=== PATIENT | male | born 1965 | race Caucasian/White ===

== ENCOUNTER → 2017-10-17 14:41 | Outpatient (CLI) | payer MEDICARE, MEDICAID, SELFPAY ==
[2017-10-17 17:22] LABS: Absolute Lymphocyte Count 1.72 X10^3/ul (0.83-4.51); Absolute Neutrophil Count 3.6 X10^3/uL (2.0-7.7); Basophil# 0.04 X10^3/uL; Basophil% 0.7 % (0-1); Eosinophil# 0.09 X10^3/uL; Eosinophils% 1.5 % (0-5); Hematocrit 40.8 % (40-54); Hemoglobin 14.2 g/dl (13.0-16.5); Lymphocyte # 1.72 X10^3/ul (4.0); Mean Corp Hgb Conc 34.8 g/gl (32-36); Mean Corpuscular Hgb 31.7 pg (27.0-32.0); Mean Corpuscular Volume 91.1 fL (80-94); Mean Platelet Vol. 12.2 fl (6.2-12.0); Monocyte# 0.65 X10^3/uL; Monocyte% 10.6 % (0-10); Neutrophil # 3.63 X10^3/uL (2.7-7.7); Platelet Count 167 K/mm3 (150-450); RBC Distribution Width CV 13.5 % (11.6-14.6); RBC Distribution Width SD 44.5 fl (35.1-43.9); Red Blood Count 4.48 M/mm3 (4.6-6.2); White Blood Count 6.1 K/mm3 (4.4-11.0)
[2017-10-17 17:31] LABS: POSITIVE COUNT NO; POSITIVE DIFFERENTIAL NO; POSITIVE MORPHOLOGY NO
[2017-10-17 17:39] LABS: ALB/GLOB Ratio 0.9 RATIO (0.9-2.4); AST(SGOT) 14 U/L (15-37); Alanine Aminotransfer ALT/SGPT 32 U/L (16-61); Albumin, Serum 3.5 g/dL (3.2-5.0); Alkaline Phosphatase 57 U/L (45-117); Anion Gap 9 (5-15); BUN 15 mg/dL (7-18); BUN/Creat Ratio 18.2 RATIO (10-20); Calcium,Total 8.7 mg/dL (8.5-10.1); Chloride 104 mmol/L (98-107); Creatinine, Serum 0.82 mg/dL (0.70-1.30); EST Glomerular Filtration Rate 104 mL/min (>60); Est Glom Filt Rate - Afr Amer 126 mL/min (>60); Globulin 3.9 g/dL (2.2-4.2); Glucose 127 mg/dL (74-106); Potassium 3.9 mmol/L (3.5-5.1); Protein, Total 7.4 g/dL (6.4-8.2); Sodium Level 139 mmol/L (136-145)
== END ==
PROVIDERS: Family Provider Family Medicine Geriatric Medicine; PCP Family Medicine Geriatric Medicine; Visit Provider Family Medicine Geriatric Medicine
DX: E11.9 Type 2 diabetes mellitus without complications (principal); I10 Essential (primary) hypertension
CPT/HCPCS: 36415; 80053; 84443; 85025

== ENCOUNTER → 2017-12-27 08:46 | Outpatient (CLI) | payer MEDICARE, MEDICAID, SELFPAY ==
[2017-12-27 12:10] LABS: Absolute Lymphocyte Count 1.61 X10^3/ul (0.83-4.51); Absolute Neutrophil Count 4.6 X10^3/uL (2.0-7.7); Basophil# 0.04 X10^3/uL; Basophil% 0.6 % (0-1); Eosinophil# 0.09 X10^3/uL; Eosinophils% 1.3 % (0-5); Hematocrit 40.6 % (40-54); Hemoglobin 14.1 g/dl (13.0-16.5); Lymphocyte # 1.61 X10^3/ul (4.0); Lymphocyte % 22.7 % (19-41); Mean Corp Hgb Conc 34.7 g/gl (32-36); Mean Corpuscular Hgb 31.5 pg (27.0-32.0); Mean Corpuscular Volume 90.6 fL (80-94); Mean Platelet Vol. 12.1 fl (6.2-12.0); Monocyte# 0.74 X10^3/uL; Monocyte% 10.4 % (0-10); Neutrophil # 4.61 X10^3/uL (2.7-7.7); Neutrophil % 64.9 % (47-70); Platelet Count 178 K/mm3 (150-450); RBC Distribution Width CV 13.1 % (11.6-14.6); RBC Distribution Width SD 43.4 fl (35.1-43.9); Red Blood Count 4.48 M/mm3 (4.6-6.2); White Blood Count 7.1 K/mm3 (4.4-11.0)
[2017-12-27 12:11] LABS: POSITIVE COUNT NO; POSITIVE DIFFERENTIAL NO; POSITIVE MORPHOLOGY NO
[2017-12-27 12:23] LABS: ALB/GLOB Ratio 0.9 RATIO (0.9-2.4); AST(SGOT) 11 U/L (15-37); Alanine Aminotransfer ALT/SGPT 28 U/L (16-61); Albumin, Serum 3.5 g/dL (3.2-5.0); Alkaline Phosphatase 68 U/L (45-117); Anion Gap 11 (5-15); BUN 14 mg/dL (7-18); BUN/Creat Ratio 14.8 RATIO (10-20); Calcium,Total 8.6 mg/dL (8.5-10.1); Chloride 103 mmol/L (98-107); Creatinine, Serum 0.95 mg/dL (0.70-1.30); EST Glomerular Filtration Rate 89 mL/min (>60); Est Glom Filt Rate - Afr Amer 107 mL/min (>60); Globulin 3.9 g/dL (2.2-4.2); Glucose 193 mg/dL (74-106); Protein, Total 7.4 g/dL (6.4-8.2); Sodium Level 138 mmol/L (136-145); Thyroid Stim Hormone (TSH) 1.34 uIU/mL (0.358-3.74)
[2017-12-28 08:40] LABS: Vitamin D,25 Hydroxy 15.7 ng/mL (29.95-100.01)
== END ==
PROVIDERS: Family Provider Family Medicine Geriatric Medicine; PCP Family Medicine Geriatric Medicine; Visit Provider Family Medicine Geriatric Medicine
DX: I10 Essential (primary) hypertension (principal); E11.9 Type 2 diabetes mellitus without complications; E55.9 Vitamin D deficiency, unspecified
CPT/HCPCS: 36415; 80053; 82306; 84443; 85025

== ENCOUNTER → 2018-04-17 14:27 | Outpatient (CLI) | payer MEDICARE, MEDICAID, SELFPAY ==
[2018-04-17 16:15] LABS: Absolute Lymphocyte Count 1.75 X10^3/ul (0.83-4.51); Absolute Neutrophil Count 4.8 X10^3/uL (2.0-7.7); Basophil# 0.04 X10^3/uL; Basophil% 0.5 % (0-1); Eosinophils% 1.3 % (0-5); Hematocrit 42.8 % (40-54); Hemoglobin 14.7 g/dl (13.0-16.5); Lymphocyte # 1.75 X10^3/ul (4.0); Lymphocyte % 22.7 % (19-41); Mean Corp Hgb Conc 34.3 g/gl (32-36); Mean Corpuscular Hgb 31.3 pg (27.0-32.0); Mean Corpuscular Volume 91.3 fL (80-94); Mean Platelet Vol. 11.8 fl (6.2-12.0); Monocyte# 0.97 X10^3/uL; Monocyte% 12.6 % (0-10); Neutrophil # 4.83 X10^3/uL (2.7-7.7); Neutrophil % 62.6 % (47-70); POSITIVE COUNT NO; POSITIVE DIFFERENTIAL NO; POSITIVE MORPHOLOGY NO; Platelet Count 206 K/mm3 (150-450); RBC Distribution Width CV 13.7 % (11.6-14.6); Red Blood Count 4.69 M/mm3 (4.6-6.2); White Blood Count 7.7 K/mm3 (4.4-11.0)
[2018-04-17 16:34] LABS: ALB/GLOB Ratio 0.9 RATIO (0.9-2.4); AST(SGOT) 27 U/L (15-37); Alanine Aminotransfer ALT/SGPT 48 U/L (16-61); Albumin, Serum 3.6 g/dL (3.2-5.0); Alkaline Phosphatase 83 U/L (45-117); Anion Gap 13 (5-15); BUN 13 mg/dL (7-18); BUN/Creat Ratio 12.5 RATIO (10-20); Chloride 100 mmol/L (98-107); Creatinine, Serum 1.04 mg/dL (0.70-1.30); EST Glomerular Filtration Rate 79 mL/min (>60); Est Glom Filt Rate - Afr Amer 96 mL/min (>60); Globulin 4.2 g/dL (2.2-4.2); Glucose 160 mg/dL (74-106); Potassium 4.3 mmol/L (3.5-5.1); Protein, Total 7.8 g/dL (6.4-8.2); Sodium Level 138 mmol/L (136-145); Thyroid Stim Hormone (TSH) 2.22 uIU/mL (0.358-3.74)
[2018-04-19 13:34] LABS: Hep C Antibodies 0.2 s/co ratio (0.0-0.9)
== END ==
PROVIDERS: Family Provider Family Medicine Geriatric Medicine; PCP Family Medicine Geriatric Medicine; Visit Provider Family Medicine Geriatric Medicine
DX: E11.9 Type 2 diabetes mellitus without complications (principal); I10 Essential (primary) hypertension; Z13.89 Encounter for screening for other disorder
CPT/HCPCS: 36415; 80053; 84443; 85025; 86803

== ENCOUNTER → 2018-07-22 12:10 | Outpatient (CLI) | payer MEDICARE, MEDICAID, SELFPAY ==
[2018-07-22 12:48] LABS: Absolute Lymphocyte Count 1.84 X10^3/ul (0.83-4.51); Basophil# 0.03 X10^3/uL; Basophil% 0.5 % (0-1); Eosinophil# 0.05 X10^3/uL; Eosinophils% 0.8 % (0-5); Hematocrit 42.2 % (40-54); Hemoglobin 14.2 g/dl (13.0-16.5); Lymphocyte # 1.84 X10^3/ul (4.0); Mean Corp Hgb Conc 33.6 g/gl (32-36); Mean Corpuscular Hgb 30.4 pg (27.0-32.0); Mean Corpuscular Volume 90.4 fL (80-94); Mean Platelet Vol. 11.6 fl (6.2-12.0); Monocyte# 0.61 X10^3/uL; Monocyte% 9.3 % (0-10); Neutrophil # 4.03 X10^3/uL (2.7-7.7); Neutrophil % 61.4 % (47-70); Platelet Count 214 K/mm3 (150-450); RBC Distribution Width SD 46.2 fl (35.1-43.9); Red Blood Count 4.67 M/mm3 (4.6-6.2); White Blood Count 6.6 K/mm3 (4.4-11.0)
--- NOTE | 2018-07-22 12:51 | RAD_ITS ---
STUDY: X-RAY - ABDOMEN/PELVIS REASON FOR EXAM: Male, 53 years old. Constipation. TECHNIQUE: AP supine and upright views of the abdomen and pelvis. COMPARISON: Comparison is made with prior study dated September 02, 2016. FINDINGS: Normal visualized lung bases. There is a moderate amount of colonic fecal material. There is no demonstrated free abdominal air. The visualized liver, spleen and kidneys are grossly normal in size and morphology. Normal soft tissue structures. There are degenerative changes of the visualized lumbar spine. RAD/[employer] Decub and/or Erect IMPRESSION: Moderate amount of fecal material is seen in the colon. Electronically Signed: Rafiq Sam MD at 13:38 EST Tel [phone], Service support ,
[2018-07-22 12:56] LABS: POSITIVE COUNT NO; POSITIVE DIFFERENTIAL NO; POSITIVE MORPHOLOGY NO
[2018-07-22 13:24] LABS: ALB/GLOB Ratio 0.9 RATIO (0.9-2.4); AST(SGOT) 11 U/L (15-37); Alanine Aminotransfer ALT/SGPT 26 U/L (16-61); Albumin, Serum 3.5 g/dL (3.2-5.0); Alkaline Phosphatase 81 U/L (45-117); Anion Gap 9 (5-15); BUN 10 mg/dL (7-18); BUN/Creat Ratio 9.6 RATIO (10-20); Calcium,Total 8.6 mg/dL (8.5-10.1); Chloride 106 mmol/L (98-107); Creatinine, Serum 1.04 mg/dL (0.70-1.30); EST Glomerular Filtration Rate 79 mL/min (>60); Est Glom Filt Rate - Afr Amer 96 mL/min (>60); Globulin 4.1 g/dL (2.2-4.2); Glucose 113 mg/dL (74-106); Potassium 3.8 mmol/L (3.5-5.1); Protein, Total 7.6 g/dL (6.4-8.2); Sodium Level 139 mmol/L (136-145); Thyroid Stim Hormone (TSH) 2.37 uIU/mL (0.358-3.74)
== END ==
PROVIDERS: Family Provider Family Medicine Geriatric Medicine; PCP Family Medicine Geriatric Medicine; Referring Provider Family Medicine Geriatric Medicine; Visit Provider Family Medicine Geriatric Medicine
DX: E11.9 Type 2 diabetes mellitus without complications (principal); I10 Essential (primary) hypertension
CPT/HCPCS: 36415; 74019; 80053; 84443; 85025

== ENCOUNTER 2018-08-06 17:38 | Emergency (ER) | payer MEDICARE, MEDICAID, SELFPAY ==
[2018-08-06 17:40] VITALS: BP 134/77; PULSE 83; RESP 18; TEMP 36.6; O2SAT 97; BMI 34.7
[2018-08-06 17:54] VITALS: TEMP 36.6
--- NOTE | 2018-08-06 18:16 | ED.VISSUMM ---
- ER Visit Summary Date of Service: 08/06/18 Chief Complaint: Rash History of Present Illness: The patient is a 53 M presenting for evaluation secondary to a skin rash. Patient lives in a [facility] has an underlying history of seizures diabetes. Patient apparently has had a rash over the course of the last week on his left tubbs. He denies any injuries. He denies any pain. Denies any constitutional symptoms such as fever. Patient's caregiver who is present states that the patient typically does not complain about things however. Physical Examination: Physical exam unremarkable except for examination of the patient's left lower extremity. There is a palm sized area of erythema with 2 discrete ulcerations. There is no subcutaneous emphysema. There is no lymphangitic streaking. 2+ PT pulse that is bilaterally symmetric with contralateral side. Test Results: None indicated Emergency Department Course and Treatment: Patient presented secondary to a rash. Physical exam likely consistent with cellulitis. Patient will be treated with a course of Keflex and nonstick dressings. He will follow-up with primary care in the next 2-3 days. Disposition: Discharge Impression: 1. Left leg cellulitis This note was generated with [employer] dictation software. It may contain incorrect words, spelling, and punctuation that were not noted in review of the chart prior to signing ED Disposition - Plan for ED Patient: Disposition: Home or Assisted Living Chief Complaint: Cellulitis Diagnosis: Left leg cellulitis Instructions: Discharge Instructions for Cellulitis Prescriptions: Cephalexin [Keflex] 500 mg PO Q6 #40 cap Referrals: Cali Lopez Chi, MD [Primary Care Provider] - 2 Days Additional Instructions: Perform dressing changes with a nonstick dressing once to twice a day
--- NOTE | 2018-08-06 18:20 | ED.DCSUM_ITS ---
- ER Visit Summary Date of Service: 08/06/18 Chief Complaint: Rash History of Present Illness: The patient is a 53 M presenting for evaluation secondary to a skin rash. Patient lives in a [facility] has an underlying history of seizures diabetes. Patient apparently has had a rash over the course of the last week on his left tubbs. He denies any injuries. He denies any pain. Denies any constitutional symptoms such as fever. Patient's caregiver who is present states that the patient typically does not complain about things however. Physical Examination: Physical exam unremarkable except for examination of the patient's left lower extremity. There is a palm sized area of erythema with 2 discrete ulcerations. There is no subcutaneous emphysema. There is no lymphangitic streaking. 2+ PT pulse that is bilaterally symmetric with contralateral side. Test Results: None indicated Emergency Department Course and Treatment: Patient presented secondary to a rash. Physical exam likely consistent with cellulitis. Patient will be treated with a course of Keflex and nonstick dressings. He will follow-up with primary care in the next 2-3 days. Disposition: Discharge Impression: 1. Left leg cellulitis This note was generated with [employer] dictation software. It may contain incorrect words, spelling, and punctuation that were not noted in review of the chart pr ior to signing ED Disposition - Plan for ED Patient: Disposition: Home or Assisted Living Chief Complaint: Cellulitis Diagnosis: Left leg cellulitis Instructions: Discharge Instructions for Cellulitis Prescriptions: Cephalexin [Keflex] 500 mg PO Q6 #40 cap Referrals: Cali Lopez Chi, MD [Primary Care Provider] - 2 Days Additional Instructions: Perform dressing changes with a nonstick dressing once to twice a day
[2018-08-06 18:40] VITALS: BP 120/77; PULSE 80; RESP 14
--- OUTSIDE RECORDS SUMMARY | 2018-09-23 00:03 | XMS RPT_ITS ---
:1965 Author Organization OHIP Support Name Relationship Address Phone D Unavailable Unavailable Unavailable ALDO, MALLORY Unavailable Unavailable + NURSE, DENIS Unavailable [address] + [place] [address] D Unavailable Unavailable Unavailable ALDO, MALLORY Unavailable Unavailable + NURSE, DENIS Unavailable [address] + [place] [address] D Unavailable Unavailable Unavailable ALDO, MALLORY Unavailable Unavailable + NURSE, DENIS Unavailable [address] + [place] [address] D Unavailable Unavailable Unavailable ALDO, MALLORY Unavailable Unavailable + NURSE, DENIS Unavailable [address] + [place] [address] D Unavailable Unavailable Unavailable ALDO, MALLORY Unavailable Unavailable + NURSE, DENIS Unavailable [address] + [place] [address] D Unavailable Unavailable Unavailable ALDO, MALLORY Unavailable Unavailable + NURSE, DENIS Unavailable [address] + [place] [address] D Unavailable Unavailable Unavailable PAULA JOVANNY Unavailable [address] + [place] [address] NURSE, DENIS Unavailable [address] + [place] [address] D Unavailable Unavailable Unavailable MITCHELL, JOVANNY Unavailable [address] + [place] [address] ANNABEL MERAZ Unavailable [address] + [place] [address] D Unavailable Unavailable Unavailable JOVANNY MITCHELL Unavailable [address] + [place] [address] ANNABEL MERAZ Unavailable [address] + [place] [address] D Unavailable Unavailable Unavailable PAULA JOVANNY Unavailable [address] + [place] [address] ANNABEL MERAZ Unavailable [address] + [place] [address] Care Team Providers Name Role Phone John, Cali Chi Primary Care Unavailable Brent Pardo Attending Unavailable John, Cali Chi Attending Unavailable John, Cali Chi Primary Care Unavailable Anival, Becky E Attending Unavailable John, Cali Chi Primary Care Unavailable John, Cali Chi Attending Unavailable John, Cali Chi Primary Care Unavailable John, Cali Chi Referring Unavailable John, Cali Chi Attending Unavailable John, Cali Chi Primary Care Unavailable John, Cali Chi Attending Unavailable John, Cali Chi Primary Care Unavailable John, Cali Chi Attending Unavailable John, Cali Chi Primary Care Unavailable Anival, Becky E Attending Unavailable John, Cali Chi Primary Care Unavailable Anival, Becky E Consulting Unavailable Anival, Becky E Attending Unavailable John, Cali Chi Primary Care Unavailable Anival, Becky E Attending Unavailable John, Cali Chi Primary Care Unavailable Anival, Becky E Consulting Unavailable Vince Rodas Referring Unavailable PROBLEMS PROBLEMS DATE TYPE CONDITION / CODE ATTENDING STATUS SOURCE 08/08/2018 Unknown L03.119 - Cellulitis John, Cali Chi Active [place] of unspecified part Community of limb / Hospital L03.119(ICD-10) Repository 08/08/2018 Unknown B95.62 - Methicillin John, Cali Chi Active [facility] resistant Community Staphylococcus Hospital aureus infection as Repository the cause of diseases classified elsewhere / B95.62(ICD-10) 07/22/2018 Unknown E11.9 - Type 2 John, Cali Chi Active [place] diabetes mellitus Community without Hospital complications / Repository E11.9(ICD-10) 07/22/2018 Unknown I10 - Essential John, Cali Chi Active [facility] (primary) Community hypertension / Hospital I10(ICD-10) Repository 12/27/2017 Unknown E55.9 - Vitamin D John, Cali Chi Active [place] deficiency, Community unspecified / Hospital E55.9(ICD-10) Repository PROCEDURES PROCEDURES No Procedure Records FoundRESULTS RESULTS WOUND CTR HISTORY Observed: 08/14/2018 Status: F Source: [place] AND PHYSICAL 9:41 PM [facility] H[facility] REPOSITORY [facility] [address] [place] [address] Wound Ctr History AND Physical 08/14/18 0839 MR#: [id number] Acct: [id number] Name: ROBINSON SHINE Jr. Rep #: [id number] : 1965 53 From: Becky Florian FRENCH BINDERAyeshaC PCP: John UNDERWOOD,Cali Hadley Status: REG RCR Y Location: (1) Contusion of left lower leg Status: Acute Current Visit: Yes Code(s): S80.12XA - Contusion of left lower leg, initial encounter (2) Cellulitis of left lower leg Status: Acute Current Visit: Yes Code(s): L03.116 - Cellulitis of left lower limb (3) Chronic anticoagulation Status: Chronic Current Visit: Yes Code(s): Z79.01 - USP (current) use of anticoagulants (4) Diabetes mellitus, type 2 Status: Chronic Current Visit: Yes Code(s): E11.9 - Type 2 diabetes mellitus without complications History of Present Illness Date of Service: 08/13/18 Chief Complaint: Left lower anterior leg redness and swelling. History of Wound: This is a 53-year-old white male with cognitive impairment who is a resident of a halfway. He presents to the [facility] accompanied by an aide. He was referred by his PCP, Dr. Lopez. On 08/06/18 he was seen in the ED for left lower anterior extremity cellulitis and he had two small open areas. He was treated with Keflex. He followed up with his PCP a couple days later and Dr. Lopez obtained a wound culture that showed MRSA. The patient was started on Sivextro daily along with the Keflex. The patient was then referred to the wound healing clinic for further wound management. His left lower extremity does not have any opened areas at this time, but he does have significant redness and +1-+2 bilateral lower extremity edema. Past Medical History Past Medical History: Chronic Problems Chronic anticoagulation (Chronic) Nondisplaced fracture of right humerus (Chronic) Seizure disorder (Chronic) Depression (Chronic) Diabetes mellitus, type 2 (Chronic) Hyperlipidemia (Chronic) Mental retardation (Chronic) History of syncope (Chronic) Tobacco user (Chronic) Surgical History: - - It was reported that the patient has history of gallbladder surgery. Allergies/Adverse Reactions: Allergies No Known Allergies Allergy (Verified 08/06/18 17:39) Home Medications: Ambulatory Orders Medication Instructions Recorded Metformin HCl [Metformin HCl ER] 500 mg PO BID 09/27/16 Cephalexin [Keflex] 500 mg PO Q6 #40 cap 08/06/18 Empagliflozin [Jardiance] 25 mg PO DAILY 08/06/18 - Family History Maternal - - The patient's mother suffered from diabetes mellitus. She at the age of 54. Paternal - - The patient's father from a pill overdose, age unknown. Smoking Status: Former smoker Review of Systems Constitutional: Denies: Chills, Fever, Weight Change Eyes: Denies: Pain, Vision Change HEENT: Denies: Difficulty Hearing, Difficulty Swallowing, Sinus Congestion Cardiovascular: Reports: Edema. Denies: Chest Pain, Palpitations Respiratory: Denies: Cough, Shortness of Breath Gastrointestinal: Denies: Diarrhea, Nausea, Vomiting Musculoskeletal: Reports: Leg Pain - Left lower extremity Skin: Reports: Dryness - Has a history of seborrheic dermatitis of scalp and face Psychiatric: Denies: Homicidal Ideations, Suicidal Ideations - Physical Exam Vital Signs Temp Pulse Resp BP 97.5 F L 72 18 132/79 H 08/13/18 15:53 08/13/18 15:53 08/13/18 15:53 08/13/18 15:53 General: Alert, Cooperative, No apparent distress HEENT: Atraumatic Lungs: Clear to auscultation, Normal air movement, No rhonchi Cardiovascular: Regular rate, Regular Rhythm Extremities: Edema - Bilateral lower extremity +1-+2 pitting edema Skin: Ulcer/ Wound - Left lower anterior leg with redness/bruising. No Visible open areas at this time, - - Has significant amount of dry/peeling facial skin Wound Measurements and Assessment WC - Nurse 1 - General Ulcer Measurement Start: 08/13/18 15:53 Freq: Status: Active Protocol: Activity Type Activity Date Activity User E-Sign Co-Sign Detail Recorded Client Recorded Date Recorded By Document 08/13/18 15:53 BON [id number] 08/13/18 16:05 BON Musculoskeletal: No Tenderness to Palpation of Joints or Extremities Neurological: Neuro grossly intact Psych/Mental Status: Flat Affect Debridement Note No debridement was completed today Assessment/Plan Active Problems Contusion of left lower leg (Acute) Cellulitis of left lower leg (Acute) Chronic anticoagulation (Chronic) Diabetes mellitus, type 2 (Chronic) Assessment: 1. Contusion of left lower leg. 2. Cellulitis of left lower leg. 3. Chronic anticoagulation. 4. Diabetes mellitus, type 2 Plan: Left anterior lower extremity is bruised and inflammed. There is no opened area today. Wound cultures showed MRSA and he was diagnosed with cellulitis on 08/06/18. Patient will continue the Keflex and Sivextro as previously prescribed. We will apply double layer tubigrip to the left lower leg. Patient encouraged to elevate legs 30 minutes at least 3-4 times per day. He will follow up in 3 weeks for re-evaluation (follow up is 3 weeks due to the holidays). Patient and dog daycare provider instructed to notify the wound center before next appointment if develop any issues with his left lower leg. Code Visit Office Visits / Consults: [id number] OV L3 Est 08/14/185 <Electronically signed by Becky POLO> Date Becky POLO CC: Signed Observed: 08/08/2018 Status: F Source: [place] CULTURE, DEEP WOUND 4:15 PM [facility] HOSPITAL REPOSITORY IN BAG/CANCELED BY 2ND SHIFT/PHLEB FIXED 1ST SHIFT . Gram Stain Gram Stain Rare Red Blood Cells 2+ Gram positive cocci in clusters Wound Culture Copy of report sent to Infection Control Printer [id number] 08/11/18 0724 [place]. RESULTS CALLED TO NURSE LINE 08/11/18 0491 Prachi Han. ORGANISM 1: Meth. resistant Staph. aureus Amount Growth 3+ Meth. resistant Staph. aureus: REACTION Benzylpenicillin NF >=0.5 R Cefoxitin *NF + Clindamycin $$ <=0.25 S Inducable Clindamycin Resistan - Erythromycin $ 1 I Gentamicin $ <=0.5 S Levofloxacin $ 0.25 S Linezolid $$$$ 2 S Oxacillin NF >=4 R Tigecycline $$$$ <=0.12 S Rifampin $$ <=0.5 S Tetracycline NF <=1 S Trimethoprim/Sulfametho $ <=10 S Vancomycin $ 1 S (NF) indicates non-formulary drug at [facility]. Approval by Infectious Disease Specialist required before non-formulary drugs may be ordered and/or dispensed. * CLSI guidelines does not recommend testing of cephalosporins. This interpretation is deduced from Beta-lactam/penicillin results. Cult, Anaerobic Test not performed Performed By: #### M100.1500 #### [facility] [address], [address] MRSA WOUND DNA BY Collected: 08/08/2018 Status: F Source: [place] PCR 4:15 PM [facility] REPOSITORY Order Comment: IN BAG/CANCELED BY 2ND SHIFT/PHLEB FIXED 1ST SHIFT . RESULTS CALLED TO CHRISSIE Ray 08/09/18 1358 [place]. REPORT READ BACK BY CHRISSIE Ray. Specimen Source? LEG TYPE CODE TESTS RESULT OUT OF REFERENCE UNITS RANGE LAB L8200.1100 Negative High MRSA POSITIVE RESULT LAB L8200.1150 Negative High SA RESULT POSITIVE Performed By: #### L8200.1075 #### [facility] [address], [address] EMERGENCY DEPARTMENT Observed: 08/07/2018 Status: F Source: [place] SUMMARY 12:35 AM [facility] REPOSITORY [facility] Medical Records Department [address] [facility] [place] [address] Emergency Department Summary 08/06/18 1816 MR#: [id number] Acct: [id number] Name: ROBINSON SHINE JrRenaldo Rep #: [id number] : 1965 53 From: Brent Pardo MD PCP: John UNDERWOOD,Cali Hadley Status: DEP ER - ER Visit Summary Date of Service: 08/06/18 Chief Complaint: Rash History of Present Illness: The patient is a 53 M presenting for evaluation secondary to a skin rash. Patient lives in a halfway has an underlying history of seizures diabetes. Patient apparently has had a rash over the course of the last week on his left tubbs. He denies any injuries. He denies any pain. Denies any constitutional symptoms such as fever. Patient's caregiver who is present states that the patient typically does not complain about things however. Physical Examination: Physical exam unremarkable except for examination of the patient's left lower extremity. There is a palm sized area of erythema with 2 discrete ulcerations. There is no subcutaneous emphysema. There is no lymphangitic streaking. 2+ PT pulse that is bilaterally symmetric with contralateral side. Test Results: None indicated Emergency Department Course and Treatment: Patient presented secondary to a rash. Physical exam likely consistent with cellulitis. Patient will be treated with a course of Keflex and nonstick dressings. He will follow-up with primary care in the next 2-3 days. Disposition: Discharge Impression: 1. Left leg cellulitis This note was generated with Needl dictation software. It may contain incorrect words, spelling, and punctuation that were not noted in review of the chart prior to signing ED Disposition - Plan for ED Patient: Disposition: Home or Assisted Living Chief Complaint: Cellulitis Diagnosis: Left leg cellulitis Instructions: Discharge Instructions for Cellulitis Prescriptions: Cephalexin [Keflex] 500 mg PO Q6 #40 cap Referrals: Cali Lopez Chi, MD [Primary Care Provider] - 2 Days Additional Instructions: Perform dressing changes with a nonstick dressing once to twice a day What to do if you have Problems For any increased pain, shortness of breath, bleeding, nausea or vomiting, chest pain, or any unexpected problems, contact your Primary Care Provider. Call [facility] ([phone]) or report to the closest Emergency Room. Call 911 if necessary. 08/07/18 0035 <Electronically signed by Brent Pardo MD> Date Brent Pardo MD Cosigner Signature (If Indicated): Date CC: Cali Lopez MD ABD INC DECUB Observed: 07/22/2018 Status: F Source: [place] AND/OR ERECT 12:51 PM [facility] REPOSITORY [facility] Imaging Services [address] [address] Abd Inc Decub and/or Erect MR#: [id number] Acct: [id number] Name: ROBINSON SHINE Jr. Rep #: [id number] : 1965 M 53 From: Rafiq Sam MD PCP: Cali Lopez MD, Chi Status: REG CLI Study: Abd Inc Decub and/or Erect Date of Exam: 07/22/18 Exam# [id number] Ordering Dr: Cali Lopez MD STUDY: X-RAY - ABDOMEN/PELVIS REASON FOR EXAM: Male, 53 years old. Constipation. TECHNIQUE: AP supine and upright views of the abdomen and pelvis. COMPARISON: Comparison is made with prior study dated September 02, 2016. FINDINGS: Normal visualized lung bases. There is a moderate amount of colonic fecal material. There is no demonstrated free abdominal air. The visualized liver, spleen and kidneys are grossly normal in size and morphology. Normal soft tissue structures. There are degenerative changes of the visualized lumbar spine. RAD/Abd Inc Decub and/or Erect IMPRESSION: Moderate amount of fecal material is seen in the colon. Electronically Signed: Rafiq Sam MD at 13:38 EST Tel [phone], Service support , CC: Cali Lopez MD Neurology Epilepsy Physician: Signed CBC W/DIFF, AUTOMATED Collected: 07/22/2018 Status: F Source: [place] 12:12 PM [facility] REPOSITORY TYPE CODE TESTS RESULT OUT OF RANGE REFERENCE UNITS LAB L100.1000 4.4-11.0 K/mm3 Normal WBC 6.6 LAB L100.1200 4.6-6.2 M/mm3 Normal RBC 4.67 LAB L100.1300 13.0-16.5 g/dl Normal HGB 14.2 LAB L100.1400 40-54 % Normal HCT 42.2 LAB L100.1500 80-94 fL Normal MCV 90.4 LAB L100.1600 27.0-32.0 pg Normal MCH 30.4 LAB L100.1700 32-36 g/gl Normal MCHC 33.6 LAB L100.1810 11.6-14.6 % Normal RDW CV 14.0 LAB L100.1820 35.1-43.9 fl High RDW SD 46.2 LAB L100.1900 150-450 K/mm3 Normal PLT 214 LAB L100.2000 6.2-12.0 fl Normal MPV 11.6 LAB L100.2100 47-70 % Normal NEUT% 61.4 LAB L100.2200 19-41 % Normal LY% 28.0 LAB L100.2300 0-10 % Normal MONO% 9.3 LAB L100.2400 0-5 % Normal EO% 0.8 LAB L100.2500 0-1 % Normal BASO% 0.5 LAB L100.2550 0.0-0.9 % Normal IM GRAN % 0.000 Result Comment: IG% - Immature Granulocytes (promyelocytes, myelocytes and metamyelocytes) > 1% indicates that a LEFT SHIFT is Present. LAB L100.2620 2.0-7.7 X10 3/uL Normal Absolute Neut 4.0 LAB L100.2720 0.83-4.51 X10 3/ul Normal Absolute Lymph 1.84 Performed By: #### L100.0100 #### [facility] [address] [place], [place], [address] COMPREHENSIVE METABOLIC Collected: 07/22/2018 Status: F Source: [place] DAVILA 12:12 PM [facility] REPOSITORY TYPE CODE TESTS RESULT OUT OF RANGE REFERENCE UNITS LAB L501.0100 74-106 mg/dL High GLU 113 Result Comment: Fasting Glucose result from 100 to 125 mg/dL suggests IMPAIRED HOMEOSTASIS per A.D.A. criteria. Please note revised GLUCOSE reference range effective 2017. LAB L501.1000 7-18 mg/dL Normal BUN 10 LAB L501.1100 0.70-1.30 mg/dL Normal CREAT,SERUM 1.04 Result Comment: The validity of the calculated GFR AND GFRAA in patients over 70 years has not been determined. Clinical correlation is essential. LAB L501.1110 >60 mL/min Normal EST GFR 79 Result Comment: Non- GFR Calc LAB L501.1115 >60 mL/min Normal EST GFR - AA 96 Result Comment: GFR Calc LAB L501.1300 10-20 RATIO Low BUN/CRE 9.6 LAB L501.1500 6.4-8.2 g/dL Normal T PROT 7.6 LAB L501.1800 3.2-5.0 g/dL Normal ALB 3.5 LAB L501.1950 2.2-4.2 g/dL Normal GLOB 4.1 LAB L501.2000 0.9-2.4 RATIO Normal A/G 0.9 LAB L501.2200 8.5-10.1 mg/dL Normal CA 8.6 LAB L501.4100 15-37 U/L Low AST 11 LAB L501.4305 45-117 U/L Normal ALK P 81 LAB L501.4405 16-61 U/L Normal ALT 26 LAB L501.4600 0.20-1.00 mg/dL Normal T BILI 0.40 LAB L501.5300 136-145 mmol/L Normal NA 139 LAB L501.5600 3.5-5.1 mmol/L Normal K 3.8 LAB L501.5900 98-107 mmol/L Normal CL 106 LAB L501.6100 21.0-32.0 mmol/L Normal CO2 24.0 LAB L501.6200 5-15 Normal GAP 9 Performed By: #### L500.4050, L501.9520 #### [facility] [place], [address] THYROID STIM HORMONE Collected: 07/22/2018 Status: F Source: [place] (TSH) 12:12 PM [facility] REPOSITORY TYPE CODE TESTS RESULT OUT OF RANGE REFERENCE UNITS LAB L501.9520 0.358-3.74 uIU/mL Normal TSH 2.37 Performed By: #### L500.4050, L501.9520 #### [facility] [address] [facility] [address] [place], [place], [address] CBC W/DIFF, AUTOMATED Collected: 04/17/2018 Status: F Source: [place] 2:29 PM [facility] REPOSITORY TYPE CODE TESTS RESULT OUT OF RANGE REFERENCE UNITS LAB L100.1000 4.4-11.0 K/mm3 Normal WBC 7.7 LAB L100.1200 4.6-6.2 M/mm3 Normal RBC 4.69 LAB L100.1300 13.0-16.5 g/dl Normal HGB 14.7 LAB L100.1400 40-54 % Normal HCT 42.8 LAB L100.1500 80-94 fL Normal MCV 91.3 LAB L100.1600 27.0-32.0 pg Normal MCH 31.3 LAB L100.1700 32-36 g/gl Normal MCHC 34.3 LAB L100.1810 11.6-14.6 % Normal RDW CV 13.7 LAB L100.1820 35.1-43.9 fl High RDW SD 45.0 LAB L100.1900 150-450 K/mm3 Normal PLT 206 LAB L100.2000 6.2-12.0 fl Normal MPV 11.8 LAB L100.2100 47-70 % Normal NEUT% 62.6 LAB L100.2200 19-41 % Normal LY% 22.7 LAB L100.2300 0-10 % High MONO% 12.6 LAB L100.2400 0-5 % Normal EO% 1.3 LAB L100.2500 0-1 % Normal BASO% 0.5 LAB L100.2550 0.0-0.9 % Normal IM GRAN % 0.300 Result Comment: IG% - Immature Granulocytes (promyelocytes, myelocytes and metamyelocytes) > 1% indicates that a LEFT SHIFT is Present. LAB L100.2620 2.0-7.7 X10 3/uL Normal Absolute Neut 4.8 LAB L100.2720 0.83-4.51 X10 3/ul Normal Absolute Lymph 1.75 Performed By: #### L100.0100 #### [facility] [address] [facility] [place], [address] COMPREHENSIVE METABOLIC Collected: 04/17/2018 Status: F Source: [place] 2:29 PM [facility] REPOSITORY TYPE CODE TESTS RESULT OUT OF RANGE REFERENCE UNITS LAB L501.0100 74-106 mg/dL High GLU 160 Result Comment: Fasting Glucose result greater than or equal to 126 mg/dL suggests DIABETES MELLITUS per A.D.A. criteria. Please note revised GLUCOSE reference range effective 2017. LAB L501.1000 7-18 mg/dL Normal BUN 13 LAB L501.1100 0.70-1.30 mg/dL Normal CREAT,SERUM 1.04 Result Comment: The validity of the calculated GFR AND GFRAA in patients over 70 years has not been determined. Clinical correlation is essential. LAB L501.1110 >60 mL/min Normal EST GFR 79 Result Comment: Non- GFR Calc LAB L501.1115 >60 mL/min Normal EST GFR - AA 96 Result Comment: GFR Calc LAB L501.1300 10-20 RATIO Normal BUN/CRE 12.5 LAB L501.1500 6.4-8.2 g/dL T Normal PROT 7.8 LAB L501.1800 3.2-5.0 g/dL Normal ALB 3.6 LAB L501.1950 2.2-4.2 g/dL Normal GLOB 4.2 LAB L501.2000 0.9-2.4 RATIO Normal A/G 0.9 LAB L501.2200 8.5-10.1 mg/dL CA Normal 9.0 LAB L501.4100 15-37 U/L Normal AST 27 Result Comment: Slight Hemolysis, Result may be falsely increased. LAB L501.4305 45-117 U/L Normal ALK P 83 LAB L501.4405 16-61 U/L Normal ALT 48 LAB L501.4600 0.20-1.00 mg/dL Normal T BILI 0.20 LAB L501.5300 136-145 mmol/L Normal NA 138 LAB L501.5600 3.5-5.1 mmol/L Normal K 4.3 Result Comment: Slight Hemolysis, Result may be falsely increased. LAB L501.5900 98-107 mmol/L Normal CL 100 LAB L501.6100 21.0-32.0 mmol/L Normal CO2 25.0 LAB L501.6200 5-15 Normal GAP 13 Performed By: #### L500.4050, L501.9520 #### [facility] [address] [place], [place], [address] THYROID STIM HORMONE Collected: 04/17/2018 Status: F Source: [place] (TSH) 2:29 PM [facility] REPOSITORY TYPE CODE TESTS RESULT OUT OF RANGE REFERENCE UNITS LAB L501.9520 0.358-3.74 uIU/mL Normal TSH 2.22 Performed By: #### L500.4050, L501.9520 #### [facility] [address] [facility] [address] [place], [place], [id number] HEPATITIS C ANTIBODIES Collected: 04/17/2018 Status: F Source: [place] 2:29 PM [facility] REPOSITORY TYPE CODE TESTS RESULT OUT OF RANGE REFERENCE UNITS LAB L3100.0650 0.0-0.9 s/co ratio Normal HEP C AB 0.2 Result Comment: Negative: < 0.8 Indeterminate: 0.8 - 0.9 Positive: > 0.9 The CDC recommends that a positive HCV antibody result be followed up with a HCV Nucleic Acid Amplification test (176111). Performed at: - [facility] [id number] Customer Service Representative Teacher: Octavio Reaves PhD, Phone: [phone] Performed By: #### L3100.0625 #### [facility] (refer to report for specific site) refer to report for address and phone number CBC W/DIFF, AUTOMATED Collected: 12/27/2017 Status: F Source: [place] 9:40 AM [facility] REPOSITORY TYPE CODE TESTS RESULT OUT OF RANGE REFERENCE UNITS LAB L100.1000 4.4-11.0 K/mm3 Normal WBC 7.1 LAB L100.1200 4.6-6.2 M/mm3 Low RBC 4.48 LAB L100.1300 13.0-16.5 g/dl Normal HGB 14.1 LAB L100.1400 40-54 % Normal HCT 40.6 LAB L100.1500 80-94 fL Normal MCV 90.6 LAB L100.1600 27.0-32.0 pg Normal MCH 31.5 LAB L100.1700 32-36 g/gl Normal MCHC 34.7 LAB L100.1810 11.6-14.6 % Normal RDW CV 13.1 LAB L100.1820 35.1-43.9 fl Normal RDW SD 43.4 LAB L100.1900 150-450 K/mm3 Normal PLT 178 LAB L100.2000 6.2-12.0 fl High MPV 12.1 LAB L100.2100 47-70 % Normal NEUT% 64.9 LAB L100.2200 19-41 % Normal LY% 22.7 LAB L100.2300 0-10 % High MONO% 10.4 LAB L100.2400 0-5 % Normal EO% 1.3 LAB L100.2500 0-1 % Normal BASO% 0.6 LAB L100.2550 0.0-0.9 % Normal IM GRAN % 0.100 Result Comment: IG% - Immature Granulocytes (promyelocytes, myelocytes and metamyelocytes) > 1% indicates that a LEFT SHIFT is Present. LAB L100.2620 2.0-7.7 X10 3/uL Normal Absolute Neut 4.6 LAB L100.2720 0.83-4.51 X10 3/ul Normal Absolute Lymph 1.61 Performed By: #### L100.0100 #### [facility] [address] [place], [place], [address] COMPREHENSIVE METABOLIC Collected: 12/27/2017 Status: F Source: [facility] 9:40 AM [facility] REPOSITORY TYPE CODE TESTS RESULT OUT OF RANGE REFERENCE UNITS LAB L501.0100 74-106 mg/dL High GLU 193 Result Comment: Fasting Glucose result greater than or equal to 126 mg/dL suggests DIABETES MELLITUS per A.D.A. criteria. Please note revised GLUCOSE reference range effective 2017. LAB L501.1000 7-18 mg/dL Normal BUN 14 LAB L501.1100 0.70-1.30 mg/dL Normal CREAT,SERUM 0.95 Result Comment: The validity of the calculated GFR AND GFRAA in patients over 70 years has not been determined. Clinical correlation is essential. LAB L501.1110 >60 mL/min Normal EST GFR 89 Result Comment: Non- GFR Calc LAB L501.1115 >60 mL/min Normal EST GFR - AA 107 Result Comment: GFR Calc LAB L501.1300 10-20 RATIO Normal BUN/CRE 14.8 LAB L501.1500 6.4-8.2 g/dL T Normal PROT 7.4 LAB L501.1800 3.2-5.0 g/dL Normal ALB 3.5 LAB L501.1950 2.2-4.2 g/dL Normal GLOB 3.9 LAB L501.2000 0.9-2.4 RATIO Normal A/G 0.9 LAB L501.2200 8.5-10.1 mg/dL CA Normal 8.6 LAB L501.4100 15-37 U/L Low AST 11 Result Comment: Slight Hemolysis, Result may be falsely increased. LAB L501.4305 45-117 U/L Normal ALK P 68 LAB L501.4405 16-61 U/L Normal ALT 28 LAB L501.4600 0.20-1.00 mg/dL Normal T BILI 0.40 LAB L501.5300 136-145 mmol/L Normal NA 138 LAB L501.5600 3.5-5.1 mmol/L Normal K 4.0 Result Comment: Slight Hemolysis, Result may be falsely increased. LAB L501.5900 98-107 mmol/L Normal CL 103 LAB L501.6100 21.0-32.0 mmol/L Normal CO2 24.0 LAB L501.6200 5-15 Normal GAP 11 Performed By: #### L500.4050, L501.9520 #### [facility] [address] [place], [place], [id number] THYROID STIM HORMONE Collected: 12/27/2017 Status: F Source: [place] (TSH) 9:40 AM [facility] REPOSITORY TYPE CODE TESTS RESULT OUT OF RANGE REFERENCE UNITS LAB L501.9520 0.358-3.74 uIU/mL Normal TSH 1.34 Performed By: #### L500.4050, L501.9520 #### [facility] [address] [place], [place], [address] VITAMIN D,25 HYDROXY Collected: 12/27/2017 Status: F Source: [place] 9:40 AM [facility] REPOSITORY TYPE CODE TESTS RESULT OUT OF REFERENCE UNITS RANGE LAB L506.1000 29.95-100.01 ng/mL Low Vitamin D 15.7 25-OH Result Comment: Vitamin D 25(OH) Status Range Deficiency <20 ng/mL (50nmol/L) Insuffciency 20 - 30 ng/mL (50 - 75 nmol/L) Sufficiency 30 - 100 ng/mL (75 - 250 nmol/L) Toxicity >100 ng/mL (>250 nmol/L) Performed By: #### L506.1000 #### [facility] [place], [address] CBC W/DIFF, AUTOMATED Collected: 10/17/2017 Status: F Source: [place] 2:44 PM [facility] REPOSITORY TYPE CODE TESTS RESULT OUT OF RANGE REFERENCE UNITS LAB L100.1000 4.4-11.0 K/mm3 Normal WBC 6.1 LAB L100.1200 4.6-6.2 M/mm3 Low RBC 4.48 LAB L100.1300 13.0-16.5 g/dl Normal HGB 14.2 LAB L100.1400 40-54 % Normal HCT 40.8 LAB L100.1500 80-94 fL Normal MCV 91.1 LAB L100.1600 27.0-32.0 pg Normal MCH 31.7 LAB L100.1700 32-36 g/gl Normal MCHC 34.8 LAB L100.1810 11.6-14.6 % Normal RDW CV 13.5 LAB L100.1820 35.1-43.9 fl High RDW SD 44.5 LAB L100.1900 150-450 K/mm3 Normal PLT 167 LAB L100.2000 6.2-12.0 fl High MPV 12.2 LAB L100.2100 47-70 % Normal NEUT% 59.0 LAB L100.2200 19-41 % Normal LY% 28.0 LAB L100.2300 0-10 % High MONO% 10.6 LAB L100.2400 0-5 % Normal EO% 1.5 LAB L100.2500 0-1 % Normal BASO% 0.7 LAB L100.2550 0.0-0.9 % Normal IM GRAN % 0.200 Result Comment: IG% - Immature Granulocytes (promyelocytes, myelocytes and metamyelocytes) > 1% indicates that a LEFT SHIFT is Present. LAB L100.2620 2.0-7.7 X10 3/uL Normal Absolute Neut 3.6 LAB L100.2720 0.83-4.51 X10 3/ul Normal Absolute Lymph 1.72 Performed By: #### L100.0100 #### [facility] [address] [place], [address] COMPREHENSIVE METABOLIC Collected: 10/17/2017 Status: F Source: [place] [facility] 2:44 PM [facility] REPOSITORY TYPE CODE TESTS RESULT OUT OF RANGE REFERENCE UNITS LAB L501.0100 74-106 mg/dL High GLU 127 Result Comment: Fasting Glucose result greater than or equal to 126 mg/dL suggests DIABETES MELLITUS per A.D.A. criteria. Please note revised GLUCOSE reference range effective 2017. LAB L501.1000 7-18 mg/dL Normal BUN 15 LAB L501.1100 0.70-1.30 mg/dL Normal CREAT,SERUM 0.82 Result Comment: The validity of the calculated GFR AND GFRAA in patients over 70 years has not been determined. Clinical correlation is essential. LAB L501.1110 >60 mL/min Normal EST GFR 104 Result Comment: Non- GFR Calc LAB L501.1115 >60 mL/min Normal EST GFR - AA 126 Result Comment: GFR Calc LAB L501.1300 10-20 RATIO Normal BUN/CRE 18.2 LAB L501.1500 6.4-8.2 g/dL T Normal PROT 7.4 LAB L501.1800 3.2-5.0 g/dL Normal ALB 3.5 LAB L501.1950 2.2-4.2 g/dL Normal GLOB 3.9 LAB L501.2000 0.9-2.4 RATIO Normal A/G 0.9 LAB L501.2200 8.5-10.1 mg/dL CA Normal 8.7 LAB L501.4100 15-37 U/L Low AST 14 Result Comment: Slight Hemolysis, Result may be falsely increased. LAB L501.4305 45-117 U/L Normal ALK P 57 LAB L501.4405 16-61 U/L Normal ALT 32 Result Comment: Please note revised ALT reference range effective 2017. LAB L501.4600 0.20-1.00 mg/dL Normal T BILI 0.40 LAB L501.5300 136-145 mmol/L Normal NA 139 LAB L501.5600 3.5-5.1 mmol/L Normal K 3.9 Result Comment: Slight Hemolysis, Result may be falsely increased. LAB L501.5900 98-107 mmol/L Normal CL 104 LAB L501.6100 21.0-32.0 mmol/L Normal CO2 26.0 LAB L501.6200 5-15 Normal 9 GAP Performed By: #### L500.4050, L501.9520 #### [facility] [address] [place], [address] THYROID STIM HORMONE Collected: 10/17/2017 Status: F Source: [place] (TSH) 2:44 PM [facility] REPOSITORY TYPE CODE TESTS RESULT OUT OF RANGE REFERENCE UNITS LAB L501.9520 0.358-3.74 uIU/mL Normal TSH 1.50 Performed By: #### L500.4050, L501.9520 #### [facility] [address] [place], [address] ALLERGIES ALLERGIES DATE TYPE / CODE NAME / CODE REACTION SEVERITY SOURCE 08/06/2018 Drug No Known Unknown [facility] Allergy/4160 Allergies/F00 [facility] [address](SNOMED 4707488(RXNOR Repository CT) M) ENCOUNTERS ENCOUNTERS ADMIT/DISCHARGE ACCOUNT ADMITTING ENCOUNTER LOCATION SOURCE NUMBER CLASS 09/03/2018 [id number] Ambulatory BMSBuilding:B [place] 4 [place] Repository 09/03/2018 [id number] Ambulatory [place] 7 [place] ing: Repository 08/14/2018 [id number] Ambulatory BMSBuilding:B [place] 5 [place].CF.[facility] Repository 08/13/2018/ [id number] Ambulatory [place] 8 0 [place] ing:WC Repository 08/08/2018 [id number] Ambulatory [place] 6 [place] ing:LABSPEC Repository 08/06/2018/ [id number] Emergency [place] 8 1 [place] ing:ED Repository 07/22/2018 [id number] Ambulatory [place] 5 [place] ing:POLAB3 Repository 04/17/2018 [id number] Ambulatory [place] 1 [place] ing:POLAB3 Repository 12/27/2017 [id number] Ambulatory [place] 7 [place] ing:POLAB3 Repository 10/17/2017 [id number] Ambulatory [place] 7 [place] ing:POLAB3 Repository PAYERS PAYERS ENCOUNTER GUARANTOR PAYER SUBSCRIBER SOURCE 09/03/2018 ROBIN[facility] T SH[place] Primary ROBINSON T SHINE [place] Jr.1220 POINT OF Insurance:MEDICARE Jr.: Community [place], PART A [address] [address]Hey: Number: Repository [id number] () Date:2018-08-12 09/03/2018 Secondary ROBINSON T SHINE [place] Insurance:MEDICAIDPol Jr.: Community icy Number: [address] [place] [address] [id number] Repository Date:2018-08-12 09/03/2018 Tertiary NOT GIVENUNK [place] Insurance:SELF PAY [facility] Number: Effective Repository Date:2018-09-03 09/03/2018 ROBINSON T SHINE Primary ROBINSON T SHINE [place] Jr.1220 POINT OF Insurance:MEDICARE Jr.: Community [place], PART A [address] [address]Nod: Number: Repository [id number] () Date:2018-08-12 09/03/2018 Secondary ROBINSON T SHINE [place] Insurance:MEDICAIDPol Jr.: [facility] icy Number: [address] [place] [address] [id number] Repository Date:2018-08-12 09/03/2018 Tertiary NOT GIVENUNK [place] Insurance:SELF PAY [facility] Number: Effective Repository Date:2018-08-27 08/14/2018 ROBINSON T SHINE Primary ROBINSON T SHINE [place] Jr.1220 POINT OF Insurance:MEDICARE Jr.: Community [place], PART A [facility] [id number] [address]Dze: Number: Repository [id number] () Date:2018-08-12 08/14/2018 Secondary ROBINSON T SHINE [place] Insurance:MEDICAIDPol Jr.: [facility] icy Number: [id number] [place] [address] [id number] Repository Date:2018-08-12 08/14/2018 Tertiary NOT GIVENUNK [place] Insurance:SELF PAY [facility] Number: Effective Repository Date:2018-08-14 08/13/2018 ROBINSON T SHINE Primary ROBINSON T SHINE [place] Jr.1220 POINT OF Insurance:MEDICARE Jr.: Community [facility]IEW [facility], PART A [address] [address]Zhc: Number: Repository [id number] () Date:2018-08-12 08/13/2018 Secondary ROBINSON T SHINE [place] Insurance:MEDICAIDPol Jr.: [facility] icy Number: [address] [place] [address] [id number] Repository Date:2018-08-12 08/13/2018 Tertiary NOT GIVENUNK [place] Insurance:SELF PAY [facility] Number: Effective Repository Date:2018-08-12 08/08/2018 ROBINSON T SHINE Primary ROBINSON T SHINE [place] Jr.1220 POINT OF Insurance:MEDICARE Jr.: Community VIEW [facility], PART A [address] [address]Dnh: Number: Repository [id number] () Date:2018-08-08 08/08/2018 Secondary ROBINSON T SHINE [place] Insurance:MEDICAIDPol Jr.: [facility] icy Number: [address] [place] [address] [id number] Repository Date:2018-08-08 08/08/2018 Tertiary NOT GIVENUNK [place] Insurance:SELF PAY [facility] Number: Effective Repository Date:2018-08-08 08/06/2018 ROBINSON T SHINE Primary ROBINSON T SHINE [place] Jr.1220 POINT OF Insurance:MEDICARE Jr.: Community [facility] [id number] [address]Erc: Number: Repository [id number] (HP) Date:2018-08-06 08/06/2018 Secondary ROBINSON T SHINE [place] Insurance:MEDICAIDPol Jr.: [facility] icy Number: [id number] [id number] Repository Date:2018-08-06 08/06/2018 Tertiary NOT GIVENUNK [place] Insurance:SELF PAY [facility] Number: Effective Repository Date:2018-08-06 07/22/2018 ROBINSON T SHINE Primary ROBINSON T SHINE [place] Jr.[address] [place] Insurance:MEDICARE Jr.: Community [address] [place], PART A [facility] [id number] [address]Pyf: Number: Repository [id number] (HP) Date:2018-07-22 07/22/2018 Secondary ROBINSON T SHINE [place] Insurance:MEDICAIDPol Jr.: [facility] icy Number: [id number] [place] [address] [id number] Repository Date:2018-07-22 07/22/2018 Tertiary NOT GIVENUNK [place] Insurance:SELF PAY [facility] Number: Effective Repository Date:2018-07-22 04/17/2018 ROBINSON T SHINE Primary ROBINSON T SHINE [place] Jr.[address] [place] Insurance:MEDICARE Jr.: [facility] [address] [place], PART A [facility] [id number] [address]Yma: Number: Repository [id number] (HP) Date:2018-04-17 04/17/2018 Secondary ROBINSON T SHINE [place] Insurance:MEDICAIDPol Jr.: [facility] icy Number: [id number] [place] [address] [id number] Repository Date:2018-04-17 04/17/2018 Tertiary NOT GIVENUNK [place] Insurance:SELF PAY [facility] Number: Effective Repository Date:2018-04-17 12/27/2017 ROBINSON T SHINE Primary ROBINSON T SHINE [place] Jr.[address] [place] Insurance:MEDICARE Jr.: Community [address] [place], PART A [facility] [id number] [address]Gpb: Number: Repository [id number] () Date:2017-12-27 12/27/2017 Secondary ROBINSON T SHINE [place] Insurance:MEDICAIDPol Jr.: [facility] icy Number: [id number] [id number] Repository Date:2017-12-27 12/27/2017 Tertiary NOT GIVENUNK [place] Insurance:SELF PAY [facility] Number: Effective Repository Date:2017-12-27 10/17/2017 ROBINSON T SHINE Primary ROBINSON T SHINE [place] Jr.[address] [place] Insurance:MEDICARE Jr.: [facility] [address] [place], PART A [facility] [id number] [address]Nng: Number: Repository [id number] () Date:2017-10-17 10/17/2017 Secondary ROBINSON T SHINE [place] Insurance:MEDICAIDPol Jr.: [facility] icy Number: [id number] [id number] Repository Date:2017-10-17 10/17/2017 Tertiary NOT GIVENUNK [place] Insurance:SELF PAY [facility] Number: Effective Repository Date:2017-10-17
== END 2018-08-06 18:45 | disposition home or self-care (01) ==
PROVIDERS: Emergency Provider Emergency Medicine; Family Provider Family Medicine Geriatric Medicine; PCP Family Medicine Geriatric Medicine
DX: L03.116 Cellulitis of left lower limb (principal); E11.9 Type 2 diabetes mellitus without complications; E78.00 Pure hypercholesterolemia, unspecified; Z79.01 Long term (current) use of anticoagulants
CPT/HCPCS: 99282

== ENCOUNTER → 2018-08-08 19:18 | Outpatient (CLI) | payer MEDICARE, MEDICAID, SELFPAY ==
[2018-08-06 17:40] VITALS: BMI 34.7
[2018-08-09 13:57] LABS: M R Staph aureus DNA By PCR POSITIVE (Negative); Probe Check PASS; Staph aureus DNA By PCR POSITIVE (Negative)
--- OUTSIDE RECORDS SUMMARY | 2018-09-24 15:11 | XMS RPT_ITS ---
:1965 Author Organization OHIP Support Name Relationship Address Phone D Unavailable Unavailable Unavailable ALDO, MALLORY Unavailable Unavailable + NURSE, DENIS Unavailable [address] + [place] [address] D Unavailable Unavailable Unavailable ALDO, MALLORY Unavailable Unavailable + NURSE, DENIS Unavailable [address] + [place] [address] D Unavailable Unavailable Unavailable ALDO, MALLORY Unavailable Unavailable + NURSE, DENIS Unavailable [address] + [place] [address] D Unavailable Unavailable Unavailable ALDO, MALLORY Unavailable Unavailable + NURSE, DENIS Unavailable [address] + [place] [address] D Unavailable Unavailable Unavailable ALDO, MALLORY Unavailable Unavailable + NURSE, DENIS Unavailable [address] + [place] [address] D Unavailable Unavailable Unavailable ALDO, MALLORY Unavailable Unavailable + NURSE, DENIS Unavailable [address] + [place] [address] D Unavailable Unavailable Unavailable APULA JOVANNY Unavailable [address] + [place] [address] NURSE, DENIS Unavailable [address] + [place] [address] D Unavailable Unavailable Unavailable MITCHELL, JOVANNY Unavailable [address] + [place] [address] ANNABEL MERAZ Unavailable [address] + [place] [address] D Unavailable Unavailable Unavailable JOVANNY MITCHELL Unavailable [address] + [place] [address] ANNABEL MERAZ Unavailable [address] + [place] [address] D Unavailable Unavailable Unavailable PAULA JOVANNY Unavailable [address] + [place] [address] ANNABEL MERAZ Unavailable [address] + [place] [address] Care Team Providers Name Role Phone John, Cali Chi Primary Care Unavailable Brent Pardo Attending Unavailable John, Cali Chi Attending Unavailable John, Cali Chi Primary Care Unavailable Anival, Becky E Attending Unavailable John, Cali Chi Primary Care Unavailable Anival, Becky E Attending Unavailable John, Cali Chi Primary Care Unavailable Anival, Becky E Consulting Unavailable Vince Rodas Referring Unavailable Anival, Becky E Attending Unavailable John, Cali Chi Primary Care Unavailable Anival, Becky E Attending Unavailable John, Cali Chi Primary Care Unavailable Anival, Becky E Consulting Unavailable John, Cali Chi Attending Unavailable John, Cali Chi Primary Care Unavailable John, Cali Chi Attending Unavailable John, Cali Chi Primary Care Unavailable John, Cali Chi Attending Unavailable John, Cali Chi Primary Care Unavailable John, Cali Chi Attending Unavailable John, Cali Chi Primary Care Unavailable John, Cali Chi Referring Unavailable PROBLEMS PROBLEMS DATE TYPE CONDITION / CODE ATTENDING STATUS SOURCE 08/08/2018 Unknown L03.119 - Cellulitis John, Cali Chi Active [place] of unspecified part Community of limb / [...] - Vitamin D John, Cali Chi Active [place] deficiency, Community unspecified / Hospital E55.9(ICD-10) Repository PROCEDURES PROCEDURES No Procedure Records FoundRESULTS RESULTS WOUND CTR HISTORY Observed: 08/14/2018 Status: F Source: [place] AND PHYSICAL 9:41 PM [facility] REPOSITORY [facility] Wound [facility]aling Center [address] [place] [address] Wound Ctr History AND Physical 08/14/18 0839 MR#: [id number] Acct: [id number] Name: ROBINSON SHINE Jr. Rep #: [id number] : 1965 53 From: Becky Florian ENGINE WATCHMANAyeshaC PCP: John UNDERWOOD,Cali Hadley Status: REG RCR [...] impairment who is a resident of a senior living. He presents to the [facility] accompanied by an aide. [...] Date Recorded By Document 08/13/18 15:53 BON [id number] 08/13/18 16:05 BON Musculoskeletal: No Tenderness to [...] weeks due to the holidays). Patient and care specialist instructed to notify the wound center before next appointment if develop any issues with his left lower leg. Code Visit Office Visits / Consults: 21900 OV L3 Est 08/14/183 <Electronically signed by Becky POLO> Date Becky POLO CC: Signed Observed: 08/08/2018 Status: F Source: [place] CULTURE, DEEP WOUND 4:15 PM [facility] REPOSITORY IN BAG/CANCELED BY 2ND SHIFT/PHLEB FIXED 1ST SHIFT . Gram Stain Gram Stain Rare Red Blood Cells 2+ Gram positive cocci in clusters Wound Culture Copy of report sent to Infection Control Printer MS#[id number] 08/11/18 0724 [place]. RESULTS CALLED TO NURSE LINE 08/11/18 8428 Prachi Han. ORGANISM 1: Meth. resistant Staph. [...] 1 S (NF) indicates non-formulary drug at [facility]. Approval by Infectious Disease Specialist required before non-formulary drugs may be ordered and/or dispensed. * CLSI guidelines does not recommend testing of cephalosporins. This interpretation is deduced from Beta-lactam/penicillin results. Cult, Anaerobic Test not performed Performed By: #### M100.1500 #### [facility] [address] [facility] [place], [address] MRSA WOUND DNA BY Collected: 08/08/2018 Status: F Source: [place] PCR 4:15 PM [facility] Order Comment: IN BAG/CANCELED BY 2ND SHIFT/PHLEB FIXED 1ST SHIFT . RESULTS CALLED TO CHRISSIE Ray 08/09/18 1358 [place]. REPORT READ BACK BY CHRISSIE Ray. Specimen Source? LEG TYPE CODE TESTS RESULT OUT OF REFERENCE UNITS RANGE LAB L8200.1100 Negative High MRSA POSITIVE RESULT LAB L8200.1150 Negative High SA RESULT POSITIVE Performed By: #### L8200.1075 #### [facility] [address] [facility] [place], [address] EMERGENCY DEPARTMENT Observed: 08/07/2018 Status: F Source: [place] SUMMARY 12:35 AM [facility] Medical Records Department [address] [facility] [place] [address] Emergency Department Summary 08/06/18 1816 MR#: [id number] Acct: [id number] Name: ROBINSON SHINE JrRenaldo Rep #: [id number] : 1965 53 From: Brent Pardo MD PCP: John UNDERWOOD,Cali Hadley Status: DEP ER - ER Visit Summary Date of Service: 08/06/18 Chief Complaint: Rash History of Present Illness: The patient is a 53 M presenting for evaluation secondary to a skin rash. Patient lives in a senior living has an underlying history of seizures diabetes. [...] leg cellulitis This note was generated with Al [employer] dictation software. It may contain incorrect words, [...] problems, contact your Primary Care Provider. Call [facility] ([phone]) or report to the closest Emergency Room. Call 911 if necessary. 08/07/18 0035 <Electronically signed by Brent Pardo MD> Date Brent Pardo MD Cosigner Signature (If Indicated): Date CC: Cali Lopez MD ABD INC DECUB Observed: 07/22/2018 Status: F Source: [place] AND/OR ERECT 12:51 PM [facility] Imaging Services [address] [place] [address] Abd Inc Decub and/or Erect MR#: [id number] Acct: [id number] Name: ROBINSON SHINE Jr. Rep #: [id number] : 1965 M 53 From: Rafiq Sam MD PCP: Cali Lopez MD, Chi Status: REG CLI Study: Abd Inc Decub and/or Erect Date of Exam: 07/22/18 Exam# [id number] Ordering Dr: Cali Lopez MD STUDY: X-RAY [...] Rafiq Sam MD at 13:38 EST Tel [phone], Service support , CC: Cali Lopez MD Logging Superintendent: Signed CBC W/DIFF, AUTOMATED Collected: 07/22/2018 Status: F Source: [place] 12:12 PM [facility] TYPE CODE TESTS RESULT OUT OF [...] Lymph 1.84 Performed By: #### L100.0100 #### [facility] [address] [place], [place], [address] COMPREHENSIVE METABOLIC Collected: 07/22/2018 Status: F Source: [place] DAVILA 12:12 PM [facility] TYPE CODE TESTS RESULT OUT OF [...] 9 Performed By: #### L500.4050, L501.9520 #### [facility] [place], [address] THYROID STIM HORMONE Collected: 07/22/2018 Status: F Source: [place] (TSH) 12:12 PM [facility] TYPE CODE TESTS RESULT OUT OF RANGE REFERENCE UNITS LAB L501.9520 0.358-3.74 uIU/mL Normal TSH 2.37 Performed By: #### L500.4050, L501.9520 #### [facility] [address] [facility] [place], [place], [address] CBC W/DIFF, AUTOMATED Collected: 04/17/2018 Status: F Source: [place] 2:29 PM [facility] TYPE CODE TESTS RESULT OUT OF [...] Lymph 1.75 Performed By: #### L100.0100 #### [facility] [address] [facility] [place], [address] COMPREHENSIVE METABOLIC Collected: 04/17/2018 Status: F Source: [place] DAVILA 2:29 PM [facility] TYPE CODE TESTS RESULT OUT OF [...] 13 Performed By: #### L500.4050, L501.9520 #### [facility] [address] [facility] [address] [place], [place], [address] THYROID STIM HORMONE Collected: 04/17/2018 Status: F Source: [place] (TSH) 2:29 PM [facility] TYPE CODE TESTS RESULT OUT OF RANGE REFERENCE UNITS LAB L501.9520 0.358-3.74 uIU/mL Normal TSH 2.22 Performed By: #### L500.4050, L501.9520 #### [facility] [address] [facility] [address] [place], [place], [address] HEPATITIS C ANTIBODIES Collected: 04/17/2018 Status: F Source: [place] 2:29 PM [facility] TYPE CODE TESTS RESULT OUT OF RANGE REFERENCE UNITS LAB L3100.0650 0.0-0.9 s/co ratio Normal HEP C AB 0.2 Result Comment: Negative: < 0.8 Indeterminate: 0.8 - 0.9 Positive: > 0.9 The CDC recommends that a positive HCV antibody result be followed up with a HCV Nucleic Acid Amplification test (002477). Performed at: - [facility] [id number] Academic Tutor: Octavio Reaves PhD, Phone: [phone] Performed By: #### L3100.0625 #### [facility] (refer to report for specific site) refer to report for address and phone number CBC W/DIFF, AUTOMATED Collected: 12/27/2017 Status: F Source: [place] 9:40 AM [facility] TYPE CODE TESTS RESULT OUT OF [...] Lymph 1.61 Performed By: #### L100.0100 #### [facility] [address] [place], [place], [address] COMPREHENSIVE METABOLIC Collected: 12/27/2017 Status: F Source: [facility] 9:40 AM [facility] TYPE CODE TESTS RESULT OUT OF [...] 11 Performed By: #### L500.4050, L501.9520 #### [facility] [address] [facility] [place], [place], [address] THYROID STIM HORMONE Collected: 12/27/2017 Status: F Source: [place] (TSH) 9:40 AM [facility] TYPE CODE TESTS RESULT OUT OF RANGE REFERENCE UNITS LAB L501.9520 0.358-3.74 uIU/mL Normal TSH 1.34 Performed By: #### L500.4050, L501.9520 #### [facility] [address] [facility] [place], [place], [address] VITAMIN D,25 HYDROXY Collected: 12/27/2017 Status: F Source: [place] 9:40 AM [facility] TYPE CODE TESTS RESULT OUT OF REFERENCE UNITS RANGE LAB L506.1000 29.95-100.01 ng/mL Low Vitamin D 15.7 25-OH Result Comment: Vitamin D 25(OH) Status Range Deficiency <20 ng/mL (50nmol/L) Insuffciency 20 - 30 ng/mL (50 - 75 nmol/L) Sufficiency 30 - 100 ng/mL (75 - 250 nmol/L) Toxicity >100 ng/mL (>250 nmol/L) Performed By: #### L506.1000 #### [facility] [place], [address] CBC W/DIFF, AUTOMATED Collected: 10/17/2017 Status: F Source: [place] 2:44 PM [facility] TYPE CODE TESTS RESULT OUT OF [...] Lymph 1.72 Performed By: #### L100.0100 #### [facility] [address] [place], [address] COMPREHENSIVE METABOLIC Collected: 10/17/2017 Status: F Source: [place] [facility] 2:44 PM [facility] TYPE CODE TESTS RESULT OUT OF [...] GAP Performed By: #### L500.4050, L501.9520 #### [facility] [address] [place], [address] THYROID STIM HORMONE Collected: 10/17/2017 Status: F Source: [place] (TSH) 2:44 PM [facility] TYPE CODE TESTS RESULT OUT OF RANGE REFERENCE UNITS LAB L501.9520 0.358-3.74 uIU/mL Normal TSH 1.50 Performed By: #### L500.4050, L501.9520 #### [facility] [address] [place], [address] ALLERGIES ALLERGIES DATE TYPE / CODE NAME / CODE REACTION SEVERITY SOURCE 08/06/2018 Drug No Known Unknown [facility] Allergy/4160 Allergies/F00 [facility] 86609(SNOMED [id number](RXNOR Repository CT) M) ENCOUNTERS ENCOUNTERS ADMIT/DISCHARGE ACCOUNT ADMITTING ENCOUNTER LOCATION SOURCE NUMBER CLASS 09/03/2018 [id number] Ambulatory BMSBuilding:B [place] 4 [place] Repository 09/03/2018 [id number] Ambulatory [place] [facility] ing: Repository 08/14/2018 [id number] Ambulatory BMSBuilding:B [place] 5 [place].CF.[facility] Repository 08/13/2018/ [id number] Ambulatory [place] 0 [facility] ing:WC Repository 08/08/2018 [id number] Ambulatory [place] 6 [facility] ing:[facility] Repository 08/06/2018/ [id number] Emergency [place] 1 [facility] ing:ED Repository 07/22/2018 [id number] Ambulatory [place] 5 [facility] ing:POLAB3 Repository 04/17/2018 [id number] Ambulatory [place] 1 [facility] ing:POLAB3 Repository 12/27/2017 [id number] Ambulatory [place] 7 [facility] ing:POLAB3 Repository 10/17/2017 [id number] Ambulatory [place] 7 [facility] ing:POLAB3 Repository PAYERS PAYERS ENCOUNTER GUARANTOR PAYER SUBSCRIBER SOURCE 09/03/2018 ROBINSON T SHINE Primary ROBINSON T SHINE [place] Jr.1220 POINT OF Insurance:MEDICARE Jr.: Community [place], PART A [address] [address]Czu: Number: Repository [id number] () Date:2018-08-12 09/03/2018 Secondary ROBINSON T SHINE [place] Insurance:MEDICAIDPol Jr.: Community icy Number: [address] [place] [address] [id number] Repository Date:2018-08-12 09/03/2018 Tertiary NOT GIVENUNK [place] Insurance:SELF PAY [facility] Number: Effective Repository Date:2018-09-03 09/03/2018 ROBINSON T SHINE Primary ROBINSON T SHINE [place] Jr.1220 POINT OF Insurance:MEDICARE Jr.: Community [place], PART A [address] [address]Ebd: Number: Repository [id number] () Date:2018-08-12 09/03/2018 Secondary ROBINSON T SHINE [place] Insurance:MEDICAIDPol Jr.: [facility] icy Number: [address] [place] [address] [id number] Repository Date:2018-08-12 09/03/2018 Tertiary NOT GIVENUNK [place] Insurance:SELF PAY [facility] Number: Effective Repository Date:2018-08-27 08/14/2018 ROBINSON T SHINE Primary ROBINSON T SHINE [place] Jr.1220 POINT OF Insurance:MEDICARE Jr.: Community [place], [facility] [id number] [address]Ydg: Number: Repository [id number] () Date:2018-08-12 08/14/2018 Secondary ROBINSON T SHINE [place] Insurance:MEDICAIDPol Jr.: [facility] icy Number: [id number] [place] [address] [id number] Repository Date:2018-08-12 08/14/2018 Tertiary NOT GIVENUNK [place] Insurance:SELF PAY [facility] Number: Effective Repository Date:2018-08-14 08/13/2018 ROBINSON T SHINE Primary ROBINSON T SHINE [place] Jr.1220 POINT OF Insurance:MEDICARE Jr.: Community [facility], PART A [address] [address]Yym: Number: Repository [id number] () Date:2018-08-12 08/13/2018 Secondary ROBINSON T SHINE [place] Insurance:MEDICAIDPol Jr.: [facility] icy Number: [address] [place] [address] [id number] Repository Date:2018-08-12 08/13/2018 Tertiary NOT GIVENUNK [place] Insurance:SELF PAY [facility] Number: Effective Repository Date:2018-08-12 08/08/2018 ROBINSON T SHINE Primary ROBINSON T SHINE [place] Jr.1220 POINT OF Insurance:MEDICARE Jr.: Community [facility], PART A [address] [address]Oru: Number: Repository [id number] () Date:2018-08-08 08/08/2018 Secondary ROBINSON T SHINE [place] Insurance:MEDICAIDPol Jr.: [facility] icy Number: [address] [place] [address] [id number] Repository Date:2018-08-08 08/08/2018 Tertiary NOT GIVENUNK [place] Insurance:SELF PAY [facility] Number: Effective Repository Date:2018-08-08 08/06/2018 ROBINSON T SHINE Primary ROBINSON T SHINE [place] Jr.1220 POINT OF Insurance:MEDICARE Jr.: [facility] [id number] [address]Iay: Number: Repository [id number] (HP) Date:2018-08-06 08/06/2018 Secondary ROBINSON T SHINE [place] Insurance:MEDICAIDPol Jr.: [facility] icy Number: [id number] [id number] Repository Date:2018-08-06 08/06/2018 Tertiary NOT GIVENUNK [place] Insurance:SELF PAY [facility] Number: Effective Repository Date:2018-08-06 07/22/2018 ROBINSON T SHINE Primary ROBINSON T SHINE [place] Jr.[address] Insurance:MEDICARE Jr.: Community [address], PART A [facility] [id number] [address]Kyj: Number: Repository [id number] (HP) Date:2018-07-22 07/22/2018 Secondary ROBINSON T SHINE [place] Insurance:MEDICAIDPol Jr.: [facility] icy Number: [id number] [place] [address] [id number] Repository Date:2018-07-22 07/22/2018 Tertiary NOT GIVENUNK [place] Insurance:SELF PAY [facility] Number: Effective Repository Date:2018-07-22 04/17/2018 ROBINSON T SHINE Primary ROBINSON T SHINE [place] Jr.[address] Insurance:MEDICARE Jr.: [facility] [address] [place], PART A [facility] [id number] [address]Dxu: Number: Repository [id number] (HP) Date:2018-04-17 04/17/2018 Secondary ROBINSON T SHINE [place] Insurance:MEDICAIDPol Jr.: [facility] icy Number: [id number] [place] [address] [id number] Repository Date:2018-04-17 04/17/2018 Tertiary NOT GIVENUNK [place] Insurance:SELF PAY [facility] Number: Effective Repository Date:2018-04-17 12/27/2017 ROBINSON T SHINE Primary ROBINSON T SHINE [place] Jr.[address] Insurance:MEDICARE Jr.: Community [address] [place], PART A [facility] [id number] [address]Sfd: Number: Repository [id number] () Date:2017-12-27 12/27/2017 Secondary ROBINSON T SHINE [place] Insurance:MEDICAIDPol Jr.: [facility] icy Number: [id number] [id number] Repository Date:2017-12-27 12/27/2017 Tertiary NOT GIVENUNK [place] Insurance:SELF PAY [facility] Number: Effective Repository Date:2017-12-27 10/17/2017 ROBINSON T SHINE Primary ROBINSON T SHINE [place] Jr.[address] [place] Insurance:MEDICARE Jr.: [facility] [address] [place], PART A [facility] [id number] [address]Lmr: Number: Repository [id number] () Date:2017-10-17 10/17/2017 Secondary ROBINSON T SHINE [place] Insurance:MEDICAIDPol Jr.: [facility] icy Number: [id number] [id number] Repository Date:2017-10-17 10/17/2017 Tertiary NOT GIVENUNK [place] Insurance:SELF PAY [facility] Number: Effective Repository Date:2017-10-17
== END ==
PROVIDERS: Family Provider Family Medicine Geriatric Medicine; PCP Family Medicine Geriatric Medicine; Visit Provider Family Medicine Geriatric Medicine
DX: L03.119 Cellulitis of unspecified part of limb (principal); B95.62 Methicillin resistant Staphylococcus aureus infection as the cause of diseases classified elsewhere
CPT/HCPCS: 87070; 87077; 87186; 87205; 87640

== ENCOUNTER 2018-08-13 15:10 | Outpatient (RCR) | payer MEDICARE, MEDICAID, SELFPAY ==
[2018-08-13 15:53] VITALS: BP 132/79; PULSE 72; RESP 18; TEMP 36.4; BMI 34.7
--- NOTE | 2018-08-14 08:39 | PCM.WC.HP ---
(1) Contusion of left lower leg Status: Acute Current Visit: Yes Code(s): S80.12XA - Contusion of left lower leg, initial encounter (2) Cellulitis of left lower leg Status: Acute Current Visit: Yes Code(s): L03.116 - Cellulitis of left lower limb (3) Chronic anticoagulation Status: Chronic Current Visit: Yes Code(s): Z79.01 - terminal make up operator (current) use of anticoagulants (4) Diabetes mellitus, type 2 Status: Chronic Current Visit: Yes Code(s): E11.9 - Type 2 diabetes mellitus without complications History of Present Illness Date of Service: 08/13/18 Chief Complaint: Left lower anterior leg redness and swelling. History of Wound: This is a 53-year-old white male with cognitive impairment who is a resident of a alf. He presents to the [facility] accompanied by an aide. He was referred by his PCP, Dr. Lopez. On 08/06/18 he was seen in the ED for left lower anterior extremity cellulitis and he had two small open areas. He was treated with Keflex. He followed up with his PCP a couple days later and Dr. Lopez obtained a wound culture that showed MRSA. The patient was started on Sivextro daily along with the Keflex. The patient was then referred to the wound healing clinic for further wound management. His left lower extremity does not have any opened areas at this time, but he does have significant redness and +1-+2 bilateral lower extremity edema. Past Medical History Past Medical History: Chronic Problems Chronic anticoagulation (Chronic) Nondisplaced fracture of right humerus (Chronic) Seizure disorder (Chronic) Depression (Chronic) Diabetes mellitus, type 2 (Chronic) Hyperlipidemia (Chronic) Mental retardation (Chronic) History of syncope (Chronic) Tobacco user (Chronic) Surgical History: - - It was reported that the patient has history of gallbladder surgery. Allergies/Adverse Reactions: Allergies No Known Allergies Allergy (Verified 08/06/18 17:39) Home Medications: Ambulatory Orders Medication Instructions Recorded Metformin HCl [Metformin HCl ER] 500 mg PO BID 09/27/16 Cephalexin [Keflex] 500 mg PO Q6 #40 cap 08/06/18 Empagliflozin [Jardiance] 25 mg PO DAILY 08/06/18 Warfarin [Coumadin] 4 mg PO DAILY@1700 08/06/18 Bupropion HCl [Bupropion HCl Sr] 150 mg PO BID 08/13/18 Clotrimazole/Betamethasone 1 applic TOPICAL BID PRN 08/13/18 [Lotrisone] Ergocalciferol [Vitamin D] 1 unit PO QMONTH 08/13/18 Nicotine [Nicotine Patch] 21 mg TD DAILY 08/13/18 Polyethylene Glycol 3350 [Miralax] 17 gm PO DAILY 08/13/18 - Family History Maternal - - The patient's mother suffered from diabetes mellitus. She at the age of 54. Paternal - - The patient's father from a pill overdose, age unknown. Smoking Status: Former smoker Review of Systems Constitutional: Denies: Chills, Fever, Weight Change Eyes: Denies: Pain, Vision Change HEENT: Denies: Difficulty Hearing, Difficulty Swallowing, Sinus Congestion Cardiovascular: Reports: Edema. Denies: Chest Pain, Palpitations Respiratory: Denies: Cough, Shortness of Breath Gastrointestinal: Denies: Diarrhea, Nausea, Vomiting Musculoskeletal: Reports: Leg Pain - Left lower extremity Skin: Reports: Dryness - Has a history of seborrheic dermatitis of scalp and face Psychiatric: Denies: Homicidal Ideations, Suicidal Ideations - Physical Exam Vital Signs Temp Pulse Resp BP 97.5 F L 72 18 132/79 H 08/13/18 15:53 08/13/18 15:53 08/13/18 15:53 08/13/18 15:53 General: Alert, Cooperative, No apparent distress HEENT: Atraumatic Lungs: Clear to auscultation, Normal air movement, No rhonchi Cardiovascular: Regular rate, Regular Rhythm Extremities: Edema - Bilateral lower extremity +1-+2 pitting edema Skin: Ulcer/ Wound - Left lower anterior leg with redness/bruising. No Visible open areas at this time, - - Has significant amount of dry/peeling facial skin Wound Measurements and Assessment WC - Nurse 1 - General Ulcer Measurement Start: 08/13/18 15:53 Freq: Status: Active Protocol: Activity Type Activity Date Activity User E-Sign Co-Sign Detail Recorded Client Recorded Date Recorded By Document 08/13/18 15:53 BON [id number] 08/13/18 16:05 BON 08/13/18 15:53 Wound Center Nurse 1 [Edema Assessment] -Lower Limb Edema Present Yes -Right Calf (cm) 36.5 -Right Ankle (cm) 22.5 -Left Calf (cm) 38.0 -Left Ankle (cm) 22.5 Musculoskeletal: No Tenderness to Palpation of Joints or Extremities Neurological: Neuro grossly intact Psych/Mental Status: Flat Affect Debridement Note No debridement was completed today Assessment/Plan Active Problems Contusion of left lower leg (Acute) Cellulitis of left lower leg (Acute) Chronic anticoagulation (Chronic) Diabetes mellitus, type 2 (Chronic) Assessment: 1. Contusion of left lower leg. 2. Cellulitis of left lower leg. 3. Chronic anticoagulation. 4. Diabetes mellitus, type 2 Plan: Left anterior lower extremity is bruised and inflammed. There is no opened area today. Wound cultures showed MRSA and he was diagnosed with cellulitis on 08/06/18. Patient will continue the Keflex and Sivextro as previously prescribed. We will apply double layer tubigrip to the left lower leg. Patient encouraged to elevate legs 30 minutes at least 3-4 times per day. He will follow up in 3 weeks for re-evaluation (follow up is 3 weeks due to the holidays). Patient and care assistant instructed to notify the wound center before next appointment if develop any issues with his left lower leg. Code Visit Office Visits / Consults: [id number] OV L3 Est
--- NOTE | 2018-08-14 08:42 | HP.PCM_ITS ---
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 History of Wound: This is a 53-year-old white male with cognitive impairment who is a resident of a [facility]. He presents to the [facility] accompanied by an aide. He was referred by his PCP, Dr. Lopez. On 08/06/18 he was seen in the ED for left lower anterior extremity cellulitis and he had two small open areas. He was treated with Keflex. He followed up with his PCP a couple days later and Dr. Lopez obtained a wound culture that showed MRSA. The patient was started on Sivextro daily along with the Keflex. The patient was then referred to the wound healing clinic for further wound management. His left lower extremity does not have any opened areas at this time, but he does have significant redness and +1-+2 bilateral lower extremity edema. Past Medical History Past Medical History: Chronic Problems Chronic anticoagulation (Chronic) Nondisplaced fracture of right humerus (Chronic) Seizure disorder (Chronic) Depression (Chronic) Diabetes mellitus, type 2 (Chronic) Hyperlipidemia (Chronic) Mental retardation (Chronic) History of syncope (Chronic) Tobacco user (Chronic) Surgical History: - - It was reported that the patient has history of gallbladder surgery. Allergies/Adverse Reactions: Allergies No Known Allergies Allergy (Verified 08/06/18 17:39) Home Medications: Ambulatory Orders Medication Instructions Recorded Metformin HCl [Metformin HCl ER] 500 mg PO BID 09/27/16 Cephalexin [Keflex] 500 mg PO Q6 #40 cap 08/06/18 Empagliflozin [Jardiance] 25 mg PO DAILY 08/06/18 Warfarin [Coumadin] 4 mg PO DAILY@1700 08/06/18 Bupropion HCl [Bupropion HCl Sr] 150 mg PO BID 08/13/18 Clotrimazole/Betamethasone 1 applic TOPICAL BID PRN 08/13/18 [Lotrisone] Ergocalciferol [Vitamin D] 1 unit PO QMONTH 08/13/18 Nicotine [Nicotine Patch] 21 mg TD DAILY 08/13/18 Polyethylene Glycol 3350 [Miralax] 17 gm PO DAILY 08/13/18 - Family History Maternal - - The patient's mother suffered from diabetes mellitus. She at the age of 54. Paternal - - The patient's father from a pill overdose, age unknown. Smoking Status: Former smoker Review of Systems Constitutional: Denies: Chills, Fever, Weight Change Eyes: Denies: Pain, Vision Change HEENT: Denies: Difficulty Hearing, Difficulty Swallowing, Sinus Congestion Cardiovascular: Reports: Edema. Denies: Chest Pain, Palpitations Respiratory: Denies: Cough, Shortness of Breath Gastrointestinal: Denies: Diarrhea, Nausea, Vomiting Musculoskeletal: Reports: Leg Pain - Left lower extremity Skin: Reports: Dryness - Has a history of seborrheic dermatitis of scalp and face Psychiatric: Denies: Homicidal Ideations, Suicidal Ideations - Physical Exam Vital Signs Temp Pulse Resp BP 97.5 F L 72 18 132/79 H 08/13/18 15:53 08/13/18 15:53 08/13/18 15:53 08/13/18 15:53 General: Alert, Cooperative, No apparent distress HEENT: Atraumatic Lungs: Clear to auscultation, Normal air movement, No rhonchi Cardiovascular: Regular rate, Regular Rhythm Extremities: Edema - Bilateral lower extremity +1-+2 pitting edema Skin: Ulcer/ Wound - Left lower anterior leg with redness/bruising. No Visible open areas at this time, - - Has significant amount of dry/peeling facial skin Wound Measurements and Assessment WC - Nurse 1 - General Ulcer Measurement Start: 08/13/18 15:53 Freq: Status: Active Protocol: Activity Type Activity Date Activity User E-Sign Co-Sign Detail Recorded Client Recorded Date Recorded By Document 08/13/18 15:53 BON [id number] 08/13/18 16:05 BON 08/13/18 15:53 Wound Center Nurse 1 [Edema Assessment] -Lower Limb Edema Present Yes -Right Calf (cm) 36.5 -Right Ankle (cm) 22.5 -Left Calf (cm) 38.0 -Left Ankle (cm) 22.5 Musculoskeletal: No Tenderness to Palpation of Joints or Extremities Neurological: Neuro grossly intact Psych/Mental Status: Flat Affect Debridement Note No debridement was completed today Assessment/Plan Active Problems Contusion of left lower leg (Acute) Cellulitis of left lower leg (Acute) Chronic anticoagulation (Chronic) Diabetes mellitus, type 2 (Chronic) Assessment: 1. Contusion of left lower leg. 2. Cellulitis of left lower leg. 3. Chronic anticoagulation. 4. Diabetes mellitus, type 2 Plan: Left anterior lower extremity is bruised and inflammed. There is no opened area today. Wound cultures showed MRSA and he was diagnosed with cellulitis on 08/06/18. Patient will continue the Keflex and Sivextro as previously prescribed. We will apply double layer tubigrip to the left lower leg. Patient encouraged to elevate legs 30 minutes at least 3-4 times per day. He will follow up in 3 weeks for re-evaluation (follow up is 3 weeks due to the holidays). Patient and ambulatory care coordinator instructed to notify the wound center before next appointment if develop any issues with his left lower leg. Code Visit Office Visits / Consults: [id number] OV L3 Est
--- OUTSIDE RECORDS SUMMARY | 2018-11-15 03:33 | XMS RPT_ITS ---
:1965 Author Organization OHIP Support Name Relationship Address Phone D Unavailable Unavailable Unavailable ALDO, MALLORY Unavailable Unavailable + NURSE, DENIS Unavailable [address] + [place] [address] D Unavailable Unavailable Unavailable ALDO, MALLORY Unavailable Unavailable + NURSE, DENIS Unavailable [address] + [place] [address] D Unavailable Unavailable Unavailable ALDO, MALLORY Unavailable Unavailable + NURSE, DENIS Unavailable [address] + [place] [address] D Unavailable Unavailable Unavailable ALDO, MALLORY Unavailable Unavailable + NURSE, DENIS Unavailable [address] + [place] [address] D Unavailable Unavailable Unavailable ALDO, MALLORY Unavailable Unavailable + NURSE, DENIS Unavailable [address] + [place] [address] D Unavailable Unavailable Unavailable ALDO, MALLORY Unavailable Unavailable + NURSE, DENIS Unavailable [address] + [place] [address] D Unavailable Unavailable Unavailable PAULA JOVANNY Unavailable [address] + [place] [address] NURSE, DENIS Unavailable [address] + [place] [address] D Unavailable Unavailable Unavailable MITCHELL, JOVANNY Unavailable [address] + [place] [address] ANNABEL MERAZ Unavailable [address] + [place] [address] D Unavailable Unavailable Unavailable JOVANNY MITCHELL Unavailable [address] + [place] [address] ANNABEL MERAZ Unavailable [address] + [place] [address] D Unavailable Unavailable Unavailable PAULA JOVANNY Unavailable [address] + [place] [address] ANNABEL MERAZ Unavailable [address] + [place] [address] Care Team Providers Name Role Phone John, [...] L03.119 - Cellulitis John, Cali Chi Active [place] of unspecified part Community of limb / [...] - Vitamin D John, Cali Chi Active [place] deficiency, Community unspecified / Hospital E55.9(ICD-10) Repository PROCEDURES PROCEDURES No Procedure Records FoundRESULTS RESULTS WOUND CTR HISTORY Observed: 08/14/2018 Status: F Source: [place] AND PHYSICAL 9:41 PM [facility] REPOSITORY [facility] [address] [place] [address] Wound Ctr History AND Physical 08/14/18 0839 MR#: [id number] Acct: [id number] Name: ROBINSON SHINE Jr. Rep #: [id number] : 1965 53 From: Becky Florian MAINTENANCE MECHANIC TELEPHONEAyeshaC PCP: John UNDERWOOD,Cali Hadley Status: REG RCR Y Location: (1) Contusion of left lower leg Status: Acute Current Visit: Yes Code(s): S80.12XA - Contusion of left lower leg, initial encounter (2) Cellulitis of left lower leg Status: Acute Current Visit: Yes Code(s): L03.116 - Cellulitis of left lower limb (3) Chronic anticoagulation Status: Chronic Current Visit: Yes Code(s): Z79.01 - care home (current) use of anticoagulants (4) Diabetes mellitus, type 2 Status: Chronic Current Visit: Yes Code(s): E11.9 - Type 2 diabetes mellitus without complications History of Present Illness Date of Service: 08/13/18 Chief Complaint: Left lower anterior leg redness and swelling. History of Wound: This is a 53-year-old white male with cognitive impairment who is a resident of a longterm. He presents to the [facility] accompanied by an aide. [...] Date Recorded By Document 08/13/18 15:53 BON [id number] 08/13/18 16:05 BON Musculoskeletal: No Tenderness to [...] weeks due to the holidays). Patient and critical care educator instructed to notify the wound center before next appointment if develop any issues with his left lower leg. Code Visit Office Visits / Consults: 94500 OV L3 Est 08/14/182 <Electronically signed by Becky POLO> Date Becky POLO CC: Signed Observed: 08/08/2018 Status: F Source: [place] CULTURE, DEEP WOUND 4:15 PM [facility] REPOSITORY IN BAG/CANCELED BY 2ND SHIFT/PHLEB FIXED 1ST SHIFT . Gram Stain Gram Stain Rare Red Blood Cells 2+ Gram positive cocci in clusters Wound Culture Copy of report sent to Infection Control Printer MS#[id number] 08/11/18 0724 [place]. RESULTS CALLED TO NURSE LINE 08/11/18 5201 Prachi Han. ORGANISM 1: Meth. resistant Staph. [...] 1 S (NF) indicates non-formulary drug at [facility]. Approval by Infectious Disease Specialist required before non-formulary drugs may be ordered and/or dispensed. * CLSI guidelines does not recommend testing of cephalosporins. This interpretation is deduced from Beta-lactam/penicillin results. Cult, Anaerobic Test not performed Performed By: #### M100.1500 #### [facility] [address] [facility] [place], [address] MRSA WOUND DNA BY Collected: 08/08/2018 Status: F Source: [place] PCR 4:15 PM [facility] REPOSITORY Order Comment: IN BAG/CANCELED BY 2ND SHIFT/PHLEB FIXED 1ST SHIFT . RESULTS CALLED TO CHRISSIE Ray 08/09/18 1358 [place]. REPORT READ BACK BY CHRISSIE Ray. Specimen Source? LEG TYPE CODE TESTS RESULT OUT OF REFERENCE UNITS RANGE LAB L8200.1100 Negative High MRSA POSITIVE RESULT LAB L8200.1150 Negative High SA RESULT POSITIVE Performed By: #### L8200.1075 #### [facility] [address] [facility] [place], [address] EMERGENCY DEPARTMENT Observed: 08/07/2018 Status: F Source: [place] SUMMARY 12:35 AM [facility] REPOSITORY [facility] Medical Records Department [address] [facility] [place] [address] Emergency Department Summary 08/06/18 1816 MR#: [id number] Acct: [id number] Name: ROBINSON SHINE JrRenaldo Rep #: [id number] : 1965 53 From: Brent Pardo MD PCP: John UNDERWOOD,Cali Hadley Status: DEP ER - ER Visit Summary Date of Service: 08/06/18 Chief Complaint: Rash History of Present Illness: The patient is a 53 M presenting for evaluation secondary to a skin rash. Patient lives in a longterm has an underlying history of seizures diabetes. [...] leg cellulitis This note was generated with [employer] dictation software. It may contain incorrect words, [...] problems, contact your Primary Care Provider. Call [facility] ([phone]) or report to the closest Emergency Room. Call 911 if necessary. 08/07/18 0035 <Electronically signed by Brent Pardo MD> Date Brent Pardo MD Cosigner Signature (If Indicated): Date CC: Cali Lopez MD ABD INC DECUB Observed: 07/22/2018 Status: F Source: [place] AND/OR ERECT 12:51 PM [facility] REPOSITORY [facility] Imaging Services [address] [address] Abd Inc Decub and/or Erect MR#: [id number] Acct: [id number] Name: ROBINSON SHINE Jr. Rep #: [id number] : 1965 M 53 From: Rafiq Sam MD PCP: Cali Lopez MD, Chi Status: REG CLI Study: Abd Inc Decub and/or Erect Date of Exam: 07/22/18 Exam# [id number] Ordering Dr: Cali Lopez MD STUDY: X-RAY [...] Rafiq Sam MD at 13:38 EST Tel [phone], Service support , CC: Cali Lopez MD Pipe Stripper: Signed CBC W/DIFF, AUTOMATED Collected: 07/22/2018 Status: F Source: [place] 12:12 PM [facility] REPOSITORY TYPE CODE TESTS RESULT OUT OF [...] Lymph 1.84 Performed By: #### L100.0100 #### [facility] [address] [place], [place], [address] COMPREHENSIVE METABOLIC Collected: 07/22/2018 Status: F Source: [place] DAVILA 12:12 PM [facility] REPOSITORY TYPE CODE TESTS RESULT OUT OF [...] 9 Performed By: #### L500.4050, L501.9520 #### [facility] [place], [address] THYROID STIM HORMONE Collected: 07/22/2018 Status: F Source: [place] (TSH) 12:12 PM [facility] REPOSITORY TYPE CODE TESTS RESULT OUT OF RANGE REFERENCE UNITS LAB L501.9520 0.358-3.74 uIU/mL Normal TSH 2.37 Performed By: #### L500.4050, L501.9520 #### [facility] [address] [facility] [place], [place], [address] CBC W/DIFF, AUTOMATED Collected: 04/17/2018 Status: F Source: [place] 2:29 PM [facility] REPOSITORY TYPE CODE TESTS RESULT OUT OF [...] Lymph 1.75 Performed By: #### L100.0100 #### [facility] [address] [facility] [place], [address] COMPREHENSIVE METABOLIC Collected: 04/17/2018 Status: F Source: [place] DAVILA 2:29 PM [facility] REPOSITORY TYPE CODE TESTS RESULT OUT OF [...] 13 Performed By: #### L500.4050, L501.9520 #### [facility] [address] [facility] [address] [place], [place], [address] THYROID STIM HORMONE Collected: 04/17/2018 Status: F Source: [place] (TSH) 2:29 PM [facility] REPOSITORY TYPE CODE TESTS RESULT OUT OF RANGE REFERENCE UNITS LAB L501.9520 0.358-3.74 uIU/mL Normal TSH 2.22 Performed By: #### L500.4050, L501.9520 #### [facility] [address] [facility] [address] [place], [place], [address] HEPATITIS C ANTIBODIES Collected: 04/17/2018 Status: F Source: [place] 2:29 PM [facility] REPOSITORY TYPE CODE TESTS RESULT OUT OF RANGE REFERENCE UNITS LAB L3100.0650 0.0-0.9 s/co ratio Normal HEP C AB 0.2 Result Comment: Negative: < 0.8 Indeterminate: 0.8 - 0.9 Positive: > 0.9 The CDC recommends that a positive HCV antibody result be followed up with a HCV Nucleic Acid Amplification test ([id number]). Performed at: - [facility] [id number] Generation Engineering Technologist: Octavio Reaves PhD, Phone: [phone] Performed By: #### L3100.0625 #### [facility] (refer to report for specific site) refer to report for address and phone number CBC W/DIFF, AUTOMATED Collected: 12/27/2017 Status: F Source: [place] 9:40 AM [facility] REPOSITORY TYPE CODE TESTS RESULT OUT OF [...] Lymph 1.61 Performed By: #### L100.0100 #### [facility] [address] [place], [place], [address] COMPREHENSIVE METABOLIC Collected: 12/27/2017 Status: F Source: [facility] 9:40 AM [facility] REPOSITORY TYPE CODE TESTS RESULT OUT OF [...] 11 Performed By: #### L500.4050, L501.9520 #### [facility] [address] [facility] [place], [place], [address] THYROID STIM HORMONE Collected: 12/27/2017 Status: F Source: [place] (TSH) 9:40 AM [facility] REPOSITORY TYPE CODE TESTS RESULT OUT OF RANGE REFERENCE UNITS LAB L501.9520 0.358-3.74 uIU/mL Normal TSH 1.34 Performed By: #### L500.4050, L501.9520 #### [facility] [address] [facility] [place], [place], [address] VITAMIN D,25 HYDROXY Collected: 12/27/2017 Status: F Source: [place] 9:40 AM [facility] REPOSITORY TYPE CODE TESTS RESULT OUT OF REFERENCE UNITS RANGE LAB L506.1000 29.95-100.01 ng/mL Low Vitamin D 15.7 25-OH Result Comment: Vitamin D 25(OH) Status Range Deficiency <20 ng/mL (50nmol/L) Insuffciency 20 - 30 ng/mL (50 - 75 nmol/L) Sufficiency 30 - 100 ng/mL (75 - 250 nmol/L) Toxicity >100 ng/mL (>250 nmol/L) Performed By: #### L506.1000 #### [facility] [place], [address] CBC W/DIFF, AUTOMATED Collected: 10/17/2017 Status: F Source: [place] 2:44 PM [facility] REPOSITORY TYPE CODE TESTS RESULT OUT OF [...] Lymph 1.72 Performed By: #### L100.0100 #### [facility] [address] [place], [address] COMPREHENSIVE METABOLIC Collected: 10/17/2017 Status: F Source: [place] [facility] 2:44 PM [facility] REPOSITORY TYPE CODE TESTS RESULT OUT OF [...] GAP Performed By: #### L500.4050, L501.9520 #### [facility] [address] [place], [address] THYROID STIM HORMONE Collected: 10/17/2017 Status: F Source: [place] (TSH) 2:44 PM [facility] REPOSITORY TYPE CODE TESTS RESULT OUT OF RANGE REFERENCE UNITS LAB L501.9520 0.358-3.74 uIU/mL Normal TSH 1.50 Performed By: #### L500.4050, L501.9520 #### [facility] [address] [place], [address] ALLERGIES ALLERGIES DATE TYPE / CODE NAME / CODE REACTION SEVERITY SOURCE 08/06/2018 Drug No Known Unknown [facility] Allergy/4160 [facility](SNOMED 3866247(RXNOR Repository CT) M) ENCOUNTERS ENCOUNTERS ADMIT/DISCHARGE ACCOUNT ADMITTING ENCOUNTER LOCATION SOURCE NUMBER CLASS 09/03/2018 [id number] Ambulatory BMSBuilding:B [place] 4 [place] Repository 09/03/2018 [id number] Ambulatory [place] 7 [facility] ing: Repository 08/14/2018 [id number] Ambulatory BMSBuilding:B [place] 5 [place] Repository 08/13/2018/ [id number] Ambulatory [place] 8 0 [facility] ing:WC Repository 08/08/2018 [id number] Ambulatory [place] 6 [facility] ing:LABSPEC Repository 08/06/2018/ [id number] Emergency [place] 8 1 [facility] ing:ED Repository 07/22/2018 [id number] Ambulatory [place] 5 [facility] ing:POLAB3 Repository 04/17/2018 [id number] Ambulatory [place] 1 [facility] ing:POLAB3 Repository 12/27/2017 [id number] Ambulatory [place] 7 [facility] ing:POLAB3 Repository 10/17/2017 [id number] Ambulatory [place] 7 [facility] ing:POLAB3 Repository PAYERS PAYERS ENCOUNTER GUARANTOR PAYER SUBSCRIBER SOURCE 09/03/2018 ROBINSON T SHINE Primary ROBINSON T SHINE [place] Jr.1220 POINT OF Insurance:MEDICARE Jr.: Community [place], PART A [address] [address]Kzm: Number: Repository [id number] () Date:2018-08-12 09/03/2018 Secondary ROBINSON T SHINE [place] Insurance:MEDICAIDPol Jr.: Community icy Number: [address] [place] [address] [id number] Repository Date:2018-08-12 09/03/2018 Tertiary NOT GIVENUNK [place] Insurance:SELF PAY [facility] Number: Effective Repository Date:2018-09-03 09/03/2018 ROBINSON T SHINE Primary ROBINSON T SHINE [place] Jr.1220 POINT OF Insurance:MEDICARE Jr.: Community [place], PART A [address] [address]Hac: Number: Repository [id number] () Date:2018-08-12 09/03/2018 Secondary ROBINSON T SHINE [place] Insurance:MEDICAIDPol Jr.: [facility] icy Number: [address] [place] [address] [id number] Repository Date:2018-08-12 09/03/2018 Tertiary NOT GIVENUNK [place] Insurance:SELF PAY [facility] Number: Effective Repository Date:2018-08-27 08/14/2018 ROBINSON T SHINE Primary ROBINSON T SHINE [place] Jr.1220 POINT OF Insurance:MEDICARE Jr.: Community [place], PART A [facility] [id number] [address]Sfq: Number: Repository [id number] () Date:2018-08-12 08/14/2018 Secondary ROBINSON T SHINE [place] Insurance:MEDICAIDPol Jr.: [facility] icy Number: [id number] [place] [address] [id number] Repository Date:2018-08-12 08/14/2018 Tertiary NOT GIVENUNK [place] Insurance:SELF PAY [facility] Number: Effective Repository Date:2018-08-14 08/13/2018 ROBINSON T SHINE Primary ROBINSON T SHINE [place] Jr.1220 POINT OF Insurance:MEDICARE Jr.: Community [facility], PART A [address] [address]Olk: Number: Repository [id number] () Date:2018-08-12 08/13/2018 Secondary ROBINSON T SHINE [place] Insurance:MEDICAIDPol Jr.: [facility] icy Number: [address] [place] [address] [id number] Repository Date:2018-08-12 08/13/2018 Tertiary NOT GIVENUNK [place] Insurance:SELF PAY [facility] Number: Effective Repository Date:2018-08-12 08/08/2018 ROBINSON T SHINE Primary ROBINSON T SHINE [place] Jr.1220 POINT OF Insurance:MEDICARE Jr.: Community [facility], PART A [address] [address]Uog: Number: Repository [id number] () Date:2018-08-08 08/08/2018 Secondary ROBINSON T SHINE [place] Insurance:MEDICAIDPol Jr.: [facility] icy Number: [address] [place] [address] [id number] Repository Date:2018-08-08 08/08/2018 Tertiary NOT GIVENUNK [place] Insurance:SELF PAY [facility] Number: Effective Repository Date:2018-08-08 08/06/2018 ROBINSON T SHINE Primary ROBINSON T SHINE [place] Jr.1220 POINT OF Insurance:MEDICARE Jr.: [facility] [id number] [address]Myd: Number: Repository [id number] (HP) Date:2018-08-06 08/06/2018 Secondary ROBINSON T SHINE [place] Insurance:MEDICAIDPol Jr.: [facility] icy Number: [id number] [id number] Repository Date:2018-08-06 08/06/2018 Tertiary NOT GIVENUNK [place] Insurance:SELF PAY [facility] Number: Effective Repository Date:2018-08-06 07/22/2018 ROBINSON T SHINE Primary ROBINSON T SHINE [place] Jr.[address] Insurance:MEDICARE Jr.: Community [address], PART A [facility] [id number] [address]Kjx: Number: Repository [id number] (HP) Date:2018-07-22 07/22/2018 Secondary ROBINSON T SHINE [place] Insurance:MEDICAIDPol Jr.: [facility] icy Number: [id number] [place] [address] [id number] Repository Date:2018-07-22 07/22/2018 Tertiary NOT GIVENUNK [place] Insurance:SELF PAY [facility] Number: Effective Repository Date:2018-07-22 04/17/2018 ROBINSON T SHINE Primary ROBINSON T SHINE [place] Jr.[address] Insurance:MEDICARE Jr.: [facility] [address], PART A [facility] [id number] [address]Dqx: Number: Repository [id number] (HP) Date:2018-04-17 04/17/2018 Secondary ROBINSON T SHINE [place] Insurance:MEDICAIDPol Jr.: [facility] icy Number: [id number] [place] [address] [id number] Repository Date:2018-04-17 04/17/2018 Tertiary NOT GIVENUNK [place] Insurance:SELF PAY [facility] Number: Effective Repository Date:2018-04-17 12/27/2017 ROBINSON T SHINE Primary ROBINSON T SHINE [place] Jr.[address] Insurance:MEDICARE Jr.: Community [address], PART A [facility] [id number] [address]Jyi: Number: Repository [id number] () Date:2017-12-27 12/27/2017 Secondary ROBINSON T SHINE [place] Insurance:MEDICAIDPol Jr.: [facility] icy Number: [id number] Hospital [id number] Repository Date:2017-12-27 12/27/2017 Tertiary NOT GIVENUNK [place] Insurance:SELF PAY [facility] Number: Effective Repository Date:2017-12-27 10/17/2017 ROBINSON T SHINE Primary ROBINSON T SHINE [place] Jr.[address] Insurance:MEDICARE Jr.: [facility] [address], PART A [facility] [id number] [address]Qlq: Number: Repository [id number] () Date:2017-10-17 10/17/2017 Secondary ROBINSON T SHINE [place] Insurance:MEDICAIDPol Jr.: [facility] icy Number: [id number] Hospital [id number] Repository Date:2017-10-17 10/17/2017 Tertiary NOT GIVENUNK [place] Insurance:SELF PAY [facility] Number: Effective Repository Date:2017-10-17
== END 2018-08-26 23:59 ==
LOC: WC 15:10
PROVIDERS: Family Provider Family Medicine Geriatric Medicine; PCP Family Medicine Geriatric Medicine; Visit Provider Nurse Practitioner Family
DX: S80.12XA Contusion of left lower leg, initial encounter (principal); X58.XXXA Exposure to other specified factors, initial encounter; E11.9 Type 2 diabetes mellitus without complications; L03.116 Cellulitis of left lower limb; Z87.891 Personal history of nicotine dependence; R60.0 Localized edema; E78.5 Hyperlipidemia, unspecified; F79 Unspecified intellectual disabilities; Z79.4 Long term (current) use of insulin; Z86.14 Personal history of Methicillin resistant Staphylococcus aureus infection
CPT/HCPCS: 99213; G0463

== ENCOUNTER 2018-09-03 08:39 | Outpatient (RCR) | payer MEDICARE, MEDICAID, SELFPAY ==
[2018-08-27 01:34] VITALS: BP 132/79; PULSE 72; RESP 18; TEMP 36.4
[2018-09-03 14:10] VITALS: BP 130/75; PULSE 83; TEMP 36.5; BMI 34.7
--- NOTE | 2018-09-03 15:14 | PCM.WC.PN ---
(1) Contusion of left lower leg Status: Acute Current Visit: Yes Code(s): S80.12XA - Contusion of left lower leg, initial encounter (2) Cellulitis of left lower leg Status: Resolved Current Visit: Yes Code(s): L03.116 - Cellulitis of left lower limb (3) Diabetes mellitus, type 2 Status: Chronic Current Visit: Yes Code(s): E11.9 - Type 2 diabetes mellitus without complications Type of Wound Date of Service: 09/03/18 Chief Complaint: Left lower anterior leg redness and swelling. History of Wound: This is a 53-year-old white male with cognitive impairment who is a resident of a skilled nursing. He presents to the [facility] accompanied by an aide. He was referred by his PCP, Dr. Lopez. On 08/06/18 he was seen in the ED for left lower anterior extremity cellulitis and he had two small open areas. He was treated with Keflex. He followed up with his PCP a couple days later and Dr. Lopez obtained a wound culture that showed MRSA. The patient was started on Sivextro daily along with the Keflex. The patient was then referred to the wound healing clinic for further wound management. His left lower extremity does not have any opened areas at this time, but he does have significant redness and +1-+2 bilateral lower extremity edema. Progress of Wound: Healed. No opened area. Cellulitis is resolve. Completed antibiotics. - Physical Exam Vital Signs Temp Pulse Resp BP 97.7 F L 83 18 130/75 H 09/03/18 14:10 09/03/18 14:10 08/27/18 01:34 09/03/18 14:10 General: Alert, Cooperative HEENT: Atraumatic Extremities: Capillary Refill Less than 3 Seconds, Edema, Peripheral Pulses Normal Skin: No rashes, No breakdown - Left anterior tubbs is intact. Cellulitis is resolved. Wound Measurements and Assessment WC - Nurse 1 - General Ulcer Measurement Start: 09/03/18 14:09 Freq: Status: Active Protocol: Activity Type Activity Date Activity User E-Sign Co-Sign Detail Recorded Client Recorded Date Recorded By Document 09/03/18 14:10 [id number] 09/03/18 14:14 09/03/18 14:10 Wound Center Nurse 1 [Edema Assessment] -Lower Limb Edema Present No -Left Calf (cm) 36.0 -Left Ankle (cm) 22.5 WC - Nurse 2 - General Ulcer CM Notes Start: 09/03/18 14:09 Freq: Status: Active Protocol: Activity Type Activity Date Activity User E-Sign Co-Sign Detail Recorded Client Recorded Date Recorded By Document 09/03/18 14:41 [id number] 09/03/18 14:42 09/03/18 14:41 Pain Scale: 0-10 Numeric [Pain] -Is Patient Pain Free? Yes Musculoskeletal: No Tenderness to Palpation of Joints or Extremities Neurological: Neuro grossly intact Psych/Mental Status: Flat Affect Debridement Note Post-Debridement Measurements/Treatment WC - Nurse 2 - General Ulcer CM Notes Start: 09/03/18 14:09 Freq: Status: Active Protocol: Activity Type Activity Date Activity User E-Sign Co-Sign Detail Recorded Client Recorded Date Recorded By Document 09/03/18 14:41 [id number] 09/03/18 14:42 09/03/18 14:41 Pain Scale: 0-10 Numeric Is Patient Pain Free? Yes Wound debrided: Left anterior lower leg No debridement was completed today Assessment/Plan Active Problems Contusion of left lower leg (Acute) Diabetes mellitus, type 2 (Chronic) Assessment: 1. Contusion of left lower leg. 2. Cellulitis of left lower leg. 3. Chronic anticoagulation. 4. Diabetes mellitus, type 2 Plan: Left anterior lower extremity is healed. No opened areas. Cellulitis is resolved. Wound cultures showed MRSA and he was diagnosed with cellulitis on 08/06/18. Patient completed antibiotics. Continue to apply double layer tubigrip to the left lower leg. This will help with edema and give an extra layer of protection to tubbs area. Encouraged to apply unscented lotion to bilateral legs daily to help with dry sking. He will be discharged from the wound healing center today. Code Visit Office Visits / Consults: [id number] OV L2 Est
== END 2018-09-26 23:59 ==
LOC: WC 08:39
PROVIDERS: Family Provider Family Medicine Geriatric Medicine; PCP Family Medicine Geriatric Medicine; Visit Provider Nurse Practitioner Family
DX: Z09 Encounter for follow-up examination after completed treatment for conditions other than malignant neoplasm (principal); E11.9 Type 2 diabetes mellitus without complications; Z86.14 Personal history of Methicillin resistant Staphylococcus aureus infection; R60.0 Localized edema
CPT/HCPCS: 99212; G0463

== ENCOUNTER → 2018-10-21 14:53 | Outpatient (CLI) | payer MEDICARE, MEDICAID, SELFPAY ==
[2018-10-21 17:17] LABS: Absolute Lymphocyte Count 2.14 X10^3/ul (0.83-4.51); Absolute Neutrophil Count 4.9 X10^3/uL (2.0-7.7); Basophil# 0.05 X10^3/uL; Basophil% 0.6 % (0-1); Eosinophil# 0.13 X10^3/uL; Eosinophils% 1.7 % (0-5); Hematocrit 45.6 % (40-54); Hemoglobin 15.1 g/dl (13.0-16.5); Lymphocyte # 2.14 X10^3/ul (4.0); Lymphocyte % 27.2 % (19-41); Mean Corp Hgb Conc 33.1 g/gl (32-36); Mean Corpuscular Hgb 29.7 pg (27.0-32.0); Mean Corpuscular Volume 89.6 fL (80-94); Mean Platelet Vol. 11.5 fl (6.2-12.0); Monocyte# 0.59 X10^3/uL; Monocyte% 7.5 % (0-10); Neutrophil # 4.94 X10^3/uL (2.7-7.7); Neutrophil % 62.9 % (47-70); Platelet Count 214 K/mm3 (150-450); RBC Distribution Width CV 13.9 % (11.6-14.6); RBC Distribution Width SD 45.6 fl (35.1-43.9); Red Blood Count 5.09 M/mm3 (4.6-6.2); White Blood Count 7.9 K/mm3 (4.4-11.0)
[2018-10-21 17:23] LABS: ALB/GLOB Ratio 0.8 RATIO (0.9-2.4); AST(SGOT) 17 U/L (15-37); Alanine Aminotransfer ALT/SGPT 32 U/L (16-61); Albumin, Serum 3.6 g/dL (3.2-5.0); Alkaline Phosphatase 99 U/L (45-117); Anion Gap 15 (5-15); BUN 14 mg/dL (7-18); BUN/Creat Ratio 12.4 RATIO (10-20); Calcium,Total 8.8 mg/dL (8.5-10.1); Chloride 102 mmol/L (98-107); Creatinine, Serum 1.13 mg/dL (0.70-1.30); EST Glomerular Filtration Rate 72 mL/min (>60); Est Glom Filt Rate - Afr Amer 87 mL/min (>60); Globulin 4.3 g/dL (2.2-4.2); Glucose 135 mg/dL (74-106); POSITIVE COUNT NO; POSITIVE DIFFERENTIAL NO; POSITIVE MORPHOLOGY NO; Protein, Total 7.9 g/dL (6.4-8.2); Sodium Level 139 mmol/L (136-145); Thyroid Stim Hormone (TSH) 3.22 uIU/mL (0.358-3.74); Uric Acid 5.3 mg/dL (3.5-7.2)
== END ==
PROVIDERS: Family Provider Family Medicine Geriatric Medicine; PCP Family Medicine Geriatric Medicine; Visit Provider Family Medicine Geriatric Medicine
DX: E11.9 Type 2 diabetes mellitus without complications (principal); I10 Essential (primary) hypertension; M10.9 Gout, unspecified
CPT/HCPCS: 36415; 80053; 84443; 84550; 85025

== ENCOUNTER → 2019-01-22 12:06 | Outpatient (CLI) | payer MEDICARE, MEDICAID, SELFPAY ==
[2019-01-22 17:46] LABS: Absolute Lymphocyte Count 1.98 X10^3/ul (0.83-4.51); Absolute Neutrophil Count 4.6 X10^3/uL (2.0-7.7); Basophil# 0.03 X10^3/uL; Basophil% 0.4 % (0-1); Eosinophil# 0.13 X10^3/uL; Eosinophils% 1.8 % (0-5); Hematocrit 44.1 % (40-54); Lymphocyte # 1.98 X10^3/ul (4.0); Lymphocyte % 26.8 % (19-41); Mean Corpuscular Volume 88.2 fL (80-94); Mean Platelet Vol. 11.3 fl (6.2-12.0); Monocyte# 0.68 X10^3/uL; Monocyte% 9.2 % (0-10); Neutrophil # 4.55 X10^3/uL (2.7-7.7); Neutrophil % 61.5 % (47-70); Platelet Count 225 K/mm3 (150-450); RBC Distribution Width CV 14.5 % (11.6-14.6); RBC Distribution Width SD 46.6 fl (35.1-43.9); White Blood Count 7.4 K/mm3 (4.4-11.0)
[2019-01-22 17:57] LABS: POSITIVE COUNT NO; POSITIVE DIFFERENTIAL NO; POSITIVE MORPHOLOGY NO; Vitamin D,25 Hydroxy 31.9 ng/mL (29.95-100.01)
[2019-01-22 18:09] LABS: ALB/GLOB Ratio 0.8 RATIO (0.9-2.4); AST(SGOT) 21 U/L (15-37); Alanine Aminotransfer ALT/SGPT 33 U/L (16-61); Albumin, Serum 3.4 g/dL (3.2-5.0); Alkaline Phosphatase 92 U/L (45-117); Anion Gap 13 (5-15); BUN 18 mg/dL (7-18); BUN/Creat Ratio 14.4 RATIO (10-20); Calcium,Total 8.4 mg/dL (8.5-10.1); Chloride 103 mmol/L (98-107); Creatinine, Serum 1.25 mg/dL (0.70-1.30); EST Glomerular Filtration Rate 64 mL/min (>60); Est Glom Filt Rate - Afr Amer 77 mL/min (>60); Globulin 4.3 g/dL (2.2-4.2); Glucose 125 mg/dL (74-106); Protein, Total 7.7 g/dL (6.4-8.2); Sodium Level 139 mmol/L (136-145); Thyroid Stim Hormone (TSH) 1.57 uIU/mL (0.358-3.74)
== END ==
PROVIDERS: Family Provider Family Medicine Geriatric Medicine; PCP Family Medicine Geriatric Medicine; Visit Provider Family Medicine Geriatric Medicine
DX: E11.9 Type 2 diabetes mellitus without complications (principal); E55.9 Vitamin D deficiency, unspecified; I10 Essential (primary) hypertension
CPT/HCPCS: 36415; 80053; 82306; 84443; 85025

== ENCOUNTER 2019-03-28 20:05 | Emergency (ER) | payer MEDICARE, MEDICAID, SELFPAY ==
[2019-03-28 20:06] VITALS: BP 113/67; PULSE 82; RESP 15; TEMP 36.7; O2SAT 96; BMI 32.8
[2019-03-28] MEDS: Clindamycin HCl 150 MG Capsule 300 MG PO (20:57)
[2019-03-28 21:21] LABS: International Normalized Ratio 2.4; Prothrombin Time (Protime)PT. 26.3 SECONDS (11.7-14.9)
--- NOTE | 2019-03-28 22:08 | ED.DCSUM_ITS ---
- ER Visit Summary Date of Service: 03/28/19 Chief Complaint: Cellulitis History of Present Illness: The patient is a 54 M with cellulitis to his left leg. This was noted today. No fever or systemic symptoms. He had this in the past. 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 No calf pain or swelling. Physical Examination: Afebrile and vital signs unremarkable. Patient has a silver dollar sized ulceration to his left tubbs. This is very superficial. There is surrounding erythema about the size of his open hand surrounding this ulceration. This does not communicate with the bone. He is neurovascularly intact distally. It does not track or streak. Test Results: INR 2.4. Emergency Department Course and Treatment: Patient was treated with clindamycin to cover MRSA. No indication for further testing. Patient and nursing home staff advised that antibiotics can raise his INR and make him at risk for bleeding. Recheck INR on Sunday. Keep the area clean and dry. Follow-up with primary care and also wound care. Return for new or worsening issues. Treatment Plan: As above Disposition: Discharge Impression: 1. Left lower leg cellulitis This note was generated with [employer] dictation software. It may contain incorrect words, spelling, and punctuation that were not noted in review of the chart prior to signing ED Disposition - Plan for ED Patient: Referrals: Cali Lopez Chi, MD [Primary Care Provider] -
--- NOTE | 2019-03-28 22:10 | ED.DEP ---
ED Disposition - Plan for ED Patient: Instructions: Cellulitis Prescriptions: Clindamycin [Cleocin] 300 mg PO 4X/DAY #80 cap Prescription Printed Referrals: Cali Lopez Chi, MD [Primary Care Provider] - Fran Ferrer MD [STAFF PHYSICIAN] -
== END 2019-03-28 22:26 | disposition home or self-care (01) ==
LOC: ED 20:46
PROVIDERS: Emergency Provider Emergency Medicine; Family Provider Family Medicine Geriatric Medicine; PCP Family Medicine Geriatric Medicine
DX: L03.116 Cellulitis of left lower limb (principal); A49.02 Methicillin resistant Staphylococcus aureus infection, unspecified site; Z79.01 Long term (current) use of anticoagulants; Z86.711 Personal history of pulmonary embolism
CPT/HCPCS: 85610; 99282

== ENCOUNTER → 2019-03-31 14:36 | Outpatient (CLI) | payer MEDICARE, MEDICAID, SELFPAY ==
[2019-03-28 20:06] VITALS: BMI 32.8
[2019-03-31 18:12] LABS: M R Staph aureus DNA By PCR Negative (Negative); Probe Check PASS; Specimen Processing Control PASS; Staph aureus DNA By PCR NEGATIVE (Negative)
== END ==
LOC: POLAB3 14:38 → LABSPEC 15:10
PROVIDERS: Family Provider Family Medicine Geriatric Medicine; PCP Family Medicine Geriatric Medicine; Visit Provider Family Medicine Geriatric Medicine
DX: L03.119 Cellulitis of unspecified part of limb (principal); B95.62 Methicillin resistant Staphylococcus aureus infection as the cause of diseases classified elsewhere
CPT/HCPCS: 87070; 87077; 87186; 87205; 87640

== ENCOUNTER 2019-04-23 10:15 | Outpatient (RCR) | payer MEDICARE, MEDICAID, SELFPAY ==
[2018-09-27 01:34] VITALS: BP 130/75; PULSE 83; RESP 18; TEMP 36.5
[2019-04-02 14:30] VITALS: BP 107/62; PULSE 78; RESP 22; TEMP 36; BMI 33.2
--- NOTE | 2019-04-02 15:44 | PCM.WC.HP ---
(1) Edema of both lower extremities Status: Chronic Current Visit: Yes Code(s): R60.0 - Localized edema (2) Ulcer of right lower extremity with fat layer exposed Status: Acute Current Visit: Yes Code(s): L97.912 - Non-pressure chronic ulcer of unspecified part of right lower leg with fat layer exposed (3) Diabetes mellitus, type 2 Status: Chronic Current Visit: Yes Code(s): E11.9 - Type 2 diabetes mellitus without complications (4) Mental retardation Status: Chronic Current Visit: Yes Code(s): F79 - Unspecified intellectual disabilities History of Present Illness Date of Service: 04/02/19 Chief Complaint: Left lower anterior leg redness and swelling. History of Wound: This is a 54-year-old white male with cognitive impairment who is a resident of a correction. He relates he was moisturizing and drying his leg about 1 to 2 weeks ago in which the skin peeled off. His skin is very thin. He denies fever, chill, nausea, vomiting. He denies distinct pain. He denies burning or tingling. He is with his caregiver today. Past Medical History Past Medical History: Chronic Problems Chronic anticoagulation (Chronic) Edema of both lower extremities (Chronic) Nondisplaced fracture of right humerus (Chronic) Seizure disorder (Chronic) Depression (Chronic) Diabetes mellitus, type 2 (Chronic) Hyperlipidemia (Chronic) Mental retardation (Chronic) History of syncope (Chronic) Tobacco user (Chronic) Surgical History: - - It was reported that the patient has history of gallbladder surgery. Allergies/Adverse Reactions: Allergies No Known Allergies Allergy (Verified 03/28/19 20:09) Home Medications: Ambulatory Orders Medication Instructions Recorded Metformin HCl [Metformin HCl ER] 500 mg PO BID 09/27/16 Cephalexin [Keflex] 500 mg PO Q6 #40 cap 08/06/18 Empagliflozin [Jardiance] 25 mg PO DAILY 08/06/18 Warfarin [Coumadin] 5 mg PO DAILY@1700 08/06/18 Bupropion HCl [Bupropion HCl Sr] 150 mg PO BID 08/13/18 Clotrimazole/Betamethasone 1 applic TOPICAL BID PRN 08/13/18 [Lotrisone] Ergocalciferol [Vitamin D] 1 unit PO QMONTH 08/13/18 Nicotine [Nicotine Patch] 21 mg TD DAILY 08/13/18 Polyethylene Glycol 3350 [Miralax] 17 gm PO DAILY 08/13/18 Clindamycin [Cleocin] 300 mg PO 4X/DAY #80 cap 03/28/19 - Family History Maternal - - The patient's mother suffered from diabetes mellitus. She at the age of 54. Paternal - - The patient's father from a pill overdose, age unknown. Smoking Status: Current some day smoker Review of Systems Constitutional: Denies: Chills, Fever Cardiovascular: Denies: Claudication Respiratory: Denies: Shortness of Breath Gastrointestinal: Denies: Nausea, Vomiting Musculoskeletal: Denies: Leg Pain Skin: Reports: Skin Changes, Wounds Neurological: Denies: Numbness - Physical Exam Vital Signs Temp Pulse Resp BP 96.8 F L 78 22 H 107/62 04/02/19 14:30 04/02/19 14:30 04/02/19 14:30 04/02/19 14:30 General: Alert, Cooperative, No apparent distress HEENT: Atraumatic Extremities: No cyanosis, Capillary Refill Less than 3 Seconds, No Calf Tenderness - Negative Abimael and Rashid sign bilateral, Edema - +2 edema bilateral lower extremities, Peripheral Pulses Normal - 2 out of 4 PT and DP pulses bilateral hair to legs noted bilateral, - - Compartments remain soft to palpate bilateral Skin: Ulcer/ Wound - No purulence, no erythema, streaking, odor, no infection. No deep tissue exposure necrosis. The peripheral skin is hairless and atrophic. There is hyperpigmentation to the anterior mid legs bilateral Wound Measurements and Assessment WC - Nurse 1 - General Ulcer Measurement Start: 04/02/19 14:17 Freq: Status: Active Protocol: Activity Type Activity Date Activity User E-Sign Co-Sign Detail Recorded Client Recorded Date Recorded By Document 04/02/19 14:30 DL [id number] 04/02/19 14:46 DL 04/02/19 14:30 Wound Center Nurse 1 [Ulcer Assessment] #3 L Griffin -Current Size (cm) - Length 0.5 -Current Size (cm) - Width 0.6 -Current Size (cm) - Depth 0.1 -Total Square Cm 0.30 -Photo Taken Yes -Exudate Amt None Present -Wound Margin Flat & Intact -Granulation Amt Small (1-33%) -Granulation Quality Red -Necrosis Amt None Present (0 %) -Structure Exposed N/A -Texture (Morenita-wound Skin Appearance) Scarring -Moisture (Morenita-wound Skin Appearance No Abnormality ) -Color (Morenita-wound Skin Appearance) Hemosiderin Staining,Rubor -Temperature (Morenita-wound Skin No Abnormality Appearance) (Pt Warm) -Tenderness on Palpation (Morenita-wound No Skin Appearance) -Ulcer Cleansing Rinsed/ Irrigated with Saline -Foul Odor after Cleansing No -Anesthetic Used 4% Lidocaine Solution [Edema Assessment] -Right Calf (cm) 36.3 -Right Ankle (cm) 22.5 -Left Calf (cm) 36.7 -Left Ankle (cm) 23.8 - Nurse 2 - General Ulcer CM Notes Start: 04/02/19 14:17 Freq: Status: Active Protocol: Activity Type Activity Date Activity User E-Sign Co-Sign Detail Recorded Client Recorded Date Recorded By Document 04/02/19 15:15 AN [id number] 04/02/19 15:16 AN 04/02/19 15:15 Wound Center Nurse 2 [Procedure/Treatment] #3 L Griffin -Time 15:16 -Correct Patient Yes -Correct Side, Site, Position Yes -Correct Procedure Yes -Procedure Performed Yes -Type of Procedure Debridement -Clinical Debridement Subcutaneous -Post Debridement Size (cm) - Length 0.6 -Post Debridement Size (cm) - Width 0.7 -Post Debridement Size (cm) - Depth 0.1 -Total Square Cm 0.42 -Wound/Ulcer Outcome Not Healed -Ulcer Cleansing Rinsed/ Irrigated with Saline -Foul Odor after Cleansing No -Bioengineered Tissue No -Bleeding Controlled with Pressure -Offloading No -Treatment Response Procedure Tolerated Well [See Physician Procedure note for Specifics] Pain Scale: 0-10 Numeric [Pain] -Is Patient Pain Free? Yes Musculoskeletal: No Tenderness to Palpation of Joints or Extremities, Muscle Wasting Neurological: Sensory exam intact to light touch and pain, - Psych/Mental Status: Normal Affect, Appropriate Debridement Note Post-Debridement Measurements/Treatment - Nurse 2 - General Ulcer CM Notes Start: 04/02/19 14:17 Freq: Status: Active Protocol: Activity Type Activity Date Activity User E-Sign Co-Sign Detail Recorded Client Recorded Date Recorded By Document 04/02/19 15:15 AN [id number] 04/02/19 15:16 AN 04/02/19 15:15 Wound Center Nurse 2 #3 L Griffin -Time 15:16 -Correct Patient Yes -Correct Side, Site, Position Yes -Correct Procedure Yes -Procedure Performed Yes -Type of Procedure Debridement -Clinical Debridement Subcutaneous -Post Debridement Size (cm) - Length 0.6 -Post Debridement Size (cm) - Width 0.7 -Post Debridement Size (cm) - Depth 0.1 -Total Square Cm 0.42 -Wound/Ulcer Outcome Not Healed -Ulcer Cleansing Rinsed/ Irrigated with Saline -Foul Odor after Cleansing No -Bioengineered Tissue No -Bleeding Controlled with Pressure -Offloading No -Treatment Response Procedure Tolerated Well Pain Scale: 0-10 Numeric Is Patient Pain Free? Yes Wound debrided: anterior leg Laterality: Left Wound Grade/Stage: grade 1 Type of Debridement: Excisional debridement Anesthesia Used: 5% Lidocaine Gel Depth: in the subcutaneous layer Percentage of wound debrided: 100 Instrument Used: #15 blade Tissue Removed: fibrous, devitalized subcutaneous, biofilm, slough Severity: Fat Layer Exposed Amount of bleeding with debridement: Mild Bleeding Controlled with: Pressure Patient tolerated procedure well Assessment/Plan Active Problems Edema of both lower extremities (Chronic) Ulcer of right lower extremity with fat layer exposed (Acute) Diabetes mellitus, type 2 (Chronic) Mental retardation (Chronic) Assessment: Ulcer left leg with fat layer exposed no infection. Diabetes. Lower extremity edema. Venous insufficiency suspected. Malnutrition suspected Plan: I reviewed and discussed his case today. Subcutaneous excisional debridement was performed as noted in the clinical panel. He tolerated this well. Keep pressure off of the site by avoiding laying in the prone position. To change dressing daily with Aquacel Ag and to monitor for signs of infection. He is reassured no signs of infection noted today. A prescription for Jeison nutritional supplementation was also provided to optimize healing. Additional lab work and diagnostic data including venous duplex Doppler will be ordered if he has lack of healing progress noted. It is noted he had a previous venous duplex Doppler with reflux evaluation performed approximately 5 years ago which were normal at that time. To return to the wound healing center in 2 weeks or call sooner if he is any questions or concerns. Answered all of his questions as well as his caregiver's questions.
[2019-04-16 10:13] VITALS: BP 105/68; PULSE 74; RESP 16; TEMP 36.3; BMI 33.2
[2019-04-16 12:18] LABS: Absolute Lymphocyte Count 1.68 X10^3/uL (0.83-4.51); Basophil# 0.07 X10^3/uL; Basophil% 1.1 % (0-1); Eosinophil# 0.07 X10^3/uL; Eosinophils% 1.1 % (0-5); Hematocrit 45.6 % (40-54); Lymphocyte # 1.68 X10^3/ul (4.0); Lymphocyte % 26.4 % (19-41); Mean Corp Hgb Conc 32.9 g/dL (32-36); Mean Corpuscular Hgb 30.2 pg (27.0-32.0); Mean Corpuscular Volume 91.8 fL (80-94); Mean Platelet Vol. 11.2 fl (6.2-12.0); Monocyte# 0.56 X10^3/uL; Monocyte% 8.8 % (0-10); NRBC Flagged by Analyzer 0 % (0-5); Neutrophil # 3.98 X10^3/uL (2.7-7.7); Neutrophil % 62.4 % (47-70); Platelet Count 198 K/mm3 (150-450); RBC Distribution Width CV 14.7 % (11.6-14.6); RBC Distribution Width SD 49.1 fl (35.1-43.9); Red Blood Count 4.97 M/mm3 (4.6-6.2); White Blood Count 6.4 K/mm3 (4.4-11.0)
--- NOTE | 2019-04-16 12:34 | PN.PCM_ITS ---
(1) Ulcer of left lower extremity with fat layer exposed Status: Chronic Current Visit: Yes Code(s): L97.922 - Non-pressure chronic ulcer of unspecified part of left lower leg with fat layer exposed (2) Edema of both lower extremities Status: Chronic Current Visit: Yes Code(s): R60.0 - Localized edema (3) Ulcer of right lower extremity with fat layer exposed Status: Chronic Current Visit: Yes Code(s): L97.912 - Non-pressure chronic ulcer of unspecified part of right lower leg with fat layer exposed (4) Diabetes mellitus, type 2 Status: Chronic Current Visit: Yes Code(s): E11.9 - Type 2 diabetes mellitus without complications (5) Mental retardation Status: Chronic Current Visit: Yes Code(s): F79 - Unspecified intellectual disabilities (6) Venous insufficiency Status: Suspected Current Visit: Yes Code(s): I87.2 - Venous insufficiency (chronic) (peripheral) Type of Wound Date of Service: 04/16/19 Chief Complaint: leg ulcers bilateral History of Wound: This is a 54-year-old white male with cognitive impairment who is a resident of a care home. He follows up for bilateral leg ulcer care. He denies fever, chill, nausea, vomiting. He denies distinct pain. He denies burning or tingling. He is with his caregiver today. Progress of Wound: improving - Physical Exam Vital Signs Temp Pulse Resp BP 97.3 F L 74 16 105/68 04/16/19 10:13 04/16/19 10:13 04/16/19 10:13 04/16/19 10:13 General: Alert, Oriented x3, Cooperative, No apparent distress Extremities: No cyanosis, No edema, Capillary Refill Less than 3 Seconds, Edema - Mild bilateral lower extremities, Peripheral Pulses Normal Skin: Ulcer/ Wound - No purulence, erythema, streaking, odor, infection bilateral. Skin is hairless and atrophic with hyperpigmentation and some varicosities Wound Measurements and Assessment WC - Nurse 1 - General Ulcer Measurement Start: 04/02/19 14:17 Freq: Status: Active Protocol: Activity Type Activity Date Activity User E-Sign Co-Sign Detail Recorded Client Recorded Date Recorded By Document 04/16/19 10:13 BON [email or web address] 04/16/19 10:21 BON 04/16/19 10:13 Wound Center Nurse 1 [Ulcer Assessment] 4-right tubbs -Combined with other wound No -Current Size (cm) - Length 2 -Current Size (cm) - Width 1.5 -Current Size (cm) - Depth 0.1 -Total Square Cm 3.0 -Photo Taken Yes -Epithelialization Small 1-33% -Tunneling No -Undermining/Tunneling No -Circular Undermining No -Exudate Amt Small -Exudate Type Serosanguineous -Wound Margin Flat & Intact -Granulation Amt Large (67-100%) -Granulation Quality Red -Slough/Fibrin Yes -Necrosis Amt Small (1-33%) -Necrotic Tissue Type Adherent Slough -Structure Exposed N/A -Texture (Morenita-wound Skin Appearance) Assessed, Localized Edema -Moisture (Morenita-wound Skin Appearance Assessed,Dry/ ) Scaly -Color (Morenita-wound Skin Appearance) Assessed, Hemosiderin Staining -Temperature (Morenita-wound Skin No Abnormality Appearance) (Pt Warm) -Tenderness on Palpation (Morenita-wound No Skin Appearance) -Ulcer Cleansing Rinsed/ Irrigated with Saline -Foul Odor after Cleansing No -Anesthetic Used 5% Lidocaine Gel #3 L Tubbs -Combined with other wound No -Current Size (cm) - Length 0.6 -Current Size (cm) - Width 0.8 -Current Size (cm) - Depth 0.1 -Total Square Cm 0.48 -Photo Taken No -Epithelialization Large 67-100% -Tunneling No -Undermining/Tunneling No -Circular Undermining No -Exudate Amt Small -Exudate Type Serosanguineous -Wound Margin Flat & Intact -Granulation Amt Large (67-100%) -Granulation Quality Red -Slough/Fibrin Yes -Necrosis Amt Small (1-33%) -Necrotic Tissue Type Adherent Slough -Structure Exposed N/A -Texture (Morenita-wound Skin Appearance) Assessed, Localized Edema -Moisture (Morenita-wound Skin Appearance Assessed,Dry/ ) Scaly -Color (Morenita-wound Skin Appearance) Assessed, Hemosiderin Staining -Temperature (Morenita-wound Skin No Abnormality Appearance) (Pt Warm) -Tenderness on Palpation (Morenita-wound No Skin Appearance) -Ulcer Cleansing Rinsed/ Irrigated with Saline -Foul Odor after Cleansing No -Anesthetic Used 5% Lidocaine Gel [Edema Assessment] -Lower Limb Edema Present Yes -Right Calf (cm) 35.5 -Right Ankle (cm) 23.3 -Left Calf (cm) 35 -Left Ankle (cm) 22.4 WC - Nurse 2 - General Ulcer CM Notes Start: 04/02/19 14:17 Freq: Status: Active Protocol: Activity Type Activity Date Activity User E-Sign Co-Sign Detail Recorded Client Recorded Date Recorded By Document 04/16/19 10:38 AN [id number] 04/16/19 10:39 AN 04/16/19 10:38 Wound Center Nurse 2 [Procedure/Treatment] 4-right tubbs -Time 10:38 -Correct Patient Yes -Correct Side, Site, Position Yes -Correct Procedure Yes -Procedure Performed Yes -Type of Procedure Debridement -Clinical Debridement Subcutaneous -Post Debridement Size (cm) - Length 2.0 -Post Debridement Size (cm) - Width 1.5 -Post Debridement Size (cm) - Depth 0.1 -Total Square Cm 3.00 -Wound/Ulcer Outcome Not Healed -Ulcer Cleansing Rinsed/ Irrigated with Saline -Foul Odor after Cleansing No -Bioengineered Tissue No -Bleeding Controlled with Pressure -Offloading No -Treatment Response Procedure Tolerated Well #3 L Tubbs -Time 10:39 -Correct Patient Yes -Correct Side, Site, Position Yes -Correct Procedure Yes -Procedure Performed Yes -Type of Procedure Debridement -Clinical Debridement Subcutaneous -Post Debridement Size (cm) - Length 0.7 -Post Debridement Size (cm) - Width 0.9 -Post Debridement Size (cm) - Depth 0.1 -Total Square Cm 0.63 -Wound/Ulcer Outcome Not Healed -Ulcer Cleansing Rinsed/ Irrigated with Saline -Foul Odor after Cleansing No -Bioengineered Tissue No -Bleeding Controlled with Pressure -Treatment Response Procedure Tolerated Well [See Physician Procedure note for Specifics] Musculoskeletal: No Tenderness to Palpation of Joints or Extremities, Muscle Wasting, - - Compartments are soft to palpate bilateral lower extremity Neurological: Sensory exam intact to light touch and pain Psych/Mental Status: Normal Affect, Appropriate Debridement Note Post-Debridement Measurements/Treatment NOELLE - Nurse 2 - General Ulcer CM Notes Start: 04/02/19 14:17 Freq: Status: Active Protocol: Activity Type Activity Date Activity User E-Sign Co-Sign Detail Recorded Client Recorded Date Recorded By Document 04/02/19 15:15 AN [id number] 08/07/19 15:16 AN Document 04/16/19 10:38 AN [id number] 04/16/19 10:39 AN 04/02/19 04/16/19 15:15 10:38 Wound Center Nurse 2 4-right tubbs -Time 10:38 -Correct Patient Yes -Correct Side, Site, Position Yes -Correct Procedure Yes -Procedure Performed Yes -Type of Procedure Debridement -Clinical Debridement Subcutaneous -Post Debridement Size (cm) - Length 2.0 -Post Debridement Size (cm) - Width 1.5 -Post Debridement Size (cm) - Depth 0.1 -Total Square Cm 3.00 -Wound/Ulcer Outcome Not Healed -Ulcer Cleansing Rinsed/ Irrigated with Saline -Foul Odor after Cleansing No -Bioengineered Tissue No -Bleeding Controlled with Pressure -Offloading No -Treatment Response Procedure Tolerated Well #3 L Tubbs -Time 15:16 10:39 -Correct Patient Yes Yes -Correct Side, Site, Position Yes Yes -Correct Procedure Yes Yes -Procedure Performed Yes Yes -Type of Procedure Debridement Debridement -Clinical Debridement Subcutaneous Subcutaneous -Post Debridement Size (cm) - Length 0.6 0.7 -Post Debridement Size (cm) - Width 0.7 0.9 -Post Debridement Size (cm) - Depth 0.1 0.1 -Total Square Cm 0.42 0.63 -Wound/Ulcer Outcome Not Healed Not Healed -Ulcer Cleansing Rinsed/ Rinsed/ Irrigated with Irrigated with Saline Saline -Foul Odor after Cleansing No No -Bioengineered Tissue No No -Bleeding Controlled with Pressure Pressure -Offloading No -Treatment Response Procedure Procedure Tolerated Well Tolerated Well Pain Scale: 0-10 Numeric Is Patient Pain Free? Yes Wound debrided: leg Laterality: Right Wound Grade/Stage: grade 1 Type of Debridement: Excisional debridement Anesthesia Used: 5% Lidocaine Gel Depth: in the subcutaneous layer Percentage of wound debrided: 100 Instrument Used: #15 blade Tissue Removed: fibrous, devitalized subcutaneous, biofilm, slough Severity: Fat Layer Exposed Amount of bleeding with debridement: Mild Bleeding Controlled with: Pressure Patient tolerated procedure well - Additional Wound Wound debrided: leg Laterality: Left Type of Debridement: Excisional debridement Anesthesia Used: 5% Lidocaine Gel Depth: in the subcutaneous layer Percentage of wound debrided: 100 Instrument Used: #15 blade Tissue Removed: fibrous, devitalized subcutaneous, biofilm, slough Severity: Fat Layer Exposed Amount of bleeding with debridement: Mild Bleeding Controlled with: Pressure Patient tolerated procedure: Patient tolerated procedure well Assessment/Plan Active Problems Ulcer of left lower extremity with fat layer exposed (Chronic) Edema of both lower extremities (Chronic) Ulcer of right lower extremity with fat layer exposed (Chronic) Diabetes mellitus, type 2 (Chronic) Mental retardation (Chronic) Assessment: Ulcer left and right leg with fat layer exposed no infection. Diabetes history. Lower extremity edema. Venous insufficiency suspected. Malnutrition suspected Plan: I reviewed and discussed his case today. Subcutaneous excisional mariella ridement was performed as noted in the clinical panel to both sites. He tolerated this well. Keep pressure off of the site by avoiding laying in the prone position. To change dressing daily with Aquacel Ag and to monitor for signs of infection. He is reassured no signs of infection noted today. A prescription for Jeison nutritional supplementation was also provided to optimize healing. Additional lab work and diagnostic data including venous duplex Doppler were ordered today. Labs were reviewed at the clinic and he does not have leukocytosis or other gross abnormalities. His prealbumin was within the normal range however was on the lower end. It is noted he had a previous venous duplex Doppler with reflux evaluation performed approximately 5 years ago which were normal at that time. This updated test results are still pending we will help him get scheduled. To return to the wound healing center in 1 week or call sooner if he is any questions or concerns. Answered all of his questions as well as his caregiver's questions.
[2019-04-16 12:56] LABS: ALB/GLOB Ratio 0.9 RATIO (0.9-2.4); AST(SGOT) 10 U/L (15-37); Alanine Aminotransfer ALT/SGPT 23 U/L (16-61); Albumin, Serum 3.6 g/dL (3.2-5.0); Alkaline Phosphatase 57 U/L (45-117); Anion Gap 8 (5-15); BUN 20 mg/dL (7-18); BUN/Creat Ratio 18.2 RATIO (10-20); Calcium,Total 9.1 mg/dL (8.5-10.1); Chloride 106 mmol/L (98-107); EST Glomerular Filtration Rate 74 mL/min (>60); Est Glom Filt Rate - Afr Amer 90 mL/min (>60); Estimated Creatinine Clearance 66.78 ml/min; Globulin 3.8 g/dL (2.2-4.2); Glucose 114 mg/dL (74-106); Potassium 4.3 mmol/L (3.5-5.1); Prealbumin 36.1 mg/dL (20.0-40.0); Protein, Total 7.4 g/dL (6.4-8.2); Sodium Level 140 mmol/L (136-145)
--- NOTE | 2019-04-23 08:54 | VDLE_ITS ---
Reason For Study: Venous insufficiency RIGHT LEFT CFV is compressible, spontaneous, phasic, CFV is compressible, spontaneous, phasic, competent and demonstrates normal competent, and demonstrates normal augmentation. augmentation. FV is compressible, spontaneous, phasic, FV is compressible, spontaneous, phasic, competent and demonstrates normal competent and demonstrates normal augmentation. augmentation. POP V is compressible, spontaneous, phasic, POP V is compressible, spontaneous, phasic, competent and demonstrates normal competent and demonstrates normal augmentation. augmentation. T/P Trunk is compressible. T/P Trunk is compressible. PTV is compressible. PTV is compressible. RT PerV is compressible. LT PerV is compressible. SFJ is competent and measures 0.63 x 0.74 cm. SFJ is competent and measures 0.61 x 0.58 cm. GSV proximal thigh measures 0.41 x 0.45 cm. GSV proximal thigh measures 0.56 x 0.56 cm. GSV at knee measures 0.37 x 0.39 cm. GSV at knee measures 0.38 x 0.43 cm. GSV is competent throughout. GSV is competent throughout. SSV proximal calf is competent and measures SSV proximal calf is competent and measures 0.13 x 0.15 cm. 0.32 x 0.31 cm. Procedure Exam performed in department. A preliminary report was called and/or faxed to . Interpretation Summary Deep veins of the lower extremities are bilaterally patent and compressible segmentally. There is no evidence of deep vein thrombosis on either side. Valvular competence appears intact within the proximal deep venous systems bilaterally. The great saphenous veins appear bilaterally patent and compressible segmentally. Sapheno-femoral junctions are bilaterally competent . Valvular competence appears to be intact segmentally within the great saphenous veins bilaterally. Small saphenous veins are patent and competent bilaterally. Ordering Physician: Rgei Muller Referring Physician: Cali Lopez Chi Performed By: Alba Ott RVT
[2019-04-23 10:36] VITALS: BP 115/68; PULSE 82; RESP 18; TEMP 37; BMI 33.2
--- NOTE | 2019-04-23 11:16 | PCM.WC.PN ---
(1) Venous insufficiency Status: Suspected Current Visit: Yes Code(s): I87.2 - Venous insufficiency (chronic) (peripheral) (2) Ulcer of left lower extremity with fat layer exposed Status: Resolved Current Visit: Yes Code(s): L97.922 - Non-pressure chronic ulcer of unspecified part of left lower leg with fat layer exposed (3) Edema of both lower extremities Status: Chronic Current Visit: Yes Code(s): R60.0 - Localized edema (4) Ulcer of right lower extremity with fat layer exposed Status: Resolved Current Visit: Yes Code(s): L97.912 - Non-pressure chronic ulcer of unspecified part of right lower leg with fat layer exposed (5) Diabetes mellitus, type 2 Status: Chronic Current Visit: Yes Code(s): E11.9 - Type 2 diabetes mellitus without complications (6) Mental retardation Status: Chronic Current Visit: Yes Code(s): F79 - Unspecified intellectual disabilities Type of Wound Date of Service: 04/23/19 Chief Complaint: leg ulcers bilateral History of Wound: This is a 54-year-old white male with cognitive impairment who is a [facility] a [facility]. He follows up for bilateral leg ulcer care. He denies fever, chill, nausea, vomiting. He denies distinct pain. He denies burning or tingling. Progress of Wound: Healed - Physical Exam Vital Signs Temp Pulse Resp BP 98.6 F 82 18 115/68 04/23/19 10:36 04/23/19 10:36 04/23/19 10:36 04/23/19 10:36 General: Alert, Oriented x3, Cooperative, No apparent distress Extremities: No cyanosis, Capillary Refill Less than 3 Seconds, No Calf Tenderness, Diminished Peripheral Pulses, Edema Skin: Ulcer/ Wound - No purulence, erythema, streaking, odor, infection. Full epithelialization is noted to bilateral lower extremities and there are no ulcers today. His skin however is atrophic and with hyperpigmentation. There is no induration or bogginess to palpate Wound Measurements and Assessment WC - Nurse 1 - General Ulcer Measurement Start: 04/02/19 14:17 Freq: Status: Active Protocol: Activity Type Activity Date Activity User E-Sign Co-Sign Detail Recorded Client Recorded Date Recorded By Document 04/23/19 10:36 DL [id number] 04/23/19 10:44 DL 04/23/19 10:36 Wound Center Nurse 1 [Ulcer Assessment] 4-right tubbs -Current Size (cm) - Length 0.1 -Current Size (cm) - Width 0.1 -Current Size (cm) - Depth 0.1 -Total Square Cm 0.01 -Photo Taken No -Exudate Amt None Present -Wound Margin Flat & Intact -Granulation Amt Large (67-100%) -Granulation Quality Antlers -Necrosis Amt None Present (0 %) -Structure Exposed N/A -Texture (Morenita-wound Skin Appearance) Scarring -Moisture (Morenita-wound Skin Appearance No Abnormality ) -Color (Morenita-wound Skin Appearance) Hemosiderin Staining,Rubor -Temperature ([place]nita-wound Skin No Abnormality Appearance) (Pt Warm) -Tenderness on Palpation (Morenita-wound No Skin Appearance) -Ulcer Cleansing Rinsed/ Irrigated with Saline -Foul Odor after Cleansing No #3 L Tubbs -Current Size (cm) - Length 0.1 -Current Size (cm) - Width 0.1 -Current Size (cm) - Depth 0.1 -Total Square Cm 0.01 -Photo Taken No -Exudate Amt None Present -Wound Margin Flat & Intact -Granulation Amt Large (67-100%) -Granulation Quality Antlers -Necrosis Amt None Present (0 %) -Structure Exposed N/A -Texture (Morenita-wound Skin Appearance) Scarring -Moisture ([place]ita-wound Skin Appearance No Abnormality ) -Color (Morenita-wound Skin Appearance) Rubor -Temperature ([place]-wound Skin No Abnormality Appearance) (Pt Warm) -Tenderness on Palpation (Morenita-wound No Skin Appearance) -Ulcer Cleansing Rinsed/ Irrigated with Saline -Foul Odor after Cleansing No [Edema Assessment] -Right Calf (cm) 35.5 -Right Ankle (cm) 22.5 -Left Calf (cm) 35 -Left Ankle (cm) 22.5 WC - Nurse 2 - General Ulcer CM Notes Start: 04/02/19 14:17 Freq: Status: Active Protocol: Activity Type Activity Date Activity User E-Sign Co-Sign Detail Recorded Client Recorded Date Recorded By Document 04/23/19 11:04 AN [id number] 04/23/19 11:05 AN 04/23/19 11:04 Pain Scale: 0-10 Numeric [Pain] -Is Patient Pain Free? Yes Musculoskeletal: No Tenderness to Palpation of Joints or Extremities, Muscle Wasting Neurological: Sensory exam intact to light touch and pain Psych/Mental Status: Normal Affect, Appropriate Debridement Note Post-Debridement Measurements/Treatment WC - Nurse 2 - General Ulcer CM Notes Start: 04/02/19 14:17 Freq: Status: Active Protocol: Activity Type Activity Date Activity User E-Sign Co-Sign Detail Recorded Client Recorded Date Recorded By Document 04/02/19 15:15 AN [id number] 04/02/19 15:16 AN Document 04/16/19 10:38 AN [id number] 04/16/19 10:39 AN Document 04/23/19 11:04 AN [id number] 04/23/19 11:05 AN 04/02/19 04/16/19 04/23/19 15:15 10:38 11:04 Wound Center Nurse 2 4-right tubbs -Time 10:38 -Correct Patient Yes -Correct Side, Site, Position Yes -Correct Procedure Yes -Procedure Performed Yes -Type of Procedure Debridement -Clinical Debridement Subcutaneous -Post Debridement Size (cm) - Length 2.0 -Post Debridement Size (cm) - Width 1.5 -Post Debridement Size (cm) - Depth 0.1 -Total Square Cm 3.00 -Wound/Ulcer Outcome Not Healed -Ulcer Cleansing Rinsed/ Irrigated with Saline -Foul Odor after Cleansing No -Bioengineered Tissue No -Bleeding Controlled with Pressure -Offloading No -Treatment Response Procedure Tolerated Well #3 L Tubbs -Time 15:16 10:39 -Correct Patient Yes Yes -Correct Side, Site, Position Yes Yes -Correct Procedure Yes Yes -Procedure Performed Yes Yes -Type of Procedure Debridement Debridement -Clinical Debridement Subcutaneous Subcutaneous -Post Debridement Size (cm) - Length 0.6 0.7 -Post Debridement Size (cm) - Width 0.7 0.9 -Post Debridement Size (cm) - Depth 0.1 0.1 -Total Square Cm 0.42 0.63 -Wound/Ulcer Outcome Not Healed Not Healed -Ulcer Cleansing Rinsed/ Rinsed/ Irrigated with Irrigated with Saline Saline -Foul Odor after Cleansing No No -Bioengineered Tissue No No -Bleeding Controlled with Pressure Pressure -Offloading No -Treatment Response Procedure Procedure Tolerated Well Tolerated Well Pain Scale: 0-10 Numeric Is Patient Pain Free? Yes Yes Wound debrided: bilateral legs No debridement was completed today - healed Assessment/Plan Active Problems Edema of both lower extremities (Chronic) Diabetes mellitus, type 2 (Chronic) Mental retardation (Chronic) Assessment: Ulcer left and right legs healed today. Diabetes history. Lower extremity edema. Venous insufficiency suspected. Malnutrition suspected Plan: I reviewed and discussed his case today. Debridement was not performed today because the ulcer sites have healed. He is reassured no signs of infection noted today. To discontinue dressing care and nutritional supplementation because the ulcer site is healed. Additional lab work and diagnostic data including venous duplex Doppler were ordered today. Labs were reviewed at the clinic and he does not have leukocytosis or other gross abnormalities. His prealbumin was within the normal range however was on the lower end. It is noted he had a previous venous duplex Doppler with reflux evaluation performed approximately 5 years ago which were normal at that time. This updated test results are still pending and it is noted he did have the procedure performed earlier this morning. Once the results are available I will review. To return to the wound healing center in 1 week or call sooner if he is any questions or concerns.
== END 2019-04-26 23:59 ==
LOC: WC 10:15
PROVIDERS: Family Provider Family Medicine Geriatric Medicine; PCP Family Medicine Geriatric Medicine; Referring Provider Nurse Practitioner Family; Visit Provider Nurse Practitioner Family
DX: E11.622 Type 2 diabetes mellitus with other skin ulcer (principal); F79 Unspecified intellectual disabilities; L97.812 Non-pressure chronic ulcer of other part of right lower leg with fat layer exposed; I87.2 Venous insufficiency (chronic) (peripheral); R60.0 Localized edema; E78.5 Hyperlipidemia, unspecified; F32.9 Major depressive disorder, single episode, unspecified; Z79.899 Other long term (current) drug therapy; Z79.4 Long term (current) use of insulin; F17.200 Nicotine dependence, unspecified, uncomplicated
CPT/HCPCS: 11042; 36415; 80053; 84134; 85025; 93970; 99212; G0463

== ENCOUNTER → 2019-04-24 08:45 | Outpatient (CLI) | payer MEDICARE, MEDICAID, SELFPAY ==
[2019-04-23 10:36] VITALS: BMI 33.2
[2019-04-24 12:17] LABS: Absolute Lymphocyte Count 1.63 X10^3/uL (0.83-4.51); Absolute Neutrophil Count 3.6 X10^3/uL (2.0-7.7); Basophil# 0.05 X10^3/uL; Basophil% 0.8 % (0-1); Eosinophil# 0.09 X10^3/uL; Eosinophils% 1.5 % (0-5); Hematocrit 45.3 % (40-54); Hemoglobin 14.8 g/dL (13.0-16.5); Lymphocyte # 1.63 X10^3/ul (4.0); Lymphocyte % 27.2 % (19-41); Mean Corp Hgb Conc 32.7 g/dL (32-36); Mean Corpuscular Hgb 30.2 pg (27.0-32.0); Mean Corpuscular Volume 92.4 fL (80-94); Mean Platelet Vol. 11.3 fl (6.2-12.0); Monocyte# 0.63 X10^3/uL; Monocyte% 10.5 % (0-10); NRBC Flagged by Analyzer 0 % (0-5); Neutrophil # 3.58 X10^3/uL (2.7-7.7); Neutrophil % 59.8 % (47-70); Platelet Count 177 K/mm3 (150-450); RBC Distribution Width CV 14.7 % (11.6-14.6); RBC Distribution Width SD 49.6 fl (35.1-43.9)
[2019-04-24 12:36] LABS: ALB/GLOB Ratio 0.9 RATIO (0.9-2.4); AST(SGOT) 10 U/L (15-37); Alanine Aminotransfer ALT/SGPT 26 U/L (16-61); Albumin, Serum 3.6 g/dL (3.2-5.0); Alkaline Phosphatase 64 U/L (45-117); Anion Gap 10 (5-15); BUN 20 mg/dL (7-18); Calcium,Total 8.5 mg/dL (8.5-10.1); Chloride 104 mmol/L (98-107); Creatinine, Serum 1.25 mg/dL (0.70-1.30); EST Glomerular Filtration Rate 64 mL/min (>60); Est Glom Filt Rate - Afr Amer 77 mL/min (>60); Globulin 3.8 g/dL (2.2-4.2); Glucose 184 mg/dL (74-106); Protein, Total 7.4 g/dL (6.4-8.2); Sodium Level 138 mmol/L (136-145); Thyroid Stim Hormone (TSH) 1.21 uIU/mL (0.358-3.74)
== END ==
PROVIDERS: Family Provider Family Medicine Geriatric Medicine; PCP Family Medicine Geriatric Medicine; Visit Provider Family Medicine Geriatric Medicine
DX: E11.9 Type 2 diabetes mellitus without complications (principal); I10 Essential (primary) hypertension
CPT/HCPCS: 36415; 80053; 84443; 85025

== ENCOUNTER 2019-04-30 11:15 | Outpatient (RCR) | payer MEDICARE, MEDICAID, SELFPAY ==
[2019-04-27 00:06] VITALS: BP 115/68; PULSE 82; RESP 18; TEMP 37
[2019-04-30 10:50] VITALS: BP 132/78; PULSE 82; RESP 18; TEMP 37.6; BMI 33.2
--- NOTE | 2019-04-30 11:09 | PCM.WC.PN ---
(1) Edema of both lower extremities Status: Chronic Current Visit: Yes Code(s): R60.0 - Localized edema (2) Ulcer of left lower extremity with fat layer exposed Status: Resolved Current Visit: Yes Code(s): L97.922 - Non-pressure chronic ulcer of unspecified part of left lower leg with fat layer exposed Type of Wound Date of Service: 04/30/19 Chief Complaint: leg ulcers bilateral History of Wound: This is a 54-year-old white male with cognitive impairment who is a resident of a shelter. He follows up for bilateral leg ulcer care. He denies fever, chill, nausea, vomiting. He denies distinct pain. He denies burning or tingling. He is with his caregiver today. He would like to review his vein studies today. Progress of Wound: Healed - Physical Exam Vital Signs Temp Pulse Resp BP 99.6 F H 82 18 132/78 H 04/30/19 10:50 04/30/19 10:50 04/30/19 10:50 04/30/19 10:50 General: Alert, Oriented x3, Cooperative, No apparent distress HEENT: Atraumatic Extremities: No cyanosis, Capillary Refill Less than 3 Seconds, No Calf Tenderness - Negative Abimael and Rashid sign, Diminished Peripheral Pulses, Edema - Mild bilateral lower extremities Skin: Ulcer/ Wound - Full epithelialization is noted there are no longer any ulcers. There is continued hyperpigmentation to the leg. His skin is hairless and atrophic Wound Measurements and Assessment WC - Nurse 1 - General Ulcer Measurement Start: 04/30/19 10:49 Freq: Status: Active Protocol: Activity Type Activity Date Activity User E-Sign Co-Sign Detail Recorded Client Recorded Date Recorded By Document 04/30/19 10:50 MT [id number] 04/30/19 10:52 SD 04/30/19 10:50 Wound Center Nurse 1 [Edema Assessment] -Lower Limb Edema Present Yes -Right Calf (cm) 33.5 -Right Ankle (cm) 23 -Left Calf (cm) 35 -Left Ankle (cm) 23 WC - Nurse 2 - General Ulcer CM Notes Start: 04/30/19 10:49 Freq: Status: Active Protocol: Activity Type Activity Date Activity User E-Sign Co-Sign Detail Recorded Client Recorded Date Recorded By Document 04/30/19 11:05 AN [id number] 04/30/19 11:06 AN 04/30/19 11:05 Pain Scale: 0-10 Numeric [Pain] -Is Patient Pain Free? Yes Musculoskeletal: No Tenderness to Palpation of Joints or Extremities, Muscle Wasting, - - No palpation, Bilateral Psych/Mental Status: Normal Affect, Appropriate Debridement Note Post-Debridement Measurements/Treatment WC - Nurse 2 - General Ulcer CM Notes Start: 04/30/19 10:49 Freq: Status: Active Protocol: Activity Type Activity Date Activity User E-Sign Co-Sign Detail Recorded Client Recorded Date Recorded By Document 04/30/19 11:05 AN [id number] 04/30/19 11:06 AN 04/30/19 11:05 Pain Scale: 0-10 Numeric Is Patient Pain Free? Yes No debridement was completed today Assessment/Plan Active Problems Edema of both lower extremities (Chronic) Assessment: Ulcer left and right legs healed. Diabetes history. Lower extremity edema. Venous insufficiency suspected. Malnutrition suspected Plan: I reviewed and discussed his case today. No debridement was performed today because the ulcer sites are healed. To discontinue dressing care. He is reassured no signs of infection noted today. To maintain good skin integrity with eucerin lotion application daily. Additional lab work and diagnostic data including venous duplex Doppler were ordered and reviewed. The veins are competent however his lower extremity edema and hyperpigmentation continues. I recommend continued compression stocking use of 20-30 mmHg. To perform periodic leg elevation as well each hour. Labs were reviewed at the clinic and he does not have leukocytosis or other gross abnormalities. His prealbumin was within the normal range however was on the lower end. He is discharged from the wound healing center at this time and has done well. To [facility] for [facility] care and diabetic foot screenings. Answered all of his questions as well as his caregiver's questions.
== END 2019-05-26 23:59 ==
LOC: WC 11:15
PROVIDERS: Family Provider Family Medicine Geriatric Medicine; PCP Family Medicine Geriatric Medicine; Referring Provider Nurse Practitioner Family; Visit Provider Nurse Practitioner Family
DX: R60.0 Localized edema (principal)
CPT/HCPCS: 99212; G0463

== ENCOUNTER → 2019-06-13 11:25 | Outpatient (CLI) | payer MEDICARE, MEDICAID, SELFPAY ==
[2019-06-13 13:54] LABS: M R Staph aureus DNA By PCR Negative (Negative); Probe Check PASS; Specimen Processing Control PASS; Staph aureus DNA By PCR NEGATIVE (Negative)
== END ==
PROVIDERS: Family Provider Family Medicine Geriatric Medicine; PCP Family Medicine Geriatric Medicine; Visit Provider Family Medicine Geriatric Medicine
DX: B95.62 Methicillin resistant Staphylococcus aureus infection as the cause of diseases classified elsewhere (principal)
CPT/HCPCS: 87070; 87205; 87640

== ENCOUNTER → 2019-06-26 10:31 | Outpatient (CLI) | payer MEDICARE, MEDICAID, SELFPAY ==
--- NOTE | 2019-06-26 10:36 | VDUE_ITS ---
Reason For Study: edema Right Proximal Left Proximal Right jugular vein is spontaneous, widely Left jugular vein is spontaneous, widely patent, phasic, with no intraluminal patent, phasic, with no intraluminal echogenicity noted. echogenicity noted. Right subclavian vein is spontaneous, widely Left subclavian vein is spontaneous, widely patent, phasic, with no intraluminal patent, phasic, with no intraluminal echogenicity noted. echogenicity noted. Right Lower Arm Left Arm Right radial vein is compressible. Left axillary vein is spontaneous, patent, Right ulnar vein is compressible. phasic, competent, compressible and Right Arm demonstrates augmentation. Right axillary vein is spontaneous, patent, Left brachial vein is compressible. phasic, competent, compressible and Left cephalic vein is compressible. demonstrates augmentation. Left basilic vein is compressible. Right brachial vein is compressible. Left Lower Arm Right cephalic vein is compressible. Left radial vein is compressible. Right basilic vein is compressible. Left ulnar vein is compressible. Prelim called to Dr. Lopez's office. Interpretation Summary Deep veins of the upper extremities are bilaterally patent and compressible segmentally. There is no evidence of deep vein thrombosis on either side. The superficial veins of the upper extremities, the basilic and cephalic veins, are patent and compressible bilaterally. There is no evidence of upper extremity superficial thrombophlebitis on either side involving the veins imaged. Ordering Physician: Cali Lopez Performed By: Ray Frazier RVT ?
--- NOTE | 2019-06-26 11:07 | RAD_ITS ---
STUDY: X-RAY - RIGHT ELBOW REASON FOR EXAM: Male, 54 years old. Pain TECHNIQUE: 3 view(s) of the elbow. COMPARISON: August 08, 2016 FINDINGS: Normal visualized humerus, radius and ulna. Mild arthritic changes of the radiocapitellar and ulnotrochlear articulations Small olecranon spur is noted. Mild irregularity of the medial humeral condyle The soft tissue structures are unremarkable. RAD/Elbow min 3 Views IMPRESSION: Mild degenerative changes. No acute fracture or dislocation Electronically Signed: Joseph Hopper MD at 21:48 EDT , Service support ,
--- NOTE | 2019-06-26 11:07 | RAD_ITS ---
STUDY: X-RAY - RIGHT WRIST REASON FOR EXAM: Male, 54 years old. Pain TECHNIQUE: 3 view(s) of the wrist were obtained. COMPARISON: August 15, 2016. FINDINGS: Normal visualized distal radius and ulna. Narrowed radiocarpal articulation. Normal distal radioulnar articulation. Normal carpal bones. Normal carpal articulations. Normal carpometacarpal articulation of the thumb. Normal second through fifth carpometacarpal articulations. Normal visualized metacarpal bones. The soft tissue structures are unremarkable. No significant change since prior exam RAD/Wrist min 3 Views IMPRESSION: Mild degenerative change. No acute fracture or dislocation Electronically Signed: Joseph Hopper MD at 23:03 EDT , Service support ,
--- NOTE | 2019-06-26 11:07 | RAD_ITS ---
STUDY: X-RAY - RIGHT SHOULDER REASON FOR EXAM: Pain. TECHNIQUE: 4 view(s) of the shoulder. COMPARISON: Radiographs 10/19/2016 and 08/08/2016. FINDINGS: There is chondrocalcinosis of the humeral head as on the prior study. There is mild acromioclavicular arthrosis. Normal acromion. There is chronic healed fracture deformity of the humeral neck. There is myositis ossificans extending from the anterior scapula/coracoid to the medial humeral neck as on the prior study. There is also a small soft tissue ossification at the lateral aspect of the proximal humeral diaphysis as on the prior study. Normal visualized pulmonary apex. RAD/Shoulder min 2 Views IMPRESSION: Myositis ossificans as on the prior study. Mild acromioclavicular arthrosis. Chronic healed fracture deformity of the humeral neck. Electronically Signed: Contreras Avitia MD at 11:47 EDT Tel , Service support ,
== END ==
PROVIDERS: Family Provider Family Medicine Geriatric Medicine; PCP Family Medicine Geriatric Medicine; Referring Provider Family Medicine Geriatric Medicine; Visit Provider Family Medicine Geriatric Medicine
DX: R60.0 Localized edema (principal); M79.609 Pain in unspecified limb; M25.539 Pain in unspecified wrist
CPT/HCPCS: 73030; 73080; 73110; 93970

== ENCOUNTER → 2019-07-23 11:31 | Outpatient (CLI) | payer MEDICARE, MEDICAID, SELFPAY ==
[2019-07-23 12:34] LABS: Absolute Lymphocyte Count 1.82 X10^3/uL (0.83-4.51); Absolute Neutrophil Count 4.6 X10^3/uL (2.0-7.7); Basophil# 0.07 X10^3/uL; Eosinophil# 0.08 X10^3/uL; Eosinophils% 1.1 % (0-5); Hematocrit 46.4 % (40-54); Hemoglobin 15.8 g/dL (13.0-16.5); Lymphocyte # 1.82 X10^3/ul (4.0); Lymphocyte % 25.5 % (19-41); Mean Corp Hgb Conc 34.1 g/dL (32-36); Mean Corpuscular Hgb 31.5 pg (27.0-32.0); Mean Corpuscular Volume 92.4 fL (80-94); Mean Platelet Vol. 11.9 fl (6.2-12.0); Monocyte# 0.58 X10^3/uL; Monocyte% 8.1 % (0-10); NRBC Flagged by Analyzer 0 % (0-5); Neutrophil # 4.57 X10^3/uL (2.7-7.7); Neutrophil % 63.9 % (47-70); Platelet Count 185 K/mm3 (150-450); RBC Distribution Width CV 14.1 % (11.6-14.6); RBC Distribution Width SD 47.9 fl (35.1-43.9); Red Blood Count 5.02 M/mm3 (4.6-6.2); White Blood Count 7.2 K/mm3 (4.4-11.0)
[2019-07-23 13:05] LABS: ALB/GLOB Ratio 0.9 RATIO (0.9-2.4); AST(SGOT) 8 U/L (15-37); Alanine Aminotransfer ALT/SGPT 22 U/L (16-61); Albumin, Serum 3.6 g/dL (3.2-5.0); Alkaline Phosphatase 64 U/L (45-117); Anion Gap 11 (5-15); BUN 17 mg/dL (7-18); BUN/Creat Ratio 16.7 RATIO (10-20); Calcium,Total 8.8 mg/dL (8.5-10.1); Chloride 104 mmol/L (98-107); Creatinine, Serum 1.02 mg/dL (0.70-1.30); EST Glomerular Filtration Rate 81 mL/min (>60); Est Glom Filt Rate - Afr Amer 98 mL/min (>60); Glucose 133 mg/dL (74-106); Potassium 4.2 mmol/L (3.5-5.1); Protein, Total 7.6 g/dL (6.4-8.2); Sodium Level 136 mmol/L (136-145); Uric Acid 3.7 mg/dL (3.5-7.2)
== END ==
PROVIDERS: Family Provider Family Medicine Geriatric Medicine; PCP Family Medicine Geriatric Medicine; Visit Provider Family Medicine Geriatric Medicine
DX: E11.9 Type 2 diabetes mellitus without complications (principal); I10 Essential (primary) hypertension; M10.9 Gout, unspecified
CPT/HCPCS: 36415; 80053; 84443; 84550; 85025

== ENCOUNTER → 2019-10-21 10:04 | Outpatient (CLI) | payer MEDICARE, MEDICAID, SELFPAY ==
[2019-10-21 12:37] LABS: Absolute Lymphocyte Count 1.47 X10^3/uL (0.83-4.51); Absolute Neutrophil Count 3.8 X10^3/uL (2.0-7.7); Basophil# 0.05 X10^3/uL; Basophil% 0.8 % (0-1); Eosinophil# 0.07 X10^3/uL; Eosinophils% 1.2 % (0-5); Hematocrit 45.2 % (40-54); Lymphocyte # 1.47 X10^3/ul (4.0); Lymphocyte % 24.8 % (19-41); Mean Corp Hgb Conc 33.2 g/dL (32-36); Mean Corpuscular Hgb 31.6 pg (27.0-32.0); Mean Corpuscular Volume 95.2 fL (80-94); Mean Platelet Vol. 11.6 fl (6.2-12.0); Monocyte# 0.55 X10^3/uL; Monocyte% 9.3 % (0-10); NRBC Flagged by Analyzer 0 % (0-5); Neutrophil # 3.76 X10^3/uL (2.7-7.7); Neutrophil % 63.4 % (47-70); Platelet Count 179 K/mm3 (150-450); RBC Distribution Width CV 13.5 % (11.6-14.6); RBC Distribution Width SD 47.6 fl (35.1-43.9); Red Blood Count 4.75 M/mm3 (4.6-6.2); White Blood Count 5.9 K/mm3 (4.4-11.0)
[2019-10-21 13:00] LABS: ALB/GLOB Ratio 0.9 RATIO (0.9-2.4); AST(SGOT) 11 U/L (15-37); Alanine Aminotransfer ALT/SGPT 21 U/L (16-61); Albumin, Serum 3.7 g/dL (3.2-5.0); Alkaline Phosphatase 55 U/L (45-117); Anion Gap 10 (5-15); BUN 18 mg/dL (7-18); BUN/Creat Ratio 16.2 RATIO (10-20); Calcium,Total 8.9 mg/dL (8.5-10.1); Chloride 102 mmol/L (98-107); Creatinine, Serum 1.11 mg/dL (0.70-1.30); EST Glomerular Filtration Rate 73 mL/min (>60); Est Glom Filt Rate - Afr Amer 89 mL/min (>60); Globulin 3.9 g/dL (2.2-4.2); Glucose 134 mg/dL (74-106); Potassium 4.1 mmol/L (3.5-5.1); Protein, Total 7.6 g/dL (6.4-8.2); Sodium Level 136 mmol/L (136-145); Thyroid Stim Hormone (TSH) 1.22 uIU/mL (0.358-3.74); Uric Acid 3.7 mg/dL (3.5-7.2)
== END ==
PROVIDERS: PCP Family Medicine Geriatric Medicine; Visit Provider Family Medicine Geriatric Medicine
DX: E11.9 Type 2 diabetes mellitus without complications (principal); M10.9 Gout, unspecified
CPT/HCPCS: 36415; 80053; 84443; 84550; 85025

== ENCOUNTER → 2020-01-05 07:57 | Outpatient (CLI) | payer MEDICARE, MEDICAID, SELFPAY ==
--- NOTE | 2020-01-05 08:11 | VDLE_ITS ---
Reason For Study: Varicose veins RIGHT LEFT CFV is compressible, spontaneous, phasic, CFV is compressible, spontaneous, phasic, competent and demonstrates normal competent, and demonstrates normal augmentation. augmentation. FV is compressible, spontaneous, phasic, FV is compressible, spontaneous, phasic, competent and demonstrates normal competent and demonstrates normal augmentation. augmentation. POP V is compressible, spontaneous, phasic, POP V is compressible, spontaneous, phasic, competent and demonstrates normal competent and demonstrates normal augmentation. augmentation. T/P Trunk is compressible. T/P Trunk is compressible. PTV is compressible. PTV is compressible. RT PerV is compressible. LT PerV is compressible. SFJ is competent and measures 0.71 x 0.72 cm. SFJ is competent and measures 0.62 x 0.58 cm. GSV proximal thigh measures 0.37 x 0.39 cm. GSV proximal thigh measures 0.47 x 0.52 cm. GSV above knee is competent. GSV above knee is competent. GSV at knee measures 0.42 x 0.44 cm. GSV at knee measures 0.43 x 0.43 cm. GSV below knee is INCOMPETENT for greater GSV below knee is INCOMPETENT for greater than 0.5 seconds. than 0.5 seconds. SSV at junction is competent and measures ASV proximal calf is INCOMPETENT for greater 0.19 x 0.19 cm. than 0.5 seconds and measures 0.22 x 0.22 cm. SSV at junction is competent and measures 0.32 x 0.32 cm. Interpretation Summary Bilateral no DVT. Bilateral calf GSV with reflux. Ordering Physician: Tc Dodge Referring Physician: Cali Lopez Chi Performed By: Alba Ott RVT
== END ==
PROVIDERS: PCP Family Medicine Geriatric Medicine; Referring Provider Surgery Vascular Surgery; Visit Provider Surgery Vascular Surgery
DX: I87.2 Venous insufficiency (chronic) (peripheral) (principal); I83.893 Varicose veins of bilateral lower extremities with other complications
CPT/HCPCS: 93970

== ENCOUNTER → 2020-01-22 11:54 | Outpatient (CLI) | payer MEDICARE, MEDICAID, SELFPAY ==
[2020-01-22 12:47] LABS: Absolute Lymphocyte Count 1.87 X10^3/uL (0.83-4.51); Absolute Neutrophil Count 3.9 X10^3/uL (2.0-7.7); Basophil# 0.07 X10^3/uL; Basophil% 1.1 % (0-1); Eosinophil# 0.14 X10^3/uL; Eosinophils% 2.2 % (0-5); Hemoglobin 15.1 g/dL (13.0-16.5); Lymphocyte # 1.87 X10^3/ul (4.0); Lymphocyte % 28.8 % (19-41); Mean Corp Hgb Conc 33.6 g/dL (32-36); Mean Corpuscular Hgb 31.5 pg (27.0-32.0); Mean Corpuscular Volume 93.8 fL (80-94); Mean Platelet Vol. 11.8 fl (6.2-12.0); Monocyte# 0.53 X10^3/uL; Monocyte% 8.2 % (0-10); NRBC Flagged by Analyzer 0 % (0-5); Neutrophil # 3.87 X10^3/uL (2.7-7.7); Neutrophil % 59.4 % (47-70); Platelet Count 198 K/mm3 (150-450); RBC Distribution Width CV 13.4 % (11.6-14.6); White Blood Count 6.5 K/mm3 (4.4-11.0)
[2020-01-22 13:29] LABS: AST(SGOT) 15 U/L (15-37); Alanine Aminotransfer ALT/SGPT 24 U/L (16-61); Albumin, Serum 3.8 g/dL (3.2-5.0); Alkaline Phosphatase 51 U/L (45-117); Anion Gap 8 (5-15); BUN 20 mg/dL (7-18); BUN/Creat Ratio 21.9 RATIO (10-20); Calcium,Total 9.1 mg/dL (8.5-10.1); Chloride 107 mmol/L (98-107); Creatinine, Serum 0.91 mg/dL (0.70-1.30); EST Glomerular Filtration Rate 92 mL/min (>60); Est Glom Filt Rate - Afr Amer 111 mL/min (>60); Globulin 3.9 g/dL (2.2-4.2); Glucose 86 mg/dL (74-106); Potassium 4.1 mmol/L (3.5-5.1); Protein, Total 7.7 g/dL (6.4-8.2); Sodium Level 139 mmol/L (136-145); Thyroid Stim Hormone (TSH) 2.19 uIU/mL (0.358-3.74); Uric Acid 4.1 mg/dL (3.5-7.2)
== END ==
PROVIDERS: PCP Family Medicine Geriatric Medicine; Visit Provider Family Medicine Geriatric Medicine
DX: E11.9 Type 2 diabetes mellitus without complications (principal); I10 Essential (primary) hypertension; M10.9 Gout, unspecified
CPT/HCPCS: 36415; 80053; 84443; 84550; 85025

== ENCOUNTER → 2020-04-27 15:18 | Outpatient (CLI) | payer MEDICARE, MEDICAID, SELFPAY ==
[2020-04-27 15:46] LABS: Absolute Lymphocyte Count 1.65 X10^3/uL (0.83-4.51); Absolute Neutrophil Count 3.1 X10^3/uL (2.0-7.7); Basophil# 0.04 X10^3/uL; Basophil% 0.8 % (0-1); Eosinophil# 0.07 X10^3/uL; Eosinophils% 1.3 % (0-5); Hematocrit 40.8 % (40-54); Lymphocyte # 1.65 X10^3/ul (4.0); Mean Corp Hgb Conc 34.3 g/dL (32-36); Mean Corpuscular Hgb 32.9 pg (27.0-32.0); Mean Platelet Vol. 11.9 fl (6.2-12.0); Monocyte% 9.4 % (0-10); NRBC Flagged by Analyzer 0 % (0-5); Neutrophil # 3.05 X10^3/uL (2.7-7.7); Neutrophil % 57.3 % (47-70); Platelet Count 158 K/mm3 (150-450); RBC Distribution Width CV 13.8 % (11.6-14.6); RBC Distribution Width SD 47.7 fl (35.1-43.9); Red Blood Count 4.25 M/mm3 (4.6-6.2); White Blood Count 5.3 K/mm3 (4.4-11.0)
[2020-04-27 16:21] LABS: AST(SGOT) 11 U/L (15-37); Alanine Aminotransfer ALT/SGPT 23 U/L (16-61); Albumin, Serum 3.8 g/dL (3.2-5.0); Alkaline Phosphatase 48 U/L (45-117); Anion Gap 6 (5-15); BUN 20 mg/dL (7-18); BUN/Creat Ratio 20.1 RATIO (10-20); Calcium,Total 9.2 mg/dL (8.5-10.1); Chloride 106 mmol/L (98-107); Creatinine, Serum 0.99 mg/dL (0.70-1.30); EST Glomerular Filtration Rate 83 mL/min (>60); Est Glom Filt Rate - Afr Amer 101 mL/min (>60); Globulin 3.8 g/dL (2.2-4.2); Glucose 125 mg/dL (74-106); PSA,Total - Annual Screen 0.34 ng/mL (0.00-4.00); Protein, Total 7.6 g/dL (6.4-8.2); Sodium Level 140 mmol/L (136-145); Thyroid Stim Hormone (TSH) 1.66 uIU/mL (0.358-3.74); Uric Acid 4.1 mg/dL (3.5-7.2)
== END ==
PROVIDERS: PCP Family Medicine Geriatric Medicine; Visit Provider Family Medicine Geriatric Medicine
DX: E11.9 Type 2 diabetes mellitus without complications (principal); M10.9 Gout, unspecified; Z12.5 Encounter for screening for malignant neoplasm of prostate
CPT/HCPCS: 36415; 80053; 84153; 84443; 84550; 85025; G0103

== ENCOUNTER → 2020-06-04 17:22 | Outpatient (CLI) | payer MEDICARE, MEDICAID, SELFPAY | PROVIDERS: PCP Family Medicine Geriatric Medicine; Referring Provider Family Medicine Geriatric Medicine; Visit Provider Family Medicine Geriatric Medicine | DX: R50.9 Fever, unspecified (principal) | CPT/HCPCS: 87633; 87635; C9803; U0003 ==

== ENCOUNTER → 2020-08-18 13:22 | Outpatient (CLI) | payer MEDICARE, MEDICAID, SELFPAY ==
[2020-08-18 17:28] LABS: M R Staph aureus DNA By PCR Negative (Negative); Probe Check PASS; Specimen Processing Control PASS; Staph aureus DNA By PCR POSITIVE (Negative)
== END ==
LOC: POLAB3 13:24 → LABSPEC 13:25
PROVIDERS: PCP Family Medicine Geriatric Medicine; Visit Provider Family Medicine Geriatric Medicine
DX: L03.116 Cellulitis of left lower limb (principal); B95.62 Methicillin resistant Staphylococcus aureus infection as the cause of diseases classified elsewhere
CPT/HCPCS: 87070; 87077; 87186; 87205; 87640

== ENCOUNTER → 2020-11-01 10:19 | Outpatient (CLI) | payer MEDICARE, MEDICAID, SELFPAY ==
[2020-11-01 12:26] LABS: Absolute Lymphocyte Count 1.62 X10^3/uL (0.83-4.51); Absolute Neutrophil Count 2.4 X10^3/uL (2.0-7.7); Basophil# 0.04 X10^3/uL; Basophil% 0.9 % (0-1); Eosinophil# 0.06 X10^3/uL; Eosinophils% 1.3 % (0-5); Hematocrit 43.7 % (40-54); Hemoglobin 14.2 g/dL (13.0-16.5); Lymphocyte # 1.62 X10^3/ul (4.0); Lymphocyte % 35.9 % (19-41); Mean Corp Hgb Conc 32.5 g/dL (32-36); Mean Corpuscular Hgb 30.6 pg (27.0-32.0); Mean Corpuscular Volume 94.2 fL (80-94); Mean Platelet Vol. 11.9 fl (6.2-12.0); Monocyte# 0.42 X10^3/uL; Monocyte% 9.3 % (0-10); NRBC Flagged by Analyzer 0 % (0-5); Neutrophil # 2.36 X10^3/uL (2.7-7.7); Neutrophil % 52.4 % (47-70); Platelet Count 174 K/mm3 (150-450); RBC Distribution Width CV 13.7 % (11.6-14.6); RBC Distribution Width SD 47.8 fl (35.1-43.9); Red Blood Count 4.64 M/mm3 (4.6-6.2); White Blood Count 4.5 K/mm3 (4.4-11.0)
[2020-11-01 13:04] LABS: AST(SGOT) 14 U/L (15-37); Alanine Aminotransfer ALT/SGPT 25 U/L (16-61); Albumin, Serum 3.8 g/dL (3.2-5.0); Alkaline Phosphatase 47 U/L (45-117); Anion Gap 8 (5-15); BUN 17 mg/dL (7-18); BUN/Creat Ratio 17.4 RATIO (10-20); Chloride 104 mmol/L (98-107); Creatinine, Serum 0.98 mg/dL (0.70-1.30); EST Glomerular Filtration Rate 84 mL/min (>60); Est Glom Filt Rate - Afr Amer 102 mL/min (>60); Globulin 3.7 g/dL (2.2-4.2); Glucose 130 mg/dL (74-106); Potassium 4.3 mmol/L (3.5-5.1); Protein, Total 7.5 g/dL (6.4-8.2); Sodium Level 138 mmol/L (136-145); Thyroid Stim Hormone (TSH) 1.48 uIU/mL (0.358-3.74)
== END ==
PROVIDERS: PCP Family Medicine Geriatric Medicine; Visit Provider Family Medicine Geriatric Medicine
DX: I10 Essential (primary) hypertension (principal); E11.9 Type 2 diabetes mellitus without complications
CPT/HCPCS: 36415; 80053; 84443; 85025

== ENCOUNTER → 2020-11-15 10:52 | Outpatient (CLI) | payer MEDICARE, MEDICAID, SELFPAY ==
--- NOTE | 2020-11-15 10:57 | RAD_ITS ---
INDICATION: RIB PAIN EXAMINATION/TECHNIQUE: X-RAY - XR Ribs Unilateral W/ PA Chest Min 3 Views COMPARISON: None. FINDINGS: SOFT TISSUES: No soft tissue swelling or gas. BONES: No displaced rib fracture. Myositis ossificans extending from the anterior scapula/coracoid to the medial humeral neck as on the prior study. VISUALIZED LUNGS: Clear. No pneumothorax. RAD/Ribs Uni Min 3V w/PA Chest IMPRESSION: No evidence of displaced rib fracture. Electronically Signed: Kirit Rosen MD at 19:44 EDT Tel , Service support ,
== END ==
PROVIDERS: PCP Family Medicine Geriatric Medicine; Referring Provider Family Medicine Geriatric Medicine; Visit Provider Family Medicine Geriatric Medicine
DX: R07.89 Other chest pain (principal)
CPT/HCPCS: 71101

== ENCOUNTER → 2021-02-15 09:22 | Outpatient (CLI) | payer MEDICARE, MEDICAID, SELFPAY ==
[2021-02-15 12:39] LABS: Absolute Lymphocyte Count 1.52 X10^3/uL (0.83-4.51); Basophil# 0.03 X10^3/uL; Basophil% 0.6 % (0-1); Eosinophil# 0.05 X10^3/uL; Hematocrit 41.6 % (40-54); Hemoglobin 13.7 g/dL (13.0-16.5); Lymphocyte # 1.52 X10^3/ul (0.83-4.51); Lymphocyte % 29.7 % (19-41); Mean Corp Hgb Conc 32.9 g/dL (32-36); Mean Corpuscular Hgb 31.2 pg (27.0-32.0); Mean Corpuscular Volume 94.8 fL (80-94); Mean Platelet Vol. 11.7 fl (6.2-12.0); Monocyte% 9.8 % (0-10); NRBC Flagged by Analyzer 0 % (0-5); Neutrophil % 58.7 % (47-70); Platelet Count 169 K/mm3 (150-450); RBC Distribution Width CV 13.2 % (11.6-14.6); RBC Distribution Width SD 46.6 fl (35.1-43.9); Red Blood Count 4.39 M/mm3 (4.6-6.2); White Blood Count 5.1 K/mm3 (4.4-11.0)
[2021-02-15 13:29] LABS: ALB/GLOB Ratio 1.3 RATIO (0.9-2.4); AST(SGOT) 11 U/L (15-37); Alanine Aminotransfer ALT/SGPT 17 U/L (16-61); Albumin, Serum 3.9 g/dL (3.2-5.0); Alkaline Phosphatase 51 U/L (45-117); Anion Gap 8 (5-15); BUN 15 mg/dL (7-18); BUN/Creat Ratio 16.9 RATIO (10-20); Chloride 104 mmol/L (98-107); Creatinine, Serum 0.89 mg/dL (0.70-1.30); EST Glomerular Filtration Rate 94 mL/min (>60); Est Glom Filt Rate - Afr Amer 114 mL/min (>60); Globulin 3.1 g/dL (2.2-4.2); Glucose 86 mg/dL (74-106); Potassium 4.1 mmol/L (3.5-5.1); Sodium Level 141 mmol/L (136-145); Thyroid Stim Hormone (TSH) 1.48 uIU/mL (0.358-3.74); Uric Acid 3.1 mg/dL (3.5-7.2)
== END ==
PROVIDERS: PCP Family Medicine Geriatric Medicine; Referring Provider Family Medicine Geriatric Medicine; Visit Provider Family Medicine Geriatric Medicine
DX: I10 Essential (primary) hypertension (principal); M10.9 Gout, unspecified; E11.9 Type 2 diabetes mellitus without complications
CPT/HCPCS: 36415; 80053; 84443; 84550; 85025

== ENCOUNTER → 2021-04-28 11:23 | Outpatient (CLI) | payer MEDICARE, MEDICAID, SELFPAY ==
[2021-04-28 12:39] LABS: Absolute Lymphocyte Count 1.68 X10^3/uL (0.83-4.51); Absolute Neutrophil Count 4.4 X10^3/uL (2.0-7.7); Basophil# 0.05 X10^3/uL; Basophil% 0.7 % (0-1); Eosinophil# 0.03 X10^3/uL; Eosinophils% 0.4 % (0-5); Hematocrit 43.4 % (40-54); Hemoglobin 14.4 g/dL (13.0-16.5); Lymphocyte # 1.68 X10^3/ul (0.83-4.51); Lymphocyte % 24.8 % (19-41); Mean Corp Hgb Conc 33.2 g/dL (32-36); Mean Corpuscular Hgb 31.5 pg (27.0-32.0); Mean Platelet Vol. 11.5 fl (6.2-12.0); Monocyte# 0.58 X10^3/uL; Monocyte% 8.6 % (0-10); NRBC Flagged by Analyzer 0 % (0-5); Neutrophil # 4.43 X10^3/uL (2.7-7.7); Neutrophil % 65.4 % (47-70); Platelet Count 165 K/mm3 (150-450); RBC Distribution Width CV 13.8 % (11.6-14.6); Red Blood Count 4.57 M/mm3 (4.6-6.2); White Blood Count 6.8 K/mm3 (4.4-11.0)
[2021-04-28 13:23] LABS: AST(SGOT) 11 U/L (15-37); Alanine Aminotransfer ALT/SGPT 18 U/L (16-61); Albumin, Serum 3.8 g/dL (3.2-5.0); Alkaline Phosphatase 46 U/L (45-117); Anion Gap 9 (5-15); BUN 22 mg/dL (7-18); BUN/Creat Ratio 25.8 RATIO (10-20); Calcium,Total 9.1 mg/dL (8.5-10.1); Chloride 105 mmol/L (98-107); Creatinine, Serum 0.85 mg/dL (0.70-1.30); EST Glomerular Filtration Rate 99 mL/min (>60); Est Glom Filt Rate - Afr Amer 119 mL/min (>60); Globulin 3.7 g/dL (2.2-4.2); Glucose 89 mg/dL (74-106); PSA,Total - Annual Screen 0.62 ng/mL (0.00-4.00); Protein, Total 7.5 g/dL (6.4-8.2); Sodium Level 139 mmol/L (136-145); Thyroid Stim Hormone (TSH) 0.97 uIU/mL (0.358-3.74); Uric Acid 3.4 mg/dL (3.5-7.2)
== END ==
PROVIDERS: PCP Family Medicine Geriatric Medicine; Visit Provider Family Medicine Geriatric Medicine
DX: I10 Essential (primary) hypertension (principal); E11.9 Type 2 diabetes mellitus without complications; M10.9 Gout, unspecified; Z12.5 Encounter for screening for malignant neoplasm of prostate
CPT/HCPCS: 36415; 80053; 84153; 84443; 84550; 85025; G0103

== ENCOUNTER → 2021-05-10 08:27 | Outpatient (CLI) | payer MEDICARE, MEDICAID, SELFPAY ==
--- NOTE | 2021-05-10 21:11 | PFTCOMP ---
COMPLETE PULMONARY FUNCTION TEST INTERPRETATION Brief HPI: Patient is a 56 year old male, currently under the care of Dr. Lopez, who presents to [facility] for complete pulmonary function tests secondary to diagnosis of dyspnea. Respiratory therapist reports good effort and reproducible results. Interpretation: Forced expiration spirometry shows no large airways obstructive ventilatory defect with an FEV1 of 70% predicted. There is no significant bronchodilator response by strict ATS criteria. Spirograms are of good quality and plateau normally. The respiratory flow volume loop shows a normal pattern. Lung volumes by body plethysmography show a decreased total lung capacity at 4.67 L, 78% predicted. All other lung volumes are reduced symmetrically. Diffusion capacity by carbon monoxide is normal at 89% predicted. The airway resistance is normal. No previous pulmonary function tests were available for review. Impression: Irreversible mild restrictive ventilatory defect with preserved diffusion capacity
== END ==
PROVIDERS: PCP Family Medicine Geriatric Medicine; Referring Provider Family Medicine Geriatric Medicine; Visit Provider Family Medicine Geriatric Medicine
DX: R06.02 Shortness of breath (principal)
CPT/HCPCS: 94060; 94726; 94729

== ENCOUNTER → 2021-06-22 10:50 | Outpatient (CLI) | payer MEDICARE, MEDICAID, SELFPAY ==
[2021-06-22 14:39] LABS: M R Staph aureus DNA By PCR Negative (Negative); Probe Check PASS; Specimen Processing Control PASS; Staph aureus DNA By PCR NEGATIVE (Negative)
== END ==
PROVIDERS: PCP Family Medicine Geriatric Medicine; Visit Provider Family Medicine Geriatric Medicine
DX: L03.116 Cellulitis of left lower limb (principal); B95.62 Methicillin resistant Staphylococcus aureus infection as the cause of diseases classified elsewhere
CPT/HCPCS: 87070; 87205; 87640

== ENCOUNTER → 2021-08-03 10:35 | Outpatient (CLI) | payer MEDICARE, MEDICAID, SELFPAY ==
[2021-08-03 12:38] LABS: Absolute Lymphocyte Count 1.52 X10^3/uL (0.83-4.51); Absolute Neutrophil Count 3.6 X10^3/uL (2.0-7.7); Basophil# 0.04 X10^3/uL; Basophil% 0.7 % (0-1); Eosinophil# 0.04 X10^3/uL; Eosinophils% 0.7 % (0-5); Hematocrit 46.6 % (40-54); Hemoglobin 15.3 g/dL (13.0-16.5); Lymphocyte # 1.52 X10^3/ul (0.83-4.51); Lymphocyte % 26.6 % (19-41); Mean Corp Hgb Conc 32.8 g/dL (32-36); Mean Corpuscular Hgb 30.6 pg (27.0-32.0); Mean Corpuscular Volume 93.2 fL (80-94); Mean Platelet Vol. 11.8 fl (6.2-12.0); Monocyte# 0.53 X10^3/uL; Monocyte% 9.3 % (0-10); NRBC Flagged by Analyzer 0 % (0-5); Neutrophil # 3.56 X10^3/uL (2.7-7.7); Neutrophil % 62.3 % (47-70); Platelet Count 189 K/mm3 (150-450); RBC Distribution Width CV 13.6 % (11.6-14.6); RBC Distribution Width SD 46.6 fl (35.1-43.9); White Blood Count 5.7 K/mm3 (4.4-11.0)
[2021-08-03 13:16] LABS: AST(SGOT) 12 U/L (15-37); Alanine Aminotransfer ALT/SGPT 21 U/L (16-61); Albumin, Serum 3.8 g/dL (3.2-5.0); Alkaline Phosphatase 49 U/L (45-117); Anion Gap 11 (5-15); BUN 17 mg/dL (7-18); BUN/Creat Ratio 19.6 RATIO (10-20); Calcium,Total 9.4 mg/dL (8.5-10.1); Chloride 102 mmol/L (98-107); Creatinine, Serum 0.87 mg/dL (0.70-1.30); EST Glomerular Filtration Rate 96 mL/min (>60); Est Glom Filt Rate - Afr Amer 117 mL/min (>60); Globulin 3.9 g/dL (2.2-4.2); Glucose 103 mg/dL (74-106); Potassium 4.1 mmol/L (3.5-5.1); Protein, Total 7.7 g/dL (6.4-8.2); Sodium Level 139 mmol/L (136-145); Thyroid Stim Hormone (TSH) 0.92 uIU/mL (0.358-3.74)
== END ==
PROVIDERS: PCP Family Medicine Geriatric Medicine; Visit Provider Family Medicine Geriatric Medicine
DX: E11.9 Type 2 diabetes mellitus without complications (principal); I10 Essential (primary) hypertension
CPT/HCPCS: 36415; 80053; 84443; 85025

== ENCOUNTER 2021-11-02 08:58 | Outpatient (CLI) | payer MEDICARE, MEDICAID, SELFPAY ==
[2021-11-02 12:05] LABS: Absolute Lymphocyte Count 1.43 X10^3/uL (0.83-4.51); Absolute Neutrophil Count 3.9 X10^3/uL (2.0-7.7); Basophil# 0.04 X10^3/uL; Basophil% 0.7 % (0-1); Eosinophil# 0.07 X10^3/uL; Eosinophils% 1.2 % (0-5); Hematocrit 44.8 % (40-54); Hemoglobin 15.5 g/dL (13.0-16.5); Lymphocyte # 1.43 X10^3/ul (0.83-4.51); Lymphocyte % 23.9 % (19-41); Mean Corp Hgb Conc 34.6 g/dL (32-36); Mean Corpuscular Hgb 31.6 pg (27.0-32.0); Mean Corpuscular Volume 91.4 fL (80-94); Mean Platelet Vol. 11.9 fl (6.2-12.0); Monocyte# 0.52 X10^3/uL; Monocyte% 8.7 % (0-10); NRBC Flagged by Analyzer 0 % (0-5); Neutrophil # 3.91 X10^3/uL (2.7-7.7); Neutrophil % 65.3 % (47-70); Platelet Count 180 K/mm3 (150-450); RBC Distribution Width CV 13.4 % (11.6-14.6); RBC Distribution Width SD 45.5 fl (35.1-43.9)
[2021-11-02 12:25] LABS: ALB/GLOB Ratio 1.1 RATIO (0.9-2.4); AST(SGOT) 10 U/L (15-37); Alanine Aminotransfer ALT/SGPT 17 U/L (16-61); Albumin, Serum 3.9 g/dL (3.2-5.0); Alkaline Phosphatase 50 U/L (45-117); Anion Gap 8 (5-15); BUN 14 mg/dL (7-18); BUN/Creat Ratio 16.5 RATIO (10-20); Calcium,Total 9.1 mg/dL (8.5-10.1); Chloride 104 mmol/L (98-107); Creatinine, Serum 0.85 mg/dL (0.70-1.30); EST Glomerular Filtration Rate 99 mL/min (>60); Est Glom Filt Rate - Afr Amer 119 mL/min (>60); Globulin 3.7 g/dL (2.2-4.2); Glucose 98 mg/dL (74-106); Potassium 4.1 mmol/L (3.5-5.1); Protein, Total 7.6 g/dL (6.4-8.2); Sodium Level 138 mmol/L (136-145); Thyroid Stim Hormone (TSH) 0.95 uIU/mL (0.358-3.74); Uric Acid 4.1 mg/dL (3.5-7.2)
== END 2021-11-02 23:59 | disposition home or self-care (01) ==
LOC: POLAB3 09:00
PROVIDERS: PCP Family Medicine Geriatric Medicine; Visit Provider Family Medicine Geriatric Medicine
DX: E11.9 Type 2 diabetes mellitus without complications (principal); I10 Essential (primary) hypertension; M10.9 Gout, unspecified
CPT/HCPCS: 36415; 80053; 84443; 84550; 85025

== ENCOUNTER → 2022-02-01 | Outpatient (CLI) | payer MEDICARE, MEDICAID, SELFPAY ==
[2022-02-01 12:02] LABS: Absolute Lymphocyte Count 1.82 X10^3/uL (0.83-4.51); Absolute Neutrophil Count 3.2 X10^3/uL (2.0-7.7); Basophil# 0.05 X10^3/uL; Basophil% 0.9 % (0-1); Eosinophil# 0.07 X10^3/uL; Eosinophils% 1.2 % (0-5); Hematocrit 42.1 % (40-54); Hemoglobin 14.2 g/dL (13.0-16.5); Lymphocyte # 1.82 X10^3/ul (0.83-4.51); Lymphocyte % 31.7 % (19-41); Mean Corp Hgb Conc 33.7 g/dL (32-36); Mean Corpuscular Hgb 30.9 pg (27.0-32.0); Mean Corpuscular Volume 91.5 fL (80-94); Mean Platelet Vol. 12.3 fl (6.2-12.0); Monocyte# 0.55 X10^3/uL; Monocyte% 9.6 % (0-10); NRBC Flagged by Analyzer 0 % (0-5); Neutrophil # 3.23 X10^3/uL (2.7-7.7); Neutrophil % 56.3 % (47-70); Platelet Count 154 K/mm3 (150-450); RBC Distribution Width CV 13.1 % (11.6-14.6); RBC Distribution Width SD 43.7 fl (35.1-43.9); White Blood Count 5.7 K/mm3 (4.4-11.0)
[2022-02-01 12:27] LABS: ALB/GLOB Ratio 1.1 RATIO (0.9-2.4); AST(SGOT) 10 U/L (15-37); Alanine Aminotransfer ALT/SGPT 18 U/L (16-61); Albumin, Serum 3.8 g/dL (3.2-5.0); Alkaline Phosphatase 48 U/L (45-117); Anion Gap 9 (5-15); BUN 19 mg/dL (7-18); Calcium,Total 9.2 mg/dL (8.5-10.1); Chloride 104 mmol/L (98-107); Creatinine, Serum 0.79 mg/dL (0.70-1.30); EST Glomerular Filtration Rate 107 mL/min (>60); Est Glom Filt Rate - Afr Amer 130 mL/min (>60); Globulin 3.5 g/dL (2.2-4.2); Glucose 99 mg/dL (74-106); Potassium 3.9 mmol/L (3.5-5.1); Protein, Total 7.3 g/dL (6.4-8.2); Sodium Level 139 mmol/L (136-145); Thyroid Stim Hormone (TSH) 1.35 uIU/mL (0.358-3.74)
== END | disposition home or self-care (01) ==
LOC: POLAB3 09:33
PROVIDERS: PCP Family Medicine Geriatric Medicine; Visit Provider Family Medicine Geriatric Medicine
DX: I10 Essential (primary) hypertension (principal); E11.9 Type 2 diabetes mellitus without complications; M10.9 Gout, unspecified
CPT/HCPCS: 36415; 80053; 84443; 84550; 85025

== ENCOUNTER → 2022-05-25 | Outpatient (CLI) | payer MEDICARE, MEDICAID, SELFPAY ==
[2022-05-25 17:00] LABS: Absolute Lymphocyte Count 1.46 X10^3/uL (0.83-4.51); Absolute Neutrophil Count 3.8 X10^3/uL (2.0-7.7); Basophil# 0.06 X10^3/uL; Eosinophil# 0.07 X10^3/uL; Eosinophils% 1.2 % (0-5); Hematocrit 38.9 % (40-54); Hemoglobin 13.7 g/dL (13.0-16.5); Lymphocyte # 1.46 X10^3/ul (0.83-4.51); Lymphocyte % 24.2 % (19-41); Mean Corp Hgb Conc 35.2 g/dL (32-36); Mean Corpuscular Hgb 31.9 pg (27.0-32.0); Mean Corpuscular Volume 90.5 fL (80-94); Mean Platelet Vol. 11.8 fl (6.2-12.0); Monocyte# 0.59 X10^3/uL; Monocyte% 9.8 % (0-10); NRBC Flagged by Analyzer 0 % (0-5); Neutrophil # 3.84 X10^3/uL (2.7-7.7); Neutrophil % 63.6 % (47-70); Platelet Count 186 K/mm3 (150-450); RBC Distribution Width CV 12.9 % (11.6-14.6); RBC Distribution Width SD 42.6 fl (35.1-43.9)
[2022-05-25 17:26] LABS: AST(SGOT) 10 U/L (15-37); Alanine Aminotransfer ALT/SGPT 24 U/L (16-61); Albumin, Serum 3.5 g/dL (3.2-5.0); Alkaline Phosphatase 55 U/L (45-117); Anion Gap 8 (5-15); BUN 15 mg/dL (7-18); BUN/Creat Ratio 18.3 RATIO (10-20); Calcium,Total 8.9 mg/dL (8.5-10.1); Chloride 104 mmol/L (98-107); Creatinine, Serum 0.82 mg/dL (0.70-1.30); EST Glomerular Filtration Rate 103 mL/min (>60); Est Glom Filt Rate - Afr Amer 124 mL/min (>60); Globulin 3.6 g/dL (2.2-4.2); Glucose 152 mg/dL (74-106); PSA,Total - Annual Screen 0.59 ng/mL (0.00-4.00); Protein, Total 7.1 g/dL (6.4-8.2); Sodium Level 138 mmol/L (136-145); Thyroid Stim Hormone (TSH) 1.23 uIU/mL (0.358-3.74); Uric Acid 4.2 mg/dL (3.5-7.2)
== END | disposition home or self-care (01) ==
PROVIDERS: PCP Family Medicine Geriatric Medicine; Visit Provider Family Medicine Geriatric Medicine
DX: I10 Essential (primary) hypertension (principal); E11.9 Type 2 diabetes mellitus without complications; M10.9 Gout, unspecified; Z12.5 Encounter for screening for malignant neoplasm of prostate
CPT/HCPCS: 36415; 80053; 84153; 84443; 84550; 85025; G0103

== ENCOUNTER → 2022-11-23 | Outpatient (CLI) | payer MEDICARE, MEDICAID, SELFPAY ==
--- NOTE | 2022-11-23 15:30 | RAD_ITS ---
INDICATION: R KNEE PAIN EXAMINATION/TECHNIQUE: X-RAY - RIGHT XR Knee 3 Views 3 VIEWS COMPARISON: None. FINDINGS: SOFT TISSUES: No soft tissue swelling or gas. No radiopaque foreign body. BONES/JOINTS: No acute fracture or subluxation.. Normal alignment. Preservation of the joint space.. No sclerotic or destructive changes observed. RAD/Knee 3 Views IMPRESSION: Negative. Electronically Signed: Del Rdz MD at 16:26 EDT ,
[2022-11-23 17:23] LABS: Absolute Lymphocyte Count 2.04 X10^3/uL (0.83-4.51); Absolute Neutrophil Count 5.1 X10^3/uL (2.0-7.7); Basophil# 0.05 X10^3/uL; Basophil% 0.6 % (0-1); Eosinophil# 0.09 X10^3/uL; Eosinophils% 1.1 % (0-5); Hematocrit 46.2 % (40-54); Hemoglobin 15.6 g/dL (13.0-16.5); Lymphocyte # 2.04 X10^3/ul (0.83-4.51); Lymphocyte % 25.4 % (19-41); Mean Corp Hgb Conc 33.8 g/dL (32-36); Mean Corpuscular Hgb 31.3 pg (27.0-32.0); Mean Corpuscular Volume 92.8 fL (80-94); Mean Platelet Vol. 11.8 fl (6.2-12.0); Monocyte% 8.7 % (0-10); NRBC Flagged by Analyzer 0 % (0-5); Neutrophil # 5.13 X10^3/uL (2.7-7.7); Platelet Count 200 K/mm3 (150-450); RBC Distribution Width CV 13.1 % (11.6-14.6); RBC Distribution Width SD 44.7 fl (35.1-43.9); Red Blood Count 4.98 M/mm3 (4.6-6.2)
[2022-11-23 17:47] LABS: ALB/GLOB Ratio 0.9 RATIO (0.9-2.4); AST(SGOT) 28 U/L (15-37); Alanine Aminotransfer ALT/SGPT 58 U/L (16-61); Albumin, Serum 3.7 g/dL (3.2-5.0); Alkaline Phosphatase 67 U/L (45-117); Anion Gap 6 (5-15); BUN 19 mg/dL (7-18); BUN/Creat Ratio 20.6 RATIO (10-20); Calcium,Total 9.1 mg/dL (8.5-10.1); Chloride 103 mmol/L (98-107); Cholesterol 188 mg/dL (200); Creatinine, Serum 0.92 mg/dL (0.70-1.30); EST Glomerular Filtration Rate 90 mL/min (>60); Est Glom Filt Rate - Afr Amer 108 mL/min (>60); Glucose 215 mg/dL (74-106); High Density Lipoprotein 48 mg/dL; Potassium 4.1 mmol/L (3.5-5.1); Protein, Total 7.7 g/dL (6.4-8.2); Sodium Level 136 mmol/L (136-145); Triglycerides 234 mg/dL; Very Low Density Lipoprotein 47 mg/dL (5-40)
[2022-11-23 17:57] LABS: Hemoglobin A1c 7.1 % (3.8-5.6)
== END | disposition home or self-care (01) ==
LOC: LAB.FUTURE 14:35 → RAD 15:25
PROVIDERS: PCP Family Medicine Geriatric Medicine; Referring Provider Family Medicine Geriatric Medicine; Visit Provider Family Medicine Geriatric Medicine
DX: E78.5 Hyperlipidemia, unspecified (principal); E11.9 Type 2 diabetes mellitus without complications; R53.83 Other fatigue; M25.561 Pain in right knee
CPT/HCPCS: 36415; 73562; 80053; 80061; 83036; 84443; 85025

== ENCOUNTER → 2023-03-02 | Outpatient (CLI) | payer MEDICARE, MEDICAID, SELFPAY ==
--- NOTE | 2023-03-02 11:25 | RAD_ITS ---
EXAM: XR CHEST, 2 VIEWS CLINICAL INDICATION: COUGH, UNSPECIFIED TECHNIQUE: Frontal and lateral views of the chest. COMPARISON: Multiple exams back to August 29, 2016. FINDINGS: LUNGS AND PLEURAL SPACES: No infiltrates or effusions. Minimal chronic lung changes. Flowing ossification at multiple anterior thoracic levels similar to 2017. No pneumothorax. HEART: Unremarkable. Cardiac silhouette not enlarged. MEDIASTINUM: Central airways and mediastinal contour are unremarkable. BONES/JOINTS: There is similar large and dense ossification projecting over the scapula and medial to the proximal humerus on the right compared to 2017. There are 2 chronic-appearing right sixth and seventh rib fractures with callus, new from 2017, there was a ribs series in 2020. SOFT TISSUES: Unremarkable. RAD/Chest PA and Lateral IMPRESSION: No acute intrathoracic abnormality. Electronically Signed: Cydney Beyer MD at 8:49 EDT Reading Location ID and State: [facility] / [place] Tel , Service support ,
[2023-03-02 15:19] LABS: Probe Check PASS; Specimen Processing Control PASS
== END | disposition home or self-care (01) ==
LOC: PSN 11:04
PROVIDERS: PCP Family Medicine Geriatric Medicine; Referring Provider Family Medicine Geriatric Medicine; Visit Provider Family Medicine Geriatric Medicine
DX: R05.9 Cough, unspecified (principal); R68.83 Chills (without fever)
CPT/HCPCS: 71046; 87635; 87804; 87807; C9803

== ENCOUNTER → 2023-05-31 | Outpatient (CLI) | payer MEDICARE, MEDICAID, SELFPAY ==
[2023-05-31 16:42] LABS: Absolute Lymphocyte Count 1.69 X10^3/uL (0.83-4.51); Absolute Neutrophil Count 3.6 X10^3/uL (2.0-7.7); Basophil# 0.07 X10^3/uL; Basophil% 1.2 % (0-1); Eosinophil# 0.13 X10^3/uL; Eosinophils% 2.2 % (0-5); Hematocrit 42.8 % (40-54); Hemoglobin 14.5 g/dL (13.0-16.5); Lymphocyte # 1.69 X10^3/ul (0.83-4.51); Mean Corp Hgb Conc 33.9 g/dL (32-36); Mean Corpuscular Hgb 30.9 pg (27.0-32.0); Mean Corpuscular Volume 91.1 fL (80-94); Mean Platelet Vol. 11.6 fl (6.2-12.0); Monocyte# 0.55 X10^3/uL; Monocyte% 9.1 % (0-10); NRBC Flagged by Analyzer 0 % (0-5); Neutrophil # 3.57 X10^3/uL (2.7-7.7); Neutrophil % 59.2 % (47-70); Platelet Count 206 K/mm3 (150-450); RBC Distribution Width CV 12.6 % (11.6-14.6); RBC Distribution Width SD 41.6 fl (35.1-43.9)
[2023-05-31 17:02] LABS: ALB/GLOB Ratio 0.8 RATIO (0.9-2.4); AST(SGOT) 6 U/L (15-37); Alanine Aminotransfer ALT/SGPT 19 U/L (16-61); Albumin, Serum 3.3 g/dL (3.2-5.0); Alkaline Phosphatase 78 U/L (45-117); Anion Gap 6 (5-15); BUN 17 mg/dL (7-18); BUN/Creat Ratio 15.9 RATIO (10-20); Calcium,Total 8.7 mg/dL (8.5-10.1); Chloride 103 mmol/L (98-107); Cholesterol 158 mg/dL (200); Creatinine, Serum 1.07 mg/dL (0.70-1.30); EST Glomerular Filtration Rate 75 mL/min (>60); Est Glom Filt Rate - Afr Amer 91 mL/min (>60); Globulin 4.1 g/dL (2.2-4.2); Glucose 271 mg/dL (74-106); High Density Lipoprotein 49 mg/dL; PSA,Total - Annual Screen 0.61 ng/mL (0.00-4.00); Potassium 4.1 mmol/L (3.5-5.1); Protein, Total 7.4 g/dL (6.4-8.2); Sodium Level 137 mmol/L (136-145); Thyroid Stim Hormone (TSH) 1.08 uIU/mL (0.358-3.74); Triglycerides 132 mg/dL; Very Low Density Lipoprotein 26 mg/dL (5-40)
[2023-05-31 17:31] LABS: Microalbumin,Random Urine 34.2 mg/L (NO RANGE EST.)
== END | disposition home or self-care (01) ==
LOC: POLAB3 15:16
PROVIDERS: PCP Family Medicine Geriatric Medicine; Visit Provider Family Medicine Geriatric Medicine
DX: E11.65 Type 2 diabetes mellitus with hyperglycemia (principal); I10 Essential (primary) hypertension; Z12.5 Encounter for screening for malignant neoplasm of prostate
CPT/HCPCS: 36415; 80053; 80061; 82043; 84153; 84443; 85025; G0103

== ENCOUNTER → 2023-06-29 | Outpatient (CLI) | payer MEDICARE, MEDICAID, SELFPAY ==
[2023-06-29 14:07] LABS: Vitamin D,25 Hydroxy 53.7 ng/mL
[2023-06-29 14:22] LABS: ALB/GLOB Ratio 0.9 RATIO (0.9-2.4); AST(SGOT) 7 U/L (15-37); Alanine Aminotransfer ALT/SGPT 17 U/L (16-61); Albumin, Serum 3.5 g/dL (3.2-5.0); Alkaline Phosphatase 65 U/L (45-117); Anion Gap 7 (5-15); BUN 14 mg/dL (7-18); BUN/Creat Ratio 16.9 RATIO (10-20); Chloride 105 mmol/L (98-107); Cholesterol 173 mg/dL (200); Creatinine, Serum 0.83 mg/dL (0.70-1.30); EST Glomerular Filtration Rate 101 mL/min (>60); Est Glom Filt Rate - Afr Amer 122 mL/min (>60); Globulin 3.8 g/dL (2.2-4.2); Glucose 155 mg/dL (74-106); High Density Lipoprotein 46 mg/dL; Protein, Total 7.3 g/dL (6.4-8.2); Sodium Level 139 mmol/L (136-145); Thyroid Stim Hormone (TSH) 1.01 uIU/mL (0.358-3.74); Triglycerides 132 mg/dL; Very Low Density Lipoprotein 26 mg/dL (5-40)
[2023-06-29 18:20] LABS: Absolute Neutrophil Count 3.4 X10^3/uL (2.0-7.7); Basophil# 0.07 X10^3/uL; Basophil% 1.3 % (0-1); Eosinophil# 0.04 X10^3/uL; Eosinophils% 0.7 % (0-5); Hematocrit 44.1 % (40-54); Hemoglobin 14.9 g/dL (13.0-16.5); Lymphocyte % 25.9 % (19-41); Mean Corp Hgb Conc 33.8 g/dL (32-36); Mean Corpuscular Hgb 30.3 pg (27.0-32.0); Mean Corpuscular Volume 89.8 fL (80-94); Mean Platelet Vol. 11.3 fl (6.2-12.0); Monocyte# 0.45 X10^3/uL; Monocyte% 8.3 % (0-10); NRBC Flagged by Analyzer 0 % (0-5); Neutrophil # 3.44 X10^3/uL (2.7-7.7); Neutrophil % 63.6 % (47-70); Platelet Count 194 K/mm3 (150-450); RBC Distribution Width CV 12.8 % (11.6-14.6); Red Blood Count 4.91 M/mm3 (4.6-6.2); White Blood Count 5.4 K/mm3 (4.4-11.0)
== END | disposition home or self-care (01) ==
LOC: MFPLAB 11:14
PROVIDERS: PCP Family Medicine; Visit Provider Family Medicine
DX: R41.82 Altered mental status, unspecified (principal); E11.65 Type 2 diabetes mellitus with hyperglycemia; E55.9 Vitamin D deficiency, unspecified; Z72.0 Tobacco use
CPT/HCPCS: 36415; 80053; 80061; 82306; 84443; 85025

== ENCOUNTER 2023-10-02 13:05 | Emergency (ER) | payer MEDICARE, MEDICAID, SELFPAY ==
[2023-10-02 13:10] VITALS: BP 132/112; PULSE 65; RESP 12; TEMP 37; O2SAT 100; BMI 27.1
[2023-10-02] MEDS: 0.9% Normal Saline (500mL Bag) 500 ML 999 ML IV (13:39)
[2023-10-02 13:48] LABS: Absolute Lymphocyte Count 1.87 X10^3/uL (0.83-4.51); Absolute Neutrophil Count 4.3 X10^3/uL (2.0-7.7); Basophil# 0.07 X10^3/uL; Eosinophil# 0.15 X10^3/uL; Eosinophils% 2.1 % (0-5); Hematocrit 43.5 % (40-54); Hemoglobin 14.7 g/dL (13.0-16.5); Lymphocyte # 1.87 X10^3/ul (0.83-4.51); Lymphocyte % 26.4 % (19-41); Mean Corp Hgb Conc 33.8 g/dL (32-36); Mean Corpuscular Hgb 30.9 pg (27.0-32.0); Mean Corpuscular Volume 91.4 fL (80-94); Mean Platelet Vol. 11.1 fl (6.2-12.0); Monocyte# 0.66 X10^3/uL; Monocyte% 9.3 % (0-10); NRBC Flagged by Analyzer 0 % (0-5); Neutrophil # 4.29 X10^3/uL (2.7-7.7); Neutrophil % 60.8 % (47-70); Platelet Count 205 K/mm3 (150-450); RBC Distribution Width CV 14.2 % (11.6-14.6); RBC Distribution Width SD 47.5 fl (35.1-43.9); Red Blood Count 4.76 M/mm3 (4.6-6.2); White Blood Count 7.1 K/mm3 (4.4-11.0)
[2023-10-02 14:05] LABS: Anion Gap 5 (5-15); BUN 17 mg/dL (7-18); Calcium,Total 9.3 mg/dL (8.5-10.1); Chloride 105 mmol/L (98-107); Creatinine, Serum 0.81 mg/dL (0.70-1.30); EST Glomerular Filtration Rate 104 mL/min (>60); Est Glom Filt Rate - Afr Amer 126 mL/min (>60); Estimated Creatinine Clearance 93.49 ml/min; Glucose 117 mg/dL (74-106); Potassium 3.9 mmol/L (3.5-5.1); Sodium Level 136 mmol/L (136-145)
--- NOTE | 2023-10-02 15:38 | EX.ED.DYSGE1 ---
HPI <Arlene Lopez RN - Last Filed: 10/02/23 16:55> History of Present Illness Chief Complaint: Headache Informant: patient and family Onset/Context/Timing Onset: Today Context: Sudden Onset Current Severity: 8/10 Maximum Severity: 8/10 Worsened by: Nothing Relieved by: Nothing Associated Symptoms Associated Symptoms: Cough, nausea Narrative Narrative: Patient to the ED via EMS for diaphoresis and headache. Patient reports he woke up with a headache today. Describes headache as being generalized throbbing. Has not taken anything for headache. While at work he started to not feel well became diaphoretic. Reports they took his blood pressure at work with it being 150/80. EMS checked blood glucose reported as 127. Patient reports diarrhea yesterday and nausea today. Reports weakness. Denies vomiting. Denies changes in appetite. Prior similar symptoms: No Recent Illness/Hospitalization: No PFSH <Arlene Lopez RN - Last Filed: 10/02/23 16:55> PFSH Medical History COVID-19 Hypertension Home Medications metformin 1,000 mg 24 hr tablet,extended release (gastric reten.) 500 mg PO BID 09/27/16 [History Last Taken Unknown] cephalexin 500 mg capsule 500 mg PO Q6 #40 caps 08/06/18 [Rx Last Taken Unknown] empagliflozin 25 mg tablet (Jardiance) 25 mg PO DAILY 08/06/18 [History Last Taken Unknown] warfarin 5 mg tablet (Jantoven) 5 mg PO DAILY@1700 08/06/18 [History Last Taken Unknown] bupropion HCl (smoking deter) 150 mg tablet,12 hr sustained-release(smoking deterrent) 150 mg PO BID 08/13/18 [History Last Taken Unknown] clotrimazole-betamethasone 1 %-0.05 % topical cream 1 applic topical BID PRN Itching 08/13/18 [History Last Taken Unknown] ergocalciferol (vitamin D2) 1,250 mcg (50,000 unit) capsule (Vitamin D2) 1 unit PO QMONTH 08/13/18 [History Last Taken Unknown] nicotine 14 mg/24 hr daily transdermal patch 21 mg transdermal DAILY 08/13/18 [History Last Taken Unknown] polyethylene glycol 3350 17 gram oral powder packet 17 g PO DAILY 08/13/18 [History Last Taken Unknown] clindamycin HCl 150 mg capsule 300 mg (2 x 150 mg) PO 4X/DAY #80 caps 03/28/19 [Rx Last Taken Unknown] nirmatrelvir 300 mg (150 mg x2)-ritonavir 100 mg tablet,dose pack (Paxlovid) See Rx Instructions PO .COMPLEX #30 tabs 06/01/22 [Rx Last Taken Unknown] Allergy/AdvReac Type Severity Reaction Status Date / Time No Known Allergies Allergy Verified 06/01/22 12:28 Social History Smoking Status: Current some day smoker tobacco type: cigarettes ROS <Arlene Lopez RN - Last Filed: 10/02/23 16:55> ROS ED Constitutional Constitutional ED: Reports sweats; Denies chills, fever(s) or weight loss Eyes Eyes: Denies change in vision ENT ENT ED: Denies rhinorrhea or sore throat Cardiovascular Cardiovascular: Denies chest pain Respiratory/Chest Respiratory/Chest: Reports cough; Denies dyspnea or dyspnea on exertion Gastrointestinal Gastrointestinal: Reports diarrhea and nausea; Denies abdominal pain, melena or vomiting Genitourinary Genitourinary ED: Denies dysuria, hematuria or urinary frequency Musculoskeletal Musculoskeletal: Denies arthralgias or myalgias Neurologic Neurologic: Reports headache(s) EXAM <Arlene Lopez RN - Last Filed: 10/02/23 16:55> Physical Exam Const Vital Signs: 10/02/23 13:10 Temperature 98.6 F Temperature Source Oral Pulse Rate 65 Respiratory Rate 12 Blood Pressure 132/112 H Blood Pressure Mean 118 Pulse Ox 100 Oxygen Delivery Method Room Air Positive well nourished and well developed General Appearance ED: well developed HEENT Reports dry mucous membranes Mouth ED: Yes dry mucous membranes Mouth: dry mucous membranes Eyes PERRL and EOMs intact bilaterally Chest Wall inspection of chest normal and palpation of chest normal Resp normal respiratory effort and clear to auscultation bilaterally Cardio regular rate, regular rhythm, S1 normal heart sound and S2 normal heart sound GI normal to inspection, nondistended, normoactive bowel sounds and non-tender Auscultation: normoactive bowel sounds Palpation: soft Extremity normal to inspection Neuro oriented x3 Sensorium / Orientation: alert Motor Exam: strength 5/5 throughout Psych mental status grossly normal Skin no rashes or lesions noted <Dr. Jordy Rojas MD - Last Filed: 10/02/23 17:06> Physical Exam Const Vital Signs: 10/02/23 13:10 Temperature 98.6 F Temperature Source Oral Pulse Rate 65 Respiratory Rate 12 Blood Pressure 132/112 H Blood Pressure Mean 118 Pulse Ox 100 Oxygen Delivery Method Room Air MDM <Arlene Lopez RN - Last Filed: 10/02/23 16:55> [facility] MDM Narrative Medical decision making narrative: IV initiated and labs drawn. Labwork obtained to evaluate for leukocytosis, anemia, and electrolyte derangement. COVID, influenza, and RSV swab ordered. IV fluid bolus ordered for dry mucous membranes. History & Record Review Discussion w/independent historian: Patient Lab Data Attestation: I reviewed the patient's lab results. Labs: Laboratory Results - last 24 hr 10/02/23 13:30 WBC 7.1 RBC 4.76 Hgb 14.7 Hct 43.5 MCV 91.4 MCH 30.9 MCHC 33.8 RDW Std Deviation 47.5 H RDW Coeff of Gail 14.2 Plt Count 205 MPV 11.1 Immature Gran % (Auto) 0.400 Neut % (Auto) 60.8 Lymph % (Auto) 26.4 Rolette % (Auto) 9.3 Eos % (Auto) 2.1 Baso % (Auto) 1.0 Absolute Neuts (auto) 4.3 Absolute Lymphs (auto) 1.87 Nucleated RBC % 0 Sodium 136 Potassium 3.9 Chloride 105 Carbon Dioxide 26.0 Anion Gap 5 BUN 17 Creatinine 0.81 Estim Creat Clear Calc 93.49 Est GFR (MDRD) Af Amer 126 Est GFR (MDRD) Non-Af 104 BUN/Creatinine Ratio 21.0 H Glucose 117 H Calcium 9.3 Differential Diagnosis Abdominal Pain: Cholecystitis and UTI Management Discussion w/another healthcare provider: Other (Dr Rojas, ED Provider) Treatment and Re-Evaluation :: CBC was normal with a white count of 7.1 with 60.8 neutrophils. Hemoglobin is 14.7. Chemistry is unremarkable except for glucose of 117. COVID flu and RSV are negative. Patient received 500 ml IV fluid bolus. Patient was ambulated in the hallway with a walker. Patient had shuffling gait. Manager [place] with patient reports this is normal. Plan to discharge patient home with instructions to use walker with ambulation at all times. May use Tylenol for headache. Patient to maintain adequate hydration and nutritional intake. Patient and c application developer are agreeable with plan. <Dr. Jordy Rojas MD - Last Filed: 10/02/23 17:06> [facility] Narrative Medical decision making narrative: IV initiated and labs drawn. Labwork obtained to evaluate for leukocytosis, anemia, and electrolyte derangement. COVID, influenza, and RSV swab ordered. IV fluid bolus ordered for dry mucous membranes. I have personally performed a face to face assessment of the patient and have reviewed the FAWN Note. I performed a substantive portion of the visit including all aspects of the following. My hills findings include: History is remarkable for cognitive impairment. Symptoms developed at work. He felt generalized weakness. He complains of aches. He has mild headache. He does give upper respiratory viral-like symptoms. Exam is remarkable for patient appearing ill but not toxic. Vital signs reveal slight elevation of blood pressure. HEENT exam is remarkable for nasal congestion. Posterior pharynx out erythema or exudate. Uvula midline. No deviation with protrusion. Neck is supple with no meningeal findings. Heart is regular. There is no murmur, gallop or rub. Lungs reveal no wheeze rales rhonchi. Abdomen is soft nontender. Bowel sounds are diminished. There is no CVA tenderness. Lower extremity exam is unremarkable, there is no asymmetry, swelling, discoloration, leg vein distention, palpable cords or tenderness along the distribution of the deep venous system. Medical Decision Making rapid COVID antigen was obtained as well as basic blood work. Patient's workup is unremarkable. Person from skilled nursing who cares for him was concerned that he is not able to ambulate. Patient was able ambulate in the nava with a walker. He normally has a shuffled gait which was observed. Other additions or changes: Discharged to skilled nursing in stable condition. Lab Data Lab results narrative: CBC is normal. Basic metabolic panel is unremarkable with a slight elevation of glucose of 117 with normal CO2 and anion gap. Labs: Laboratory Results - last 24 hr 10/02/23 13:30 WBC 7.1 RBC 4.76 Hgb 14.7 Hct 43.5 MCV 91.4 MCH 30.9 MCHC 33.8 RDW Std Deviation 47.5 H RDW Coeff of Gail 14.2 Plt Count 205 MPV 11.1 Immature Gran % (Auto) 0.400 Neut % (Auto) 60.8 Lymph % (Auto) 26.4 Rolette % (Auto) 9.3 Eos % (Auto) 2.1 Baso % (Auto) 1.0 Absolute Neuts (auto) 4.3 Absolute Lymphs (auto) 1.87 Nucleated RBC % 0 Sodium 136 Potassium 3.9 Chloride 105 Carbon Dioxide 26.0 Anion Gap 5 BUN 17 Creatinine 0.81 Estim Creat Clear Calc 93.49 Est GFR (MDRD) Af Amer 126 Est GFR (MDRD) Non-Af 104 BUN/Creatinine Ratio 21.0 H Glucose 117 H Calcium 9.3 Discharge Plan Triage Chief Complaint: Headache Other Complaint: Upper Extremity Injury ED Provider: Jordy Rojas Dx/Rx/DC Orders Clinical Impression: Headache, Weakness, Systemic viral illness Instructions: ED Headache Unspecified, ED Weakness (Uncertain Cause) Prescriptions: No Action Paxlovid 300 mg (150 mg x 2)-100 mg tablets,dose pack See Rx Instructions PO .COMPLEX Qty: 30 0RF Rx Instructions: take TWO 150 mg tablets of nirmatrelvir with ONE 100 mg tablet of ritonavir twice daily for 5 days PO metformin 1,000 MG tablet,ER bessy.retention 24 hr 500 mg PO BID empagliflozin [Jardiance] 25 tablet 25 mg PO DAILY warfarin [Jantoven] 5 MG tablet 5 mg PO DAILY@1700 cephalexin 500 MG capsule 500 mg PO Q6 Qty: 40 0RF nicotine 14 MG patch 24 hour 21 mg transdermal DAILY polyethylene glycol 3350 17 GM packet 17 g PO DAILY clotrimazole-betamethasone 1 APPLIC cream 1 applic topical BID PRN (Reason: Itching) ergocalciferol (vitamin D2) [Vitamin D2] 50,000 UNIT capsule 1 unit PO QMONTH bupropion HCl (smoking deter) 150 MG tablet extended release 12 hr 150 mg PO BID clindamycin HCl 150 MG capsule 300 mg PO 4X/DAY Qty: 80 0RF Primary Care Provider: Aurelio Perera Referrals: Aurelio Perera MD [Primary Care Provider] - Activity Restrictions/Additional Instructions: Rest Use walker when walking. Drink plenty of fluids. May use Tylenol for headache. Disposition Disposition: Home, Self Care
[2023-10-02 17:10] VITALS: BP 120/84; PULSE 64; RESP 16; O2SAT 99
--- OUTSIDE RECORDS SUMMARY | 2023-10-02 18:52 | XMS RPT_ITS | CCD ---
Author Name Unknown Address [address] [place] [address] Organization [facility] Care Team Providers Care Dental Aide Name Role Phone Eufemia Millan Unavailable [phone] Unavailable Primary Care Provider Unavailabl e Medications Completed/Discontinued Medications Medication Drug Class(es) Dates Sig (Normalized) Sig (Original) 8 hr acetaminophen 650 mg extended release oral tablet (1 source) take 1 tablet by mouth every six hours as needed acetaminophen 650 mg CR tablet Take 650 mg by mouth every 6 hours as needed. 0 Active Problems Active Problems Problem Classification Problem Date Documented Da te Episodic/Chronic Osteoarthritis (2 sources) Degenerative joint disease of shoulder region; Translations: [Primary osteoarthritis, right shoulder] Onset: 01-18-2017 02-01-2017 Chronic Past or Other Problems Problem Classification Problem Date Documented Da te Episodic/Chronic Abdominal pain (1 source) Right upper quadrant pain; Translations: [Right upper quadrant pain] Onset: 06-08-2011 06-08-2011 Episodic Biliary tract disease (1 source) Gallstone; Translations: [Calculus of gallbladder without cholecystitis without obstruction] Onset: 06-08-2011 06-08-2011 Episodic Fracture of upper limb (6 sources) Unspecified nondisplaced fracture of surgical neck of right humerus, subsequent encounter for fracture with routine healing; Translations: [Unspecified fracture of the lower end of right radius, initial encounter for closed fracture] Onset: 08-15-2016 10-19-2016 Episodic Other connective tissue disease (3 sources) Adhesive capsulitis of right shoulder; Translations: [Traumatic myositis ossificans] Onset: 01-18-2017 01-18-2017 Episodic Other connective tissue disease (1 source) Traumatic myositis ossificans; Translations: [Myositis ossificans traumatica, unspecified site] 07-11-2012 Episodic Other gastrointestinal disorders (1 source) Peritoneal adhesion; Translations: [Peritoneal adhesions (postprocedural) (postinfection)] Onset: 06-21-2011 06-21-2011 Episodic Other non-traumatic joint disorders (3 sources) Pain in wrist; Translations: [Pain in unspecified shoulder] Onset: 08-15-2016 08-15-2016 Episodic Other non-traumatic joint disorders (1 source) Pain in unspecified shoulder; Translations: [Pain in unspecified shoulder] 07-01-2012 Episodic Results Test Name Value Interpretation Reference Range Facil ity Vital Signs Date Time Vital Sign Value Performing Clinician Riley chowdary 07-11-2012 10:08-0500 BP Diastolic 64 mm[Hg] [facility] Work Phone: 07-11-2012 10:08-0500 BP Systolic 98 mm[Hg] [facility] Work Phone: 07-11-2012 10:08-0500 Pulse (Heart Rate) 54 /min [facility] Work Phone: 07-11-2012 10:08-0500 Weight 81.65 kg [facility] Work Phone: 07-01-2012 12:03-0500 Height 170.18 cm [facility] Work Phone: Encounters Encounter Date Encounter Type Care Provider Facility Start: 10-28-2022 Telephone encounter Thania Clarke APRN.CNP Work Phone: [facility] Plan of Treatment Date Care Activity Detail Author Start: 08-27-2022 DEPRESSION ASSESSMENT DEPRESSION ASSESSMENT [facility] Start: 04-27-2022 Influenza vaccination INFLUENZA (#1) [facility] Start: 03-29-2022 COVID-19 VACCINE (5 - Booster for Moderna series) COVID-19 VACCINE (5 - Booster for Moderna series) [facility] Start: 01-10-2020 PROSTATE CANCER SCREENING DISCUSSION PROSTATE CANCER SCREENING DISCUSSION [facility] Start: 10-25-2016 End: 10-25-2016 Physical Therapy General [facility], [address] [place] [address], [id number] [facility] Work Phone: Start: 10-19-2016 End: 10-19-2016 X-ray exam of shoulder X-Ray, Shoulder [facility] Work Phone: Start: 08-17-2016 End: 08-17-2016 Ct upper extremity w/o dye CT Upper Extremity [facility] Work Phone: Start: 08-15-2016 End: 08-15-2016 X-ray exam of wrist X-Ray, Wrist [facility] Work Phone: Start: 2015 SHINGRIX VACCINE (1 of 2) SHINGRIX VACCINE (1 of 2) [facility] Start: 2010 COLOGUARD (FIT-DNA) COLOGUARD (FIT-DNA) [facility] Start: 2010 Colonoscopy COLONOSCOPY [facility] Start: 2010 COLORECTAL CANCER SCREENING COLORECTAL CANCER SCREENING [facility] Start: [address] COLONOGRAPHY [facility] Start: 2010 DIABETES SCREEN DIABETES SCREEN [facility] Start: 2010 FECAL OCCULT BLOOD FECAL OCCULT BLOOD [facility] Start: 2010 SIGMOIDOSCOPY SIGMOIDOSCOPY [facility] Start: 01-10-2000 LIPID SCREEN LIPID SCREEN [facility] Start: 01-10-1984 Urine microalbumin profile DTAP,TDAP,TD (1 - Tdap) [facility] Start: 1983 HEPATITIS C SCREENING HEPATITIS C SCREENING [facility] Start: 1983 HIV SCREENING HIV SCREENING [facility] Start: 1971 PNEUMOCOCCAL (1 - PCV) PNEUMOCOCCAL (1 - PCV) [facility] Start: 1965 HEPATITIS B (1 of 3 - 3-dose series) HEPATITIS B (1 of 3 - 3-dose series) [facility] Payers Date Payer Category Payer Medicaid MEDICAID [facility] MEDICAID [id number] 2016-Present [phone] [address] [place] [address] Medicaid [id number] 2016 Medicaid [id number] 2000 Medicare MEDICARE MEDICAR E A AND B [id number] 2000-Present [phone] [address] [address] [place] [address] Medicare [id number] 2000 Medicare [id number] Social History Date Type Detail Facility Start: 09-07-2016 Tobacco smoking stat us VTIS Smokes tobacco daily [facility] History of tobacco use Cigarette Smoker [facility] Start: 09-07-2016 Cigarettes smoked cu rrent (pack per day) - Reported 0.5 [facility] Start: 09-07-2016 Tobacco use and exposure Mari r smokeless tobacco user [facility] End: 08-27-2008 History of tobacco use User of smokeless tobacco [facility] Start: 10-27-2022 Alcohol intake Current non-dr paperboard box maker of alcohol (finding) [facility] Start: 09-07-2016 Alcohol Comment attempting to quit 09/07/16 [facility] Start: 1965 Sex Assigned At Not on file [facility] Note 10-31-2022 Telephone Encounter - Gely William LPN - 10/31/2022 11:27 AM ESTTelephone Encounter - Virginia Oneal - 10/29/2022 1:25 PM ESTTelephone Encounter - Thania Clarke APRN.CNP - 10/28/2022 10:15 AM EST Note Date & Type Note Facility 10-31-2022 Miscellaneous Notes Formattin g of this note might be different from the original. Phone call placed patient's caregiver advised (see prior provider encounter) Patient's caregiver Jonelle verbalized understanding, agreed with plan of care. eGly William LPN Left message for patient to return call. Virginia Oneal Attempted to call jonelle his caregiver with results at [phone]. Left message for her to return call about negative covid results. If she calls back please tell her thank you documented in this encounter [facility] Progress note 10-27-2022 Note Date & Type Note Facility 10-27-2022 Note HNO ID: [id number] Author: Rudolph Morales MD Service: ? Author Type: Physician Type: Progress Notes Filed: 10/27/2022 11:18 AM Note Text: Patient presents with: Fever: Pt presented with caregiver [facility] , reported cough, intermittent SOB, x1 day. HPI: Feeling sick since yesterday. Temp 100.4 today. Positive symptoms: cough, Wheezing, Sore throat, Nasal Congestion, Rhinorrhea, Fever, Negative symptoms: Chest pain, Vomiting, Diarrhea, OTC: Tylenol Has had COVID illness. PAST MEDICAL HISTORY Diagnosis Date Bipolar disorder (HCC) Cognitive disorder Dermatitis Diabetes mellitus type II Eczema Fetishism Hearing loss Hypercholesterolemia Hypertension MR (mental retardation) OCD (obsessive compulsive disorder) Osteoarthritis Psychotic disorder ([facility]) Rosacea Seasonal allergies Seizures ([facility]) UTI (lower urinary tract infection) MEDICATIONS: Current Outpatient Medications Medication Sig ELIQUIS 5 mg tab(s) metFORMIN (GLUCOPHAGE) 500 mg tablet Take 500 mg by mouth daily with breakfast. melatonin 10 mg cap Take by mouth. acetaminophen 650 mg CR tablet Take 650 mg by mouth every 6 hours as needed. METRONIDAZOLE 1 % TOPICAL GEL q day face enoxaparin (LOVENOX) 60 mg/0.6 mL syrg Inject 60 mg subcutaneously q 12 HR. HYDROcodone-acetaminophen (NORCO) 5-325 mg per tablet Take 1 tablet by mouth every 6 hours as needed. metoclopramide HCl (REGLAN) 10 mg tablet Take 10 mg by mouth four times daily. ondansetron (ZOFRAN, HYDROCHLORIDE,) 8 mg tablet Take 8 mg by mouth every 8 hours as needed. warfarin (COUMADIN) 5 mg tablet Take 5 mg by mouth once daily. (Patient not taking: Reported on 10/27/2022) LACTOSE-REDUCED FOOD (ENSURE ACTIVE CLEAR ORAL) Take 120 mL by mouth four times daily. clomiPRAMINE (ANAFRANIL) 75 mg ORAL capsule Take 1 capsule by mouth three times daily. tamsulosin (FLOMAX) 0.4 mg ORAL Cp24 Take 1 capsule by mouth daily at bedtime. risperidone 0.25 mg ORAL tablet Take 1 tablet by mouth twice daily. meloxicam (MOBIC) 15 mg ORAL tablet Take 1 tablet by mouth once daily. propranolol 10 mg ORAL tablet Take 1 tablet by mouth twice daily. pioglitazone (ACTOS) 15 mg ORAL tablet Take 1 tablet by mouth once daily. aspirin 81 mg ORAL chewable tablet Take 1 tablet by mouth once daily. citalopram 20 mg ORAL tablet Take 1 tablet by mouth once daily. promethazine (PHENERGAN) 25 mg ORAL tablet Take 1 tablet by mouth every 4 hours as needed. FOR NAUSEA ciprofloxacin (CIPRO) 500 mg ORAL tablet Take 1 tablet by mouth twice daily. FOR 14 DAYS. furosemide 20 mg ORAL tablet Take 1 tablet by mouth once daily. fluconazole 100 mg ORAL tablet Take 1 tablet by mouth once daily. KETOCONAZOLE 2 % TOPICAL CREAM bid to cm past focal areas of pick/scratch--arms/legs/face/scalp--otehr areas if emergent TRIAMCINOLONE ACETONIDE 0.1 % TOPICAL CREAM BID apply to affected areas, not face or skin folds--prn itch/scratch--at least hour adfter ketoconazole clotrimazole(ANTIFUNGAL (CLOTRIMAZOLE) 1 % TOPICAL CREAM) metrog metroNIDAzole 0.75 % TOPICAL Gel Apply to affected area(s) twice daily. atorvastatin (LIPITOR) 20 mg ORAL Tab Take one(1) tablet daily. divalproex DR (DEPAKOTE) 500 mg ORAL TbEC 1000 mg daily triamcinolone 0.1 % TOPICAL Crea BID apply to broad areas of affected skin--not face or skin folds. No current facility-administered medications for this visit. ALLERGIES: ALLERGIES No Known Allergies VITALS: BP 116/68 Pulse 63 Temp 37.1 ?C (98.8 ?F) (Tympanic) Resp 18 Wt 76.4 kg (168 lb 6.4 oz) SpO2 97% BMI 27.18 kg/m? PHYSICAL EXAM: GEN: Alert, in no acute distress, flat affect HEENT: PERRL, EOMI, conjunctiva clear Ears: canals occluded by cerumen Sinuses: non-tender frontal sinus, non-tender maxillary sinuses Throat: moist mucous membranes, no erythema, no exudate Neck: supple, no thyromegaly, no lymphadenopathy HEART: regular rate and rhythm, no murmurs LUNGS: clear to auscultation, no wheezes or crackles, no increased WOB ASSESSMENT/PLAN: 1. URI, acute - ICD9: 465.9, ICD10: J06.9 - suspect viral URI, differential includes COVID-19. - Discussed supportive care treatment with home isolation, rest, OTC cold medicine, and analgesia. - Red flags to seek further treatment include chest pain, shortness of breath, and lethargy; in the ER if severe. - 2019 CORONAVIRUS Results to [phone], Jonelle Morales MD [facility] Summary Purpose Family History No Family History Records Found Advance Directives No Advanced Directives Records Found Additional Source Comments Source Comments (unrecognize d section and content) In the event this informatio n is protected by the Federal Confidentiality of Alcohol and Drug Abuse Patient Records regulations: The Federal rules restrict any use of the information to criminally investigate or prosecute any alcohol or drug abuse patient.[facility] Reason for Visit (unrecogniz ed section and content) (unrecognized sect ion and content) No Status Records Found INFORMATION SOURCE (unrecogn ized section and content) FOR RECORDS PERTAINING TO PATIENTS WHO ARE OR HAVE BEEN ENROLLED IN A CHEMICAL DEPENDENCY/SUBSTANCEABUSE PROGRAM, SOME INFORMATION MAY BE OMITTED. This clinical summary was aggregated from multiple sources. Caution should be exercised in using it in the provision of clinical care. This summary normalizes information from multiple sources, and as a consequence, information in this document may materially change the coding, format and clinical context of patient data. In addition, data may be omitted in some cases. CLINICAL DECISIONS SHOULD BE BASED ON THE PRIMARY CLINICAL RECORDS. [employer] provides no warranty or guarantee of the accuracy or completeness of information in this document.
== END 2023-10-02 17:11 | disposition home or self-care (01) ==
PROVIDERS: Emergency Provider Emergency Medicine; PCP Family Medicine; Visit Provider Emergency Medicine
DX: B34.9 Viral infection, unspecified (principal); R53.1 Weakness; F17.210 Nicotine dependence, cigarettes, uncomplicated; R51.9 Headache, unspecified; I10 Essential (primary) hypertension
CPT/HCPCS: 80048; 85025; 87631; 99283; J7040; A4216

== ENCOUNTER → 2024-08-05 | Outpatient (CLI) | payer MEDICARE, MEDICAID, SELFPAY ==
[2024-08-05 17:23] LABS: Hemoglobin A1c 6.1 % (3.8-5.6)
== END | disposition home or self-care (01) ==
PROVIDERS: PCP Family Medicine; Referring Provider Family Medicine; Visit Provider Family Medicine
DX: E11.65 Type 2 diabetes mellitus with hyperglycemia (principal)
CPT/HCPCS: 36415; 83036

== ENCOUNTER 2024-11-13 08:45 | Outpatient (RCR) | payer MEDICARE, MEDICAID, SELFPAY ==
[2024-11-13 09:02] VITALS: BP 123/56; PULSE 64; RESP 18; TEMP 36.4
--- NOTE | 2024-11-14 08:49 | WC ---
PHOTO 11/13/24 LEFT LATERAL MASON (I)
== END 2024-11-24 23:59 | disposition home or self-care (01) ==
LOC: WC 08:45
PROVIDERS: PCP Family Medicine; Referring Provider Family Medicine; Visit Provider Internal Medicine
DX: L03.116 Cellulitis of left lower limb (principal); L98.499 Non-pressure chronic ulcer of skin of other sites with unspecified severity; I87.8 Other specified disorders of veins; M75.80 Other shoulder lesions, unspecified shoulder